=== PATIENT | female | born 1950 | race Caucasian/White ===

== ENCOUNTER → 2018-02-03 | Outpatient (CLI) | payer MEDICARE, BC ==
[2018-02-03 14:03] LABS: APPEARANCE,URINE CLEAR; BILIRUBIN,URINE NEGATIVE (NEGATIVE); COLOR,URINE YELLOW; GLUCOSE, URINE NEGATIVE (NEGATIVE); KETONES,URINE NEGATIVE (NEGATIVE); LEUKOCYTE ESTERASE,URINE SMALL (NEGATIVE); NITRITE,URINE NEGATIVE (NEGATIVE); PROTEIN,URINE NEGATIVE (NEGATIVE); URINE SPECIFIC GRAVITY 1.016; UROBILINOGEN,URINE NEGATIVE mg/dL (<2.0)
[2018-02-03 14:04] LABS: ABSOLUTE EOSINOPHILS # (AUTO) 0.2 10^3/uL (0.0-0.6); ABSOLUTE LYMPHOCYTES (AUTO) 1.4 10^3/uL (0.5-4.7); ABSOLUTE MONOCYTES (AUTO) 0.5 10^3/uL (0.1-1.4); ABSOLUTE NEUT (AUTO) 3.4 10^3/uL (1.7-8.2); BASOPHILS % (AUTO) 0.7 % (0-2); EOSINOPHILS % (AUTO) 4.2 % (0-6); HEMATOCRIT 42.5 % (36.0-47.0); HEMOGLOBIN 14.7 g/dL (12.0-15.5); LYMPHOCYTES % (AUTO) 25.7 % (13-45); MEAN CORPUSCULAR HEMOGLOBIN 29.6 pg (27.0-33.4); MEAN CORPUSCULAR HGB CONC 34.6 g/dL (32.0-36.0); MEAN CORPUSCULAR VOLUME 85 fl (80-97); MONOCYTES % (AUTO) 8.4 % (3-13); PLATELET COUNT 235 10^3/uL (150-450); RED BLOOD COUNT 4.98 10^6/uL (3.72-5.28); RED CELL DISTRIBUTION WIDTH 13.6 % (11.5-14.0); TOTAL CELLS COUNTED % (AUTO) 100 %; WHITE BLOOD COUNT 5.6 10^3/uL (4.0-10.5)
[2018-02-03 14:26] LABS: ANION GAP 8 (5-19); BLOOD UREA NITROGEN 12 mg/dL (7-20); CALCIUM 9.9 mg/dL (8.4-10.2); CARBON DIOXIDE 31 mmol/L (22-30); CHLORIDE 101 mmol/L (98-107); GLUCOSE 91 mg/dL (75-110); POTASSIUM 4.6 mmol/L (3.6-5.0); SODIUM 140.4 mmol/L (137-145)
--- NOTE | 2018-02-03 14:39 | EKG REPORT ---
SEVERITY:- ABNORMAL ECG - SINUS RHYTHM LVH BY VOLTAGE PROBABLE INFERIOR INFARCT, AGE INDETERMINATE : Confirmed by: Diana Whatley MD 03-Feb-2018 14:38:30
--- NOTE | 2018-02-03 15:04 | RADIOLOGY REPORT (SQ) ---
EXAM DESCRIPTION: CHEST PA/LATERAL COMPLETED DATE/TIME: 02/03/2018 2:51 pm REASON FOR STUDY: PRE-OP COMPARISON: None. EXAM PARAMETERS: NUMBER OF VIEWS: two views TECHNIQUE: Digital Frontal and Lateral radiographic views of the chest acquired. RADIATION DOSE: NA LIMITATIONS: none FINDINGS: LUNGS AND PLEURA: No opacities, masses or pneumothorax. No pleural effusion. MEDIASTINUM AND HILAR STRUCTURES: No masses or contour abnormalities. HEART AND VASCULAR STRUCTURES: Heart normal size. No evidence for failure. BONES: No acute findings. HARDWARE: None in the chest. OTHER: No other significant finding. IMPRESSION: NO SIGNIFICANT RADIOGRAPHIC FINDING IN THE CHEST. TECHNICAL DOCUMENTATION: JOB ID: [id number] [employer] All Rights Reserved Reading location - IP/workstation name: [email or web address]
== END ==
LOC: OD 12:49
PROVIDERS: ATTEND Orthopaedic Surgery
DX: Z01.818 Encounter for other preprocedural examination (principal); Z01.810 Encounter for preprocedural cardiovascular examination; Z01.811 Encounter for preprocedural respiratory examination; Z01.812 Encounter for preprocedural laboratory examination; E78.5 Hyperlipidemia, unspecified
CPT/HCPCS: 36415; 71046; 80048; 81001; 85025; 93005; 93010

== ENCOUNTER 2018-02-17 05:33 | Inpatient (IN) | payer MEDICARE, BC ==
[~2018-02-17 05:33] MED LIST: IBUPROFEN 800 MG in NORMAL SALINE 250 ML IV PRN; LACTATED RINGERS 1000 ML IV PRN; LANSOPRAZOLE 15 MG TAB.RAP.DR PO PRN; LIDOCAINE 0.5% INJ-PF (5 MG/ML) 50 ML SDV SUBCUT PRN; OXYCODONE HCL SR 10 MG TABLET PO PRN
[2018-02-17] MEDS ORDERED: OXYCODONE HCL SR 10 MG TABLET PO ONE (05:36)
[2018-02-17] MEDS ORDERED: LANSOPRAZOLE 15 MG TAB.RAP.DR ONE (05:36)
[2018-02-17] MEDS ORDERED: CEFAZOLIN 2 GM/D5W RTU 2 GM/50 ML RTUPB IV ONE (05:37)
[2018-02-17] MEDS ORDERED: BUPIVACAINE HCL 0.5%-EPI 1:200000 INJ/PF 30 ML VIAL ONE (06:34)
[2018-02-17] MEDS ORDERED: BUPIVACAINE INJ/PF LIPOSOME/PF 266 MG/20 ML SDV ONE (06:35)
[2018-02-17] MEDS ORDERED: FENTANYL CITRATE INJ/PF 250 MCG/5 ML AMPULE ONE (06:59)
[2018-02-17] MEDS ORDERED: HYDROMORPHONE HCL INJ/PF 2 MG/ML AMPULE ONE (06:59)
[2018-02-17] MEDS ORDERED: MIDAZOLAM 2 MG/2 ML INJ ONE (06:59)
[2018-02-17] MEDS ORDERED: FENTANYL CITRATE INJ/PF 100 MCG/2 ML AMPUL ONE (06:59)
[2018-02-17] MEDS ORDERED: DEXAMETHASONE SOD PHOSPHATE INJ 4 MG/1 ML VIAL ONE (07:00)
[2018-02-17] MEDS ORDERED: ONDANSETRON HCL INJ/PF 4 MG/2 ML SDV ONE (07:00)
[2018-02-17] MEDS ORDERED: TRANEXAMIC ACID INJ/PF 1,000 MG/10 ML SDV IV ONE ×3 (07:00→15:18)
[2018-02-17] MEDS ORDERED: PROPOFOL INJ 200 MG/20 ML VIAL IV ONE (07:00)
[2018-02-17] MEDS ORDERED: SUCCINYLCHOLINE CHLORIDE INJ 200 MG/10 ML VIAL ONE (09:03)
[2018-02-17] MEDS ORDERED: MORPHINE SULFATE 10 MG/ML INJ IV PRN (09:36)
[2018-02-17] MEDS ORDERED: PROMETHAZINE HCL INJ 25 MG/1 ML VIAL IV PRN ×2 (09:36)
[2018-02-17] MEDS ORDERED: FENTANYL CITRATE INJ/PF 100 MCG/2 ML AMPUL IV PRN ×3 (09:36)
[2018-02-17] MEDS ORDERED: OXYCODONE-ACETAMINOPHEN 5-325 MG TABLET PO PRN ×4 (09:36→11:32)
[2018-02-17] MEDS ORDERED: DIPHENHYDRAMINE HCL 50 MG/ML VIAL IV PRN (09:36)
[2018-02-17] MEDS ORDERED: MEPERIDINE HCL/PF INJ 25 MG/1 ML DISP.SYRIN IV PRN (09:36)
--- NOTE | 2018-02-17 11:01 | Operative Report ---
Operative Report DATE OF SURGERY: 02/17/18 PREOPERATIVE DIAGNOSIS: Left shoulder glenohumeral joint arthritis POSTOPERATIVE DIAGNOSIS: same OPERATION: Left total shoulder arthroplasty SURGEON: SHREYAS TOMPKINS ANESTHESIA: GA TISSUE REMOVED OR ALTERED: humeral head COMPLICATIONS: none ESTIMATED BLOOD LOSS: 200mL INTRAOPERATIVE FINDINGS: as above PROCEDURE: Arthrex apex stem size 9 mm Humeral head component was a 44/17 mm Glenoid component was a size medium Patient received antibiotics in the preop holding area. Patient was transferred to the OR where the patient was successfully intubated. Patient then was secured in a beachchair position where the left shoulder was prepped and draped in a normal sterile surgical fashion. Once timeout was done identifying the left shoulder the correct site I proceeded to use quarter percent Marcaine with epinephrine and injected in the anticipated incision. I used a 10 blade to status my incision and then used hemostasis with electrocautery. I exposed the deltopectoral interval and proceeded to do a deltopectoral approach. I retracted the conjoined tendon medially and dissecting the cephalic vein and deltoid and retracting it laterally. I reflected the subscapularis tendon off the lesser tuberosity and tagged it with a Vicryl stitch. I proceeded to release capsule to dislocate the shoulder joint. While the head was dislocated I was able to resect inferior humeral osteophyte as expected Rotator cuff is intact. I proceeded applied the guide and pinned securely after I make sure I was satisfied with the angle and retroversion of my humeral head cut. Humeral head cut was done with an oscillating saw and the piece was placed in the back table for measurement. The pins were removed and then we proceeded to broach all the way up to the appropriate size. The humeral shaft was then reflected posteriorly and glenoid retractors were placed which gave us good glenoid exposure. Labrum and superior biceps stump was resected exposing the glenoid. I proceeded then to use the glenoid guide to drill and the center portion of the glenoid. I then proceeded to ream and I had bleeding bone. Also satisfied with the size of the glenoid and then proceeded to drill the peg holes. A trial glenoid was applied and then retractors removed and the humeral head was exposed. We placed a trial head and proceeded to test range of motion and stability. Once I was satisfied with the appropriate size used and I proceeded to remove all components. I first removed the glenoid and cemented it in. wait until cement had cured and hardened. Any excess cement was removed. I then proceeded to remove the humeral stem and placed the final stem. Of note I had placed 2 drill holes in the lesser tuberosity and place FiberWire with its appropriate needle for fixation and repair of the subscapularis tendon. I followed the Arthrex technique as described in their pamphlet. Secured the inferior and superior screw using the torque limiter. Once the glenoid and stem was seated I trialed with humeral head one more time and then placed the final humeral head component. Irrigation was done at this point. I tied the sutures as instructed by the technique. Placed the arm in range of motion and noticed that the repair was solid. At this point we turned to closure and we approximated the deltoid interval after removing the retractors and closed the subcutaneous tissue with 0 Vicryl and 2-0 Vicryl. Exparel had been injected deep and then superficially. I proceeded then to close my subtenons tissue with 0 Vicryl and 2-0 Vicryl for the dermis and milagro for skin. Acticoat was applied and then covered with an OpSite dressing. Drapes were removed and the sling was applied and then the patient was placed in supine position where the patient was extubated and sent to PACU in stable condition.
[2018-02-17] MEDS ORDERED: ONDANSETRON HCL INJ/PF 4 MG/2 ML SDV IV PRN (11:15)
[2018-02-17] MEDS ORDERED: MAG HYDROX/AL HYDROX/SIMETH SUSP 30 ML UDCUP PO PRN (11:15)
[2018-02-17] MEDS ORDERED: RINGERS SOLUTION,LACTATED 1,000 ML IV PRN (11:15)
[2018-02-17] MEDS ORDERED: ESCITALOPRAM OXALATE 10 MG TABLET PO PRN (11:19)
[2018-02-17] MEDS: FENTANYL CITRATE INJ/PF 100 MCG/2 ML AMPUL ONE ×2 (11:32→11:37)
--- NOTE | 2018-02-17 12:52 | RADIOLOGY REPORT (SQ) ---
EXAM DESCRIPTION: SHOULDER LEFT 2 OR MORE VIEWS COMPLETED DATE/TIME: 02/17/2018 12:26 pm REASON FOR STUDY: S/P LEFT SHOULDER ARTHROPLASTY. M19.012 PRIMARY OSTEOARTHRITIS, LEFT SHOULDER COMPARISON: None. NUMBER OF VIEWS: Three views. TECHNIQUE: Internal rotation, external rotation, images acquired of the left shoulder. LIMITATIONS: None. FINDINGS: MINERALIZATION: Normal. BONES: No acute fracture or dislocation. JOINTS: The patient is in a cast which limits positioning. Status post left shoulder arthroplasty. VISUALIZED LUNGS AND RIBS: No pneumothorax. No rib fracture. SOFT TISSUES: Post surgical changes. OTHER: No other significant finding. IMPRESSION: 1. Status post left shoulder arthroplasty. TECHNICAL DOCUMENTATION: JOB ID: [id number] [employer]- All Rights Reserved Reading location - IP/workstation name: [email or web address]
[2018-02-17] MEDS: ONDANSETRON HCL INJ/PF 4 MG/2 ML SDV IV PRN ×2 (15:05→21:46)
[2018-02-17] MEDS: SENNOSIDES/DOCUSATE 8.6-50 MG 1 EACH TABLET PO SCH (18:05)
[2018-02-17] MEDS: OXYCODONE HCL SR 10 MG TABLET PO SCH (18:05)
[2018-02-17] MEDS: PREGABALIN 75 MG CAPSULE PO SCH (18:05)
[2018-02-17] MEDS: IBUPROFEN 800 MG in NORMAL SALINE 250 ML IV SCH (18:16)
[2018-02-17] MEDS ORDERED: VANCOMYCIN HCL 1,000 MG in DEXTROSE 5%-WATER 250 ML IV ONE (23:00)
[2018-02-18] MEDS: IBUPROFEN 800 MG in NORMAL SALINE 250 ML IV SCH ×3 (03:20→18:09)
[2018-02-18] MEDS: OXYCODONE HCL SR 10 MG TABLET PO SCH ×2 (05:00→17:53)
[2018-02-18] MEDS: PREGABALIN 75 MG CAPSULE PO SCH ×2 (05:00→17:53)
[2018-02-18] MEDS ORDERED: LANSOPRAZOLE 30 MG TAB.RAP.DR PO SCH (06:00)
[2018-02-18 06:12] LABS: HEMOGLOBIN 12.2 g/dL (12.0-15.5); MEAN CORPUSCULAR HEMOGLOBIN 29.2 pg (27.0-33.4); MEAN CORPUSCULAR VOLUME 86 fl (80-97); PLATELET COUNT 202 10^3/uL (150-450); RED BLOOD COUNT 4.19 10^6/uL (3.72-5.28); RED CELL DISTRIBUTION WIDTH 13.9 % (11.5-14.0); WHITE BLOOD COUNT 12.6 10^3/uL (4.0-10.5)
[2018-02-18 06:31] LABS: ANION GAP 8 (5-19); BLOOD UREA NITROGEN 13 mg/dL (7-20); CALCIUM 8.9 mg/dL (8.4-10.2); CARBON DIOXIDE 28 mmol/L (22-30); CHLORIDE 102 mmol/L (98-107); GLUCOSE 115 mg/dL (75-110); POTASSIUM 4.2 mmol/L (3.6-5.0); SODIUM 138.1 mmol/L (137-145)
[2018-02-18] MEDS ORDERED: PRENATAL VITAMIN W DHA CAPSULE PO SCH (10:00)
[2018-02-18] MEDS: SENNOSIDES/DOCUSATE 8.6-50 MG 1 EACH TABLET PO SCH ×2 (10:15→17:53)
--- NOTE | 2018-02-18 15:58 | PDOC DISCHARGE SUMMARY ---
General - Admit/Disc Date/PCP Admission Date/Primary Care Provider: 02/17/18 05:33 VERONICA WHEATLEY MD Discharge Date: 02/18/18 - Discharge Diagnosis (1) Status post total shoulder arthroplasty Is this a current diagnosis for this admission?: Yes - Additional Information Resuscitation Status: Full Code Home Medications: Acetaminophen [Tylenol 325 mg Tablet] 650 mg PO Q4HP PRN 02/17/18 Atorvastatin Calcium [Lipitor 10 mg Tablet] 10 mg PO QHS 02/17/18 Escitalopram Oxalate [Lexapro 10 mg Tablet] 10 mg PO DAILY 02/17/18 Naproxen Sodium [Aleve] 220 mg PO Q8HP PRN 02/17/18 History of Present Illness History of Present Illness: SONA DE LA PAZ is a 67 year old female with known left shoulder arthritis. Patient went through conservative treatment including injection and home exercises. She also took anti-inflammatories but at some point patient's pain was not well controlled so the patient elected to proceed with left total shoulder arthroplasty. Surgery was done on 02/17/2018. Surgery was uneventful. Patient was admitted overnight for pain control. No issues overnight. Pain adequately controlled with p.o. narcotics. No fevers or chills. No numbness or tingling or paresthesias. Patient will be discharged on 02/18/2018. Hospital Course Hospital Course: On 02/17/2018 patient underwent left total shoulder arthroplasty. Today on 02/18/2018 patient's pain is well controlled with oxycodone. Sling is in proper place. She is neurovascular intact. Vital signs are stable and labs are within normal limits therefore she will be discharged today to home. Physical Exam Vital Signs: Temp Pulse Resp BP Pulse Ox 36.6 C 66 14 135/62 H 94 02/18/18 12:02 02/18/18 12:02 02/18/18 12:02 02/18/18 12:02 02/18/18 12:02 Intake & Output 02/17/18 02/18/18 02/19/18 06:59 06:59 06:59 Intake Total 0 1550 242 Output Total 1600 Balance 0 -50 242 Weight 86.18 kg 98.8 kg General appearance: PRESENT: no acute distress Eye exam: PRESENT: EOMI. ABSENT: nystagmus Mouth exam: PRESENT: neck supple Adult Front & Back Image: 1 - Dressing is dry clean and intact. Left upper extremity in the sling and well-positioned. Has good sensation to light touch in the radial ulnar nerve distribution. Able to flex and extend her wrist and digits without difficulty. Good capillary refill and good radial pulse. Results Laboratory Results: 02/18/18 05:44 02/18/18 05:44 02/18/18 02/18/18 05:44 05:44 WBC 12.6 H RBC 4.19 Hgb 12.2 Hct 36.0 MCV 86 MCH 29.2 MCHC 34.0 RDW 13.9 Plt Count 202 Sodium 138.1 Potassium 4.2 Chloride 102 Carbon Dioxide 28 Anion Gap 8 BUN 13 Creatinine 0.51 L Est GFR ( Amer) > 60 Est GFR (Non-Af Amer) > 60 Glucose 115 H Calcium 8.9 Impressions: Shoulder X-Ray 02/17/18 00:00 IMPRESSION: 1. Status post left shoulder arthroplasty. Status: Image reviewed by me Qualifiers - * PATIENT BEING DISCHARGED WITH ANY OF THE FOLLOWING DIAGNOSIS: No VTE patient discharged on overlapping Therapy?: No Reason(s) for not prescribing Overlap Therapy:: Not indicated Plan Discharge Plan: Patient is status post left total shoulder arthroplasty. Surgery went uneventful. X-rays showed good position of the implants. On exam she has a sling placed in appropriate position. She is neurovascular intact. Dressing is dry clean and intact. Patient instructed to follow-up in 10-14 days for wound check. Instructed to do pendulum exercises and passive range of motion exercises. Instructed to remove the dressing and couple days and then okay to shower the extremity. After showering she should keep it dry clean and intact. Able to do the pendulum exercises at breakfast, lunch, dinner and showers. Instructed to follow-up in the office sooner if she develops fevers chills nausea vomiting redness or any other symptoms. Prescriptions were provided for pain control and nausea.
[2018-02-18 16:49] VITALS: BP 136/70
[2018-02-18] MEDS ORDERED: ATORVASTATIN CALCIUM 10 MG TABLET PO SCH (22:00)
== END 2018-02-18 18:27 | disposition home health service (06) | DRG 483 ==
LOC: INOR 05:33 → 4S 12:40
PROVIDERS: ADMIT Orthopaedic Surgery; ATTEND Orthopaedic Surgery
PROC: 0RRK0JZ Replacement of Left Shoulder Joint with Synthetic Substitute, Open Approach (ICD-10-PCS; principal; 2018-02-17 07:30)
DX: M19.012 Primary osteoarthritis, left shoulder (principal); E78.00 Pure hypercholesterolemia, unspecified; F41.9 Anxiety disorder, unspecified
CPT/HCPCS: 01630; 36415; 80048; 82962; 85027; 86850; 86900; 86901; 88304; 88311; 94799; C1713; C9290; G8978-GP; G8979-GP; G8987-GO; G8988-GO; J0330; J0690; J1100; J1170; J1741; J2250; J2405; J2704; J3010; J3370; J3490; J7050; J7060

== ENCOUNTER 2020-06-01 23:17 | Inpatient (IN) | payer MEDICARE, BC ==
[2020-06-01] MEDS ORDERED: HYDROMORPHONE HCL INJ/PF 2 MG/ML AMPULE IV ONE (23:26)
[2020-06-01] MEDS ORDERED: ONDANSETRON HCL INJ/PF 4 MG/2 ML SDV IV ONE (23:26)
--- NOTE | 2020-06-01 23:28 | ER Document Report ---
ED Medical Screen (RME) - General Stated Complaint: POST OP ISSUES Time Seen by Provider: 06/01/20 23:23 Primary Care Provider: SHREYAS WALKER MD [Primary Care Provider] - Follow up as needed Notes: Patient is a 69-year-old female who presents emergency department with a chief complaint of upper abdominal pain. Patient is status post cholecystectomy as of 4 days ago. Patient started vomiting today. States the only pain medicine she took was Tylenol. Exam: Patient doubled over in pain. Moaning. I have greeted and performed a rapid initial assessment of this patient. A comprehensive ED assessment and evaluation of the patient, analysis of test results and completion of medical decision making process will be conducted by an additional ED providers. TRAVEL OUTSIDE OF THE [place] IN LAST 30 DAYS: No - Related Data Allergies/Adverse Reactions: No Known Allergies Allergy (Verified 02/02/18 11:15) Past Medical History - Past Medical History Cardiac Medical History: Reports: Hx Hypercholesterolemia Denies: Hx Atrial Fibrillation, Hx Congestive Heart Failure, Hx Coronary Artery Disease, Hx Heart Attack, Hx Hypertension, Hx Peripheral Vascular Disease, Hx Heart Murmur Pulmonary Medical History: Denies: Hx Asthma, Hx Bronchitis, Hx COPD, Hx Pneumonia, Hx Sleep Apnea Neurological Medical History: Denies: Hx Cerebrovascular Accident, Hx Seizures Endocrine Medical History: Denies: Hx Hyperthyroidism, Hx Hypothyroidism Renal/ Medical History: Denies: Hx Kidney Stones GI Medical History: Denies: Hx Gastroesophageal Reflux Disease Musculoskeltal Medical History: Reports Hx Arthritis - shoulder, Denies Hx Fibromyalgia, Denies Hx Muscular Dystrophy Psychiatric Medical History: Denies: Hx Bipolar Disorder, Hx Depression, Hx Post Traumatic Stress Disorder Traumatic Medical History: Denies: Hx Fractures Past Surgical History: Reports: Hx Hysterectomy. Denies: Hx Appendectomy, Hx Bowel Surgery, Hx Section, Hx Cholecystectomy, Hx Coronary Artery Bypass Graft, Hx Gastric Bypass Surgery, Hx Herniorrhaphy, Hx Mastectomy, Hx Pacemaker, Hx Tonsillectomy, Hx Tubal Ligation Physical Exam - Vital signs Vitals: Temp Pulse Resp BP Pulse Ox 97.8 F 85 18 151/86 H 96 06/01/20 23:22 06/01/20 23:22 06/01/20 23:22 06/01/20 23:22 06/01/20 23:22 Course - Vital Signs Vital signs: Temp Pulse Resp BP Pulse Ox 97.8 F 85 18 151/86 H 96 06/01/20 23:22 06/01/20 23:22 06/01/20 23:22 06/01/20 23:22 06/01/20 23:22 Doctor's Discharge - Discharge Referrals: SHREYAS WALKER MD [Primary Care Provider] - Follow up as needed
[2020-06-01 23:52] LABS: ABSOLUTE BASOPHILS # (AUTO) 0.2 10^3/uL (0.0-0.2); ABSOLUTE EOSINOPHILS # (AUTO) 0.2 10^3/uL (0.0-0.6); ABSOLUTE LYMPHOCYTES (AUTO) 2.2 10^3/uL (0.5-4.7); ABSOLUTE MONOCYTES (AUTO) 0.9 10^3/uL (0.1-1.4); ABSOLUTE NEUT (AUTO) 11.8 10^3/uL (1.7-8.2); BASOPHILS % (AUTO) 1.2 % (0-2); EOSINOPHILS % (AUTO) 1.1 % (0-6); HEMATOCRIT 48.9 % (36.0-47.0); HEMOGLOBIN 16.4 g/dL (12.0-15.5); LYMPHOCYTES % (AUTO) 14.3 % (13-45); MEAN CORPUSCULAR HEMOGLOBIN 27.8 pg (27.0-33.4); MEAN CORPUSCULAR HGB CONC 33.6 g/dL (32.0-36.0); MEAN CORPUSCULAR VOLUME 83 fl (80-97); MONOCYTES % (AUTO) 5.7 % (3-13); PLATELET COUNT 353 10^3/uL (150-450); RED CELL DISTRIBUTION WIDTH 13.9 % (11.5-14.0); SEGMENTED NEUTROPHILS % (AUTO) 77.7 % (42-78); TOTAL CELLS COUNTED % (AUTO) 100 %; WHITE BLOOD COUNT 15.2 10^3/uL (4.0-10.5)
[2020-06-02] MEDS ORDERED: NORMAL SALINE 1000 ML 1,000 ML IV ONE
--- NOTE | 2020-06-02 00:04 | ER Document Report ---
ED GI/ <TITO SANCHEZ - Last Filed: 06/02/20 19:33> - General Mode of Arrival: Ambulatory Information source: Patient TRAVEL OUTSIDE OF THE [place] IN LAST 30 DAYS: No - HPI Patient complains to provider of: Abdominal pain, Vomiting Onset: This afternoon Timing/Duration: Intermittent Quality of pain: Sharp Severity at maximum: Severe Severity in ED: Severe Pain Level: 5 Location: RUQ Vaginal bleeding (Compared to normal period): None Associated symptoms: Nausea, Vomiting Exacerbated by: Movement, Walking Relieved by: Denies Similar symptoms previously: Yes Recently seen / treated by doctor: Yes <DARYLMelaniePRUDENCEJHONAINSLEY - Last Filed: 06/03/20 07:04> - General Chief Complaint: Post Surgical Pain Stated Complaint: POST OP ISSUES Time Seen by Provider: 06/01/20 23:23 Primary Care Provider: SHREYAS WALKER MD [ACTIVE STAFF] - Follow up as needed Notes: 69-year-old female presented to ED for complaint of upper abdominal pain. She states she had her gallbladder removed Wednesday about 4 days ago. She states she has only been taking Tylenol for her pain. She states she been having nausea and vomiting all day. She is alert oriented respirations regular nonlabored. She is moaning in pain. She states the pain is severe. She states she does have pain medicine but she is not taking any of it. She states she had the gallbladder removed in [place] at [facility] surgery. Constitutional: Negative for fever. HENT: Negative for sore throat. Eyes: Negative for visual changes. Cardiovascular: Negative for chest pain. Respiratory: Negative for shortness of breath. Gastrointestinal: Upper mid to right abdominal pain. She does have fresh incisional wounds from endoscopic gallbladder removal. Bowel sounds are present. She states she did have a bowel movement today. She states she has been nausea and vomiting today due to the pain. Genitourinary: Negative for dysuria. Musculoskeletal: Negative for back pain. Skin: Negative for rash. Neurological: Negative for headaches, weakness or numbness. 10 point ROS negative except as marked above and in HPI. VITAL SIGNS: Within normal limits. GENERAL: No acute distress, non-toxic appearance. HEAD: Normal with no signs of head trauma. EYES: PERRLA, EOMI, conjunctiva normal, no discharge. EARS: Hearing grossly intact. NOSE: Normal. THROAT: Oropharynx is normal. NECK: Normal range of motion, no tenderness, supple, no lymphadenopathy, No adenopathy, no JVD. CHEST: Clear breath sounds bilaterally. No wheezes, rales, or rhonchi. CARDIAC: Regular rate and rhythm. S1 and S2, without murmurs, gallops, or rubs. VASCULAR: No Edema. Peripheral pulses normal and equal in all extremities. ABDOMEN: Right upper quadrant abdominal tenderness no definite pulsatile masses. She does have 5 fresh surgical incisions from a cholecystectomy 4 days ago GASTROINTESTINAL: Bowel sounds normal GENITOURINARY: Normal, No tenderness LYMPATHTIC: No lymphadenopathy noted. MUSCULOSKELETAL: Good range of motion of all major joints. Extremities without clubbing, cyanosis or edema. NEUROLOGICAL: Alert and oriented x 3. No focal sensory or strength deficits. Speech normal. Follows commands appropriately. PSYCHIATRIC: Normal Affect, judgement and mood. SKIN: Normal appearance with no rashes or lesions. (AINSLEY ESPINAL) - Related Data Allergies/Adverse Reactions: No Known Allergies Allergy (Verified 02/02/18 11:15) Past Medical History - General Information source: Patient - Social History Smoking Status: Never Smoker Frequency of alcohol use: None Drug Abuse: None Lives with: Alone Family History: Reviewed & Not Pertinent Patient has homicidal ideation: No - Past Medical History Cardiac Medical History: Reports: Hx Hypercholesterolemia Pulmonary Medical History: Reports: None EENT Medical History: Reports: None Neurological Medical History: Reports: None Endocrine Medical History: Reports: None Renal/ Medical History: Reports: None Malignancy Medical History: Reports: None GI Medical History: Reports: Hx Colonoscopy, Hx Endoscopy Musculoskeletal Medical History: Reports Hx Arthritis - shoulder Skin Medical History: Reports None Psychiatric Medical History: Reports: None Traumatic Medical History: Reports: None Infectious Medical History: Reports: None Past Surgical History: Reports: Hx Cholecystectomy, Hx Hysterectomy - Immunizations Immunizations up to date: Yes Hx Diphtheria, Pertussis, Tetanus Vaccination: Yes <AINSLEY ESPINAL - Last Filed: 06/03/20 07:04> Physical Exam - Vital signs Vitals: Temp Pulse Resp BP Pulse Ox 97.8 F 85 18 151/86 H 96 06/01/20 23:22 06/01/20 23:22 06/01/20 23:22 06/01/20 23:22 06/01/20 23:22 Course - Laboratory Results Result Diagrams: 06/02/20 08:26 06/02/20 08:26 <TITO SANCHEZ Joaquina - Last Filed: 06/02/20 19:33> - Laboratory Results Result Diagrams: 06/03/20 02:27 06/03/20 06:09 Critical Laboratory Results Reviewed: No Critical Results - Radiology Results Critical Radiology Results Reviewed: No Critical Results <MICKYJHONAINSLEY - Last Filed: 06/03/20 07:04> - Re-evaluation Re-evalutation: 06/02/20 08:47 rePort was received on the patient. I reviewed the patient's lab work. I have ordered morning labs for the patient to recheck her lab work. Her vital signs are normal. I did evaluate the patient and speak with the patient at length. She is awaiting transfer back to [facility], last conversation was approximatel y 2:30 in the morning with [facility]. Will plan to check with the transfer center this morning about bed status. Patient will remain n.p.o. 06/02/20 09:45 Patient's lab work is improved. Her liver functions are elevating slightly but her lipase has decreased to approximately 9000 from 59,000. 06/02/20 11:[address] Lindsay, surgery. We discussed the patient's case, CT imaging, lab work. Patient's T bili is 3.3 this morning which is slightly elevated from prior. He indicates patient likely has a blocking stone or an obstructive process and she will need transfer to [facility] for care she likely needs ERCP. We do not have GI on-call here today and patient had recent surgery at [facility]. We will call [facility] to discuss the patient's lab work with them. 06/02/20 11:55 I spoke with the transfer center at [facility], they will repage surgery to discuss the patient's repeat lab work and management plan 06/02/20 12:[address] Paez, surgery [facility]. They are still on regional divert. We discussed the patient's lab work and elevated T bili. She suggests MRCP to see if there is a retained stone. She did review the CT imaging. She states that patient definitely may need ERCP, aware we do not have GI on-call and cannot do ERCP. 06/02/20 14:49 I spoke with [facility] to request Dr. Paez review MRCP and call me back 06/02/20 15:[address] Paez, surgery [facility]. She indicates that she sat down with the radiologist down there and reviewed the MRCP images, they do not see any ductal dilatation or stone and suggests the patient likely just needs treatment for acute severe pancreatitis. They are still willing to take the patient but they still do not have a spot for the patient. I will discuss with Dr. Lindsay, surgeon at [facility] whether patient might be able to be treated here, she indicates that she is very willing to speak with him about it as well. 06/02/20 15:[address] Lindsay surgeon at [facility]. He states with the patient's elevated bilirubin she needs an ERCP which we cannot do here. That as this is a complication of her recent surgery at [facility] they are obligated to take the patient back there which they have agreed to do although she is on a regional wait list. He does not believe that the patient should be admitted here at [facility] as we do not have the capability to have an ERCP done at this time and do not have GI coverage today 06/02/20 15:[address] Grant, hospitalist. Have requested they come consult on the patient for medical management while she is awaiting transfer to higher level of care, we discussed the patient's evaluation, imaging and lab work studies, transfer plan and she will come see the patient 06/02/20 19:34 I was requested to call Dr. Bay by nursing, who is not public relations senior associate today but is on tomorrow to see if he can see the patient tomorrow to do an ERCP. He did not answer his cell phone so a message was left by the rail operator to call us back (TITO SANCHEZ) 06/02/20 02:37 Consult to [facility] spoke with Dr. Gee for Dr Nogueira the surgeon, Concerning postop complication with pancreatitis 4 days after a cholecystectomy. He stated he would accept the patient to the surgical floor but it would be a regional hold patient and it would be a bed available. 06/02/20 07:24 Patient has been ordered Zosyn 3.375 mg every 6 hours IV, she is on lactated Ringer's 125's milliliters an hour continuous, and she has been medicated throughout the night with Dilaudid 0.5 mg IV as needed for pain. She did receive Zofran 4 mg IV twice for nausea. She has been allowed to take small amounts of ice chips for her dry mouth. She is waiting transfer to [facility]. 06/02/20 08:05 Patient is still waiting room. Report given to Tito DANIEL 06/02/20 21:[address] Bay the industrial aerial installer. He stated he is not public relations senior associate to the ER today or tomorrow and he does not have states in his schedule tomorrow for any ERCP. 06/03/20 02:16 [facility] stated they still do not have a bed for this patient. They recommended we try another hospital. We will repeat labs at this time. And then attempt to call other hospitals. 06/03/20 05:13 Repeated labs on patient around 230. The liver enzymes and lipase are trending down but the white count has trended up to 18.6. I did consult Dr. Daley is the hospitalist. He stated that the main thing is to get her transferred to the other facility but it was pancreatitis sometimes the white count might go up or down and it does not mean that she needs a new antibiotic as long as her vital signs are stable. 06/03/20 07:02 [facility] returned the call that they did not have any beds available. [facility] [place] called back and I spoke with the Dr. Granados. She states that they have a biliary service that is not open at nighttime but that they do ERCPs on what is called a day pass. She states if the patient is admitted to an inpatient bed that they can take a day pass to [facility] have an ERCP if that is deemed necessary and then come back there to their admitted bed. She states if this is appropriate for this patient then the admitted doctor would need to call [facility] transfer center and speak to biliary services and the doctor on today would be Crystal Rob MD. If this is deemed necessary this is the only route they have for this patient as they do not have an open bed either (AINSLEY ESPINAL) - Vital Signs Vital signs: Temp Pulse Resp BP Pulse Ox 98 F 87 13 139/64 H 96 06/03/20 01:24 06/02/20 15:00 06/03/20 06:01 06/03/20 06:01 06/03/20 06:01 - Laboratory Results Laboratory Results Interpreted: 06/01/20 06/01/20 06/02/20 23:35 23:35 05:52 WBC 15.2 H RBC 5.90 H Hgb 16.4 H Hct 48.9 H RDW Absolute Neuts (auto) 11.8 H Seg Neuts % (Manual) Lymphocytes % (Manual) Monocytes % (Manual) Abs Neuts (Manual) Carbon Dioxide Glucose 193 H POC Glucose Total Bilirubin 3.1 H Direct Bilirubin 2.1 H AST 1320 H ALT 1015 H Alkaline Phosphatase 534 H Total Protein Albumin Lipase 82180.8 H Urine Ketones TRACE H Urine Urobilinogen 4.0 H 06/02/20 06/02/20 06/02/20 08:26 08:26 19:06 WBC 12.9 H RBC Hgb Hct RDW 14.2 H Absolute Neuts (auto) Seg Neuts % (Manual) 91 H Lymphocytes % (Manual) 7 L Monocytes % (Manual) 2 L Abs Neuts (Manual) 11.7 H Carbon Dioxide Glucose 168 H POC Glucose 116 H Total Bilirubin 3.3 H Direct Bilirubin 2.3 H AST 846 H ALT 982 H Alkaline Phosphatase 463 H Total Protein Albumin Lipase 9465.9 H Urine Ketones Urine Urobilinogen 06/03/20 06/03/20 06/03/20 02:27 02:27 06:09 WBC 18.6 H RBC Hgb Hct RDW 14.2 H Absolute Neuts (auto) Seg Neuts % (Manual) 87 H Lymphocytes % (Manual) 8 L Monocytes % (Manual) Abs Neuts (Manual) 16.2 H Carbon Dioxide 31 H Glucose 114 H 111 H POC Glucose Total Bilirubin 1.7 H 1.6 H Direct Bilirubin 0.7 H 0.6 H AST 262 H 195 H ALT 649 H 577 H Alkaline Phosphatase 365 H 339 H Total Protein 5.8 L 5.6 L Albumin 3.2 L 3.1 L Lipase 2508.1 H Urine Ketones Urine Urobilinogen Discharge <TITO SANCHEZ - Last Filed: 06/02/20 19:33> <AINSLEY ESPINAL - Last Filed: 06/03/20 07:04> - Discharge Clinical Impression: Elevated LFTs Acute pancreatitis Qualifiers: Pancreatitis type: unspecified pancreatitis type Acute pancreatitis complication: unspecified Qualified Code(s): K85.90 - Acute pancreatitis without necrosis or infection, unspecified Disposition: [facility] Referrals: SHREYAS WALKER MD [ACTIVE STAFF] - Follow up as needed
[2020-06-02 00:11] LABS: ALBUMIN 4.4 g/dL (3.5-5.0); ALKALINE PHOSPHATASE 534 U/L (38-126); ANION GAP 8 (5-19); BILIRUBIN,DIRECT 2.1 mg/dL (0.0-0.4); BILIRUBIN,TOTAL 3.1 mg/dL (0.2-1.3); BLOOD UREA NITROGEN 14 mg/dL (7-20); CALCIUM 10.2 mg/dL (8.4-10.2); CARBON DIOXIDE 29 mmol/L (22-30); CHLORIDE 102 mmol/L (98-107); GLUCOSE 193 mg/dL (75-110); POTASSIUM 4.2 mmol/L (3.6-5.0); TOTAL PROTEIN 7.6 g/dL (6.3-8.2)
[2020-06-02 00:19] LABS: ASPARTATE AMINO TRANSFERASE 1320 U/L (14-36)
--- NOTE | 2020-06-02 01:42 | RADIOLOGY REPORT (SQ) ---
CLINICAL HISTORY: Abdominal pain post cholecystectomy COMPARISON: None. TECHNIQUE: CT ABDOMEN PELVIS WITH IV CONTRAST on 06/02/2020 12:35 AM PRIVACY ATTORNEY This exam was performed according to our departmental dose-optimization program, which includes automated exposure control, adjustment of the mA and/or kV according to patient size and/or use of iterative reconstruction technique. FINDINGS: There is mild bibasilar atelectasis. There is a pectus excavatum. Abdomen: The liver is normal in appearance. There is no biliary dilatation. Gallbladder is not clearly seen. There is a small hiatal hernia. There is moderate inflammation surrounding the pancreas diffusely. The adrenal glands and kidneys are unremarkable. Abdominal aorta is normal in course and caliber without aneurysm. There is no free air. There is no retroperitoneal adenopathy. Pelvis: There is no bowel obstruction. Urinary bladder is unremarkable. There is no free fluid. Hysterectomy was performed. Appendix is not clearly seen. There is mild infiltration of the fat surrounding the umbilicus. Skeleton: There are no acute osseous findings. No suspicious bony lesions. IMPRESSION: Acute pancreatitis.
[2020-06-02] MEDS ORDERED: HYDROMORPHONE HCL INJ/PF 2 MG/ML AMPULE IV ONE ×2 (02:14→06:31)
[2020-06-02] MEDS ORDERED: RINGERS SOLUTION,LACTATED 1,000 ML IV ONE (02:15)
[2020-06-02] MEDS ORDERED: PIPERACILLIN/TAZOBACTAM 3.375 GM VIAL IV ONE (02:22)
[2020-06-02] MEDS ORDERED: ONDANSETRON HCL INJ/PF 4 MG/2 ML SDV IV ONE ×2 (02:30→13:10)
[2020-06-02] MEDS ORDERED: RINGERS SOLUTION,LACTATED 1,000 ML IV PRN (03:30)
[2020-06-02] MEDS: PIPERACILLIN/TAZOBACTAM 3.375 GM VIAL IV SCH ×4 (03:49→21:38)
[2020-06-02 06:21] LABS: APPEARANCE,URINE CLEAR; BILIRUBIN,URINE NEGATIVE (NEGATIVE); COLOR,URINE AMBER; GLUCOSE, URINE NEGATIVE (NEGATIVE); KETONES,URINE TRACE mg/dL (NEGATIVE); LEUKOCYTE ESTERASE,URINE NEGATIVE (NEGATIVE); NITRITE,URINE NEGATIVE (NEGATIVE); PROTEIN,URINE NEGATIVE (NEGATIVE); URINE SPECIFIC GRAVITY 1.057
[2020-06-02 08:38] LABS: HEMATOCRIT 44.2 % (36.0-47.0); HEMOGLOBIN 14.7 g/dL (12.0-15.5); MEAN CORPUSCULAR HEMOGLOBIN 28.2 pg (27.0-33.4); MEAN CORPUSCULAR HGB CONC 33.2 g/dL (32.0-36.0); MEAN CORPUSCULAR VOLUME 85 fl (80-97); PLATELET COUNT 263 10^3/uL (150-450); RED BLOOD COUNT 5.21 10^6/uL (3.72-5.28); RED CELL DISTRIBUTION WIDTH 14.2 % (11.5-14.0); WHITE BLOOD COUNT 12.9 10^3/uL (4.0-10.5)
[2020-06-02 08:56] LABS: ALBUMIN 3.7 g/dL (3.5-5.0); ALKALINE PHOSPHATASE 463 U/L (38-126); ANION GAP 5 (5-19); BILIRUBIN,DIRECT 2.3 mg/dL (0.0-0.4); BILIRUBIN,TOTAL 3.3 mg/dL (0.2-1.3); BLOOD UREA NITROGEN 11 mg/dL (7-20); CARBON DIOXIDE 30 mmol/L (22-30); CHLORIDE 105 mmol/L (98-107); GLUCOSE 168 mg/dL (75-110); POTASSIUM 4.5 mmol/L (3.6-5.0); TOTAL PROTEIN 6.5 g/dL (6.3-8.2)
[2020-06-02 09:05] LABS: ABSOLUTE LYMPHOCYTES# (MANUAL) 0.9 10^3/uL (0.5-4.7); ABSOLUTE MONOCYTES # (MANUAL) 0.3 10^3/uL (0.1-1.4); BASOPHILS % (MANUAL) 0 % (0-2); EOSINOPHILS % (MANUAL) 0 % (0-6); LYMPHOCYTES % (MANUAL) 7 % (13-45); MONOCYTES % (MANUAL) 2 % (3-13); SEGMENTED NEUTROPHILS % (MAN) 91 % (42-78); TOTAL CELLS COUNTED 100
[2020-06-02 09:06] LABS: ANISOCYTOSIS SLIGHT; PLATELET COMMENT ADEQUATE
[2020-06-02 09:07] LABS: ASPARTATE AMINO TRANSFERASE 846 U/L (14-36)
[2020-06-02] MEDS ORDERED: MORPHINE SULFATE 10 MG/ML INJ IV ONE ×2 (09:59→15:03)
--- NOTE | 2020-06-02 14:46 | RADIOLOGY REPORT (SQ) ---
EXAM DESCRIPTION: MRI ABDOMEN WITHOUT IMAGES COMPLETED DATE/TIME: 06/02/2020 2:25 pm REASON FOR STUDY: MRCP for retained stone s/p lap juan ramon COMPARISON: 06/02/2020 CT TECHNIQUE: Noncontrast MRCP. Source and MIP images reviewed. LIMITATIONS: None. FINDINGS: GALLBLADDER: Surgically absent. INTRAHEPATIC DUCTS: Within normal limits. EXTRAHEPATIC DUCTS: Common duct is 8 mm. No dilatation of the pancreatic duct. No ductal filling de fects noted. PANCREAS: Diffuse inflammatory changes - fluid around the pancreas. Pancreatic duct is normal. LIVER, SPLEEN, KIDNEYS, ADRENALS: No significant abnormality. Small anterior left lobe hepatic cyst. VESSELS: No evidence of aneurysm. Grossly appropriate flow voids in the major vascular structures. LUNG BASES: Grossly clear. OTHER: No other significant finding. IMPRESSION: No ductal stones -defects identified. Diffuse inflammatory changes - fluid around the pancreas. TECHNICAL DOCUMENTATION: JOB ID: [id number] [id number] [employer]- All Rights Reserved Reading location - IP/workstation name: [email or web address]
[2020-06-02] MEDS ORDERED: ACETAMINOPHEN 650 MG SUPP.RECT PR PRN (16:03)
--- NOTE | 2020-06-02 16:40 | PDOC CONSULTATION ---
Consultation Consult Date: 06/02/20 Attending physician:: TITO SANCHEZ Provider Consulted: POLO NUÑEZ Consult reason:: Acute Pancreatitis History of Present Illness Admission Date/PCP: CHIO MCINTYRE PA-C Patient complains of: Abdominal pain History of Present Illness: SONA DE LA PAZ is a 69 year old female, PMH of HLD who came in due to abdominal pain. Patient recently underwent outpatient Laparosocopic Cholecystectomy at [facility] for cholelithiasis. Patient was discharged May. She was doing well until yesterday when she developed right sided abdominal pain , constant, throbbing, non radiating rated 10/10 on pain scale. She also had 7 episodes of non bloody vomiting. Persistence of abdominal pain prompted ED consult. In the ED, BP 154/86, HR 94, RR 18, T 97.8. Exam was unremarkable except for Icteric sclerae, a mildly tender mid epigastric area no rebound. CBC showed mild leukocytosis 15.2>12.9.CMP showed normal BUN/Crea, Bili 3.3, direct bili 2.3. Lipase was 59,000. CT abdomen showed acute pancreatitis. [facility] was contacted regarding transfer back for post op complications and she is accepted however they ar on regional divert so they do not have a bed for her currently. MRCP was suggested which showed no ductal stones, diffuse inflammatory changes. Dr. Lindsay was consulted as well who determined that she will need an ERCP for possible retained stone and this cannot be done here at [facility]. Past Medical History Cardiac Medical History: Reports: Hyperlipidema Denies: Atrial Fibrillation, Congestive Heart Failure, Coronary Artery Disease, Myocardial Infarction, Hypertension, Peripheral Vascular Disease, Heart Murmur Pulmonary Medical History: Reports: None Denies: Asthma, Bronchitis, Chronic Obstructive Pulmonary Disease (COPD), Pneumonia, Sleep Apnea EENT Medical History: Reports: None Neurological Medical History: Reports: None Denies: Seizures Endocrine Medical History: Reports: None Denies: Hyperthyroidism, Hypothyroidism Renal/ Medical History: Reports: None Malignancy Medical History: Reports: None GI Medical History: Denies: Gastroesophageal Reflux Disease Musculoskeltal Medical History: Reports: Arthritis - shoulder Denies: Fibromyalgia Skin Medical History: Reports: None Psychiatric Medical History: Reports: None Denies: Bipolar Disorder, Depression, Post Traumatic Stress Disorder Traumatic Medical History: Reports: None Hematology: Denies: Anemia Infectious Medical History: Reports: None Past Surgical History Past Surgical History: Reports: Cholecystectomy, Hysterectomy Denies: Amputation, Appendectomy, Section, Coronary Artery Bypass Gr aft, Gastric Bypass Surgery, Herniorrhaphy, Mastectomy, Pacemaker, Tonsillectomy, Tubal Ligation Social History Information Source: Patient Lives with: Alone Smoking Status: Never Smoker Hx Recreational Drug Use: No Hx Prescription Drug Abuse: No Family History Family History: Reviewed & Not Pertinent Parental Family History Reviewed: Yes Children Family History Reviewed: Yes Sibling(s) Family History Reviewed.: Yes Medication/Allergy Home Medications: Acetaminophen [Tylenol 325 mg Tablet] 650 mg PO Q4HP PRN 02/17/18 Atorvastatin Calcium [Lipitor 10 mg Tablet] 10 mg PO QHS 02/17/18 Escitalopram Oxalate [Lexapro 10 mg Tablet] 10 mg PO DAILY 02/17/18 Naproxen Sodium [Aleve] 220 mg PO Q8HP PRN 02/17/18 Ondansetron HCl [Zofran 4 mg Tablet] 1 - 2 tab PO Q6HP PRN #20 tablet 02/18/18 Oxycodone HCl/Acetaminophen [Percocet 5-325 mg Tablet] 1 - 2 tab PO Q4H PRN #40 tablet 02/18/18 Allergies/Adverse Reactions: No Known Allergies Allergy (Verified 02/02/18 11:15) Review of Systems Constitutional: ABSENT: chills, fever(s), weakness Ears: ABSENT: hearing changes Nose, Mouth, and Throat: ABSENT: mouth pain, sore throat Cardiovascular: ABSENT: chest pain, dyspnea on exertion, edema, orthropnea, palpitations Gastrointestinal: PRESENT: abdominal pain, nausea, vomiting Integumentary: ABSENT: pruritus Neurological: ABSENT: focal weakness Psychiatric: ABSENT: hallucinations, suicidal ideation Physical Exam Vital Signs: Temp Pulse Resp BP Pulse Ox 98.8 F 85 22 H 163/80 H 96 06/02/20 07:43 06/01/20 23:22 06/02/20 08:01 06/02/20 08:01 06/02/20 08:01 Intake & Output 06/01/20 06/02/20 06/03/20 06:59 06:59 06:59 Intake Total 1000 1000 Balance 1000 1000 Weight 89.811 kg General appearance: PRESENT: no acute distress, cooperative Head exam: PRESENT: atraumatic, normocephalic Eye exam: PRESENT: EOMI, PERRLA, scleral icterus Mouth exam: PRESENT: moist Neck exam: PRESENT: full ROM Respiratory exam: PRESENT: clear to auscultation regine, symmetrical, unlabored Cardiovascular exam: PRESENT: RRR, +S1, +S2 Pulses: PRESENT: +2 pedal pulses bilateral GI/Abdominal exam: PRESENT: hypoactive bowel sounds, soft. ABSENT: Moran's sign, rebound Extremities exam: PRESENT: full ROM Musculoskeletal exam: PRESENT: full ROM Neurological exam: PRESENT: alert, awake, oriented to person, oriented to place, oriented to time, oriented to situation Psychiatric exam: PRESENT: normal mood Skin exam: PRESENT: normal color Results Laboratory Results: 06/02/20 08:26 06/02/20 08:26 06/01/20 06/01/20 06/02/20 23:35 23:35 05:52 WBC 15.2 H RBC 5.90 H Hgb 16.4 H Hct 48.9 H MCV 83 MCH 27.8 MCHC 33.6 RDW 13.9 Plt Count 353 Seg Neutrophils % 77.7 Sodium 139.1 Potassium 4.2 Chloride 102 Carbon Dioxide 29 Anion Gap 8 BUN 14 Creatinine 0.60 Est GFR ( Amer) > 60 Glucose 193 H Calcium 10.2 Total Bilirubin 3.1 H AST 1320 H Alkaline Phosphatase 534 H Total Protein 7.6 Albumin 4.4 Lipase 58361.8 H Urine Color DENISE Urine Appearance CLEAR Urine pH 5.0 Ur Specific Eros 1.057 Urine Protein NEGATIVE Urine Glucose (UA) NEGATIVE Urine Ketones TRACE H Urine Blood NEGATIVE Urine Nitrite NEGATIVE Ur Leukocyte Esterase NEGATIVE Urine WBC (Auto) 2 Urine RBC (Auto) 1 06/02/20 06/02/20 08:26 08:26 WBC 12.9 H RBC 5.21 Hgb 14.7 Hct 44.2 MCV 85 MCH 28.2 MCHC 33.2 RDW 14.2 H Plt Count 263 Seg Neutrophils % Not Reportable Sodium 140.0 Potassium 4.5 Chloride 105 Carbon Dioxide 30 Anion Gap 5 BUN 11 Creatinine 0.53 Est GFR ( Amer) > 60 Glucose 168 H Calcium 9.0 Total Bilirubin 3.3 H AST 846 H Alkaline Phosphatase 463 H Total Protein 6.5 Albumin 3.7 Lipase 9465.9 H Urine Color Urine Appearance Urine pH Ur Specific Eros Urine Protein Urine Glucose (UA) Urine Ketones Urine Blood Urine Nitrite Ur Leukocyte Esterase Urine WBC (Auto) Urine RBC (Auto) Impressions: Abdomen/Pelvis CT 06/02/20 00:35 IMPRESSION: Acute pancreatitis. Abdomen MRI 06/02/20 12:28 IMPRESSION: No ductal stones -defects identified. Diffuse inflammatory changes - fluid around the pancreas. Assessment and Plan - Diagnosis (1) Acute pancreatitis Qualifiers: Pancreatitis type: unspecified pancreatitis type Acute pancreatitis complication: unspecified Qualified Code(s): K85.90 - Acute pancreatitis without necrosis or infection, unspecified Is this a current diagnosis for this admission?: Yes Plan: - s/p lap juan ramon May 28 coming in due to abdominal pain with icteric sclerae - Lipase 59,000 - BUN 11, Crea 0.53 - CT abdomen acute pancreatitis - likely post cholecystectomy complications, retained stoned causing obstructive jaundice - Continue IV fluids LR 150 ml/hr - continue zosyn - zofran for nasuea - dilaudid for pain - keep NPO - strict IO - needs ERCP. Agree with [facility] transfer (2) Transaminitis Is this a current diagnosis for this admission?: Yes Plan: - AST 846, ALT 982 - 2/2 post juan ramon complications, possible retained stone - continue to monitor daily - continue IV fluids (3) Elevated bilirubin Is this a current diagnosis for this admission?: Yes Plan: - direct hyperbilirubinemia most likely obstrcutive jaundice from retained stone - [facility] transfer for ERCP (4) Status post laparoscopic cholecystectomy Is this a current diagnosis for this admission?: Yes Plan: - 2/2 cholelithiasis - Lap juan ramon outpatient on May 28, 2019 (5) HLD (hyperlipidemia) Is this a current diagnosis for this admission?: Yes Plan: - on lipitor will hold - Plan Summary Summary: Agree with [facility] transfer for ERCP. Continue IV fluids, abx adn pain meds. Orders entered. We will follow along with you. Please call for any questions - Time Time Spent with patient: 25-34 minutes Medications reviewed and adjusted accordingly: Yes Anticipated Discharge Disposition: Tertiary Anticipated Discharge Timeframe: within 48 hours
[2020-06-02] MEDS: HYDROMORPHONE HCL INJ/PF 2 MG/ML AMPULE IV PRN ×2 (18:58→23:08)
[2020-06-02] MEDS: RINGERS SOLUTION,LACTATED 1,000 ML IV PRN ×2 (19:06→23:18)
[2020-06-02] MEDS: ONDANSETRON HCL INJ/PF 4 MG/2 ML SDV IV PRN (23:08)
--- NOTE | 2020-06-03 01:12 | ER Document Report ---
Entered by RANDELL FOSS SCRIBE 06/02/20 Acting as scribe for:IRMA VIZCAINO IV, MD Doctor's Note Notes: 06/02/20 23:44 This 69 year old female patient is pending transfer to [facility] for management of post-op complications related to a cholycystectomy. Patient has no complaints at this time other than her bed being uncomfortable. Physical Exam: General: Alert, pleasant, no complaints. HEENT: Normocephalic. Atraumatic. PERRL. Extraocular movements intact. Oropharynx clear. Neck: Supple. Non-tender. Respiratory: No respiratory distress. Clear and equal breath sounds bilaterally. Pulse ox saturation between 96-98 on room air. Cardiovascular: Regular rate and rhythm. Abdominal: Non-tender. No distension. Normal Bowel Sounds. Back: No gross abnormalities. Extremities: Moves all four extremities. Upper extremities: Normal inspection. Normal ROM. Lower extremities: Normal inspection. No edema. Normal ROM. Neurological: Normal cognition. AAOx4. Normal speech. Psychological: Normal affect. Normal Mood. Skin: Warm. Dry. Normal color. I personally performed the services described in the documentation, reviewed and edited the documentation which was dictated to the scribe in my presence, and it accurately records my words and actions.
[2020-06-03 02:49] LABS: HEMATOCRIT 39.1 % (36.0-47.0); MEAN CORPUSCULAR HEMOGLOBIN 28.6 pg (27.0-33.4); MEAN CORPUSCULAR HGB CONC 33.3 g/dL (32.0-36.0); MEAN CORPUSCULAR VOLUME 86 fl (80-97); PLATELET COUNT 227 10^3/uL (150-450); RED BLOOD COUNT 4.55 10^6/uL (3.72-5.28); RED CELL DISTRIBUTION WIDTH 14.2 % (11.5-14.0); WHITE BLOOD COUNT 18.6 10^3/uL (4.0-10.5)
[2020-06-03 03:04] LABS: ALBUMIN 3.2 g/dL (3.5-5.0); ALKALINE PHOSPHATASE 365 U/L (38-126); ANION GAP 5 (5-19); ASPARTATE AMINO TRANSFERASE 262 U/L (14-36); BILIRUBIN,DIRECT 0.7 mg/dL (0.0-0.4); BILIRUBIN,TOTAL 1.7 mg/dL (0.2-1.3); BLOOD UREA NITROGEN 12 mg/dL (7-20); CALCIUM 8.8 mg/dL (8.4-10.2); CARBON DIOXIDE 31 mmol/L (22-30); CHLORIDE 103 mmol/L (98-107); GLUCOSE 114 mg/dL (75-110); POTASSIUM 4.1 mmol/L (3.6-5.0); TOTAL PROTEIN 5.8 g/dL (6.3-8.2)
[2020-06-03 03:11] LABS: ABSOLUTE LYMPHOCYTES# (MANUAL) 1.5 10^3/uL (0.5-4.7); ABSOLUTE MONOCYTES # (MANUAL) 0.9 10^3/uL (0.1-1.4); BASOPHILS % (MANUAL) 0 % (0-2); EOSINOPHILS % (MANUAL) 0 % (0-6); LYMPHOCYTES % (MANUAL) 8 % (13-45); MONOCYTES % (MANUAL) 5 % (3-13); SEGMENTED NEUTROPHILS % (MAN) 87 % (42-78); TOTAL CELLS COUNTED 100
[2020-06-03 03:12] LABS: PLATELET COMMENT ADEQUATE
[2020-06-03 03:15] LABS: ANISOCYTOSIS SLIGHT
[2020-06-03 03:19] LABS: OVALOCYTES SLIGHT
[2020-06-03] MEDS: HYDROMORPHONE HCL INJ/PF 2 MG/ML AMPULE IV PRN ×2 (03:55→10:09)
[2020-06-03] MEDS: PIPERACILLIN/TAZOBACTAM 3.375 GM VIAL IV SCH ×2 (03:55→10:09)
[2020-06-03] MEDS: ONDANSETRON HCL INJ/PF 4 MG/2 ML SDV IV PRN ×2 (03:56→10:10)
[2020-06-03 06:33] LABS: HEMOGLOBIN 12.7 g/dL (12.0-15.5); MEAN CORPUSCULAR HEMOGLOBIN 28.6 pg (27.0-33.4); MEAN CORPUSCULAR HGB CONC 33.4 g/dL (32.0-36.0); MEAN CORPUSCULAR VOLUME 86 fl (80-97); PLATELET COUNT 213 10^3/uL (150-450); RED BLOOD COUNT 4.45 10^6/uL (3.72-5.28); RED CELL DISTRIBUTION WIDTH 14.2 % (11.5-14.0); WHITE BLOOD COUNT 17.4 10^3/uL (4.0-10.5)
[2020-06-03 06:52] LABS: ALBUMIN 3.1 g/dL (3.5-5.0); ALKALINE PHOSPHATASE 339 U/L (38-126); ANION GAP 5 (5-19); ASPARTATE AMINO TRANSFERASE 195 U/L (14-36); BILIRUBIN,DIRECT 0.6 mg/dL (0.0-0.4); BILIRUBIN,TOTAL 1.6 mg/dL (0.2-1.3); BLOOD UREA NITROGEN 11 mg/dL (7-20); CALCIUM 8.8 mg/dL (8.4-10.2); CARBON DIOXIDE 30 mmol/L (22-30); CHLORIDE 103 mmol/L (98-107); GLUCOSE 111 mg/dL (75-110); TOTAL PROTEIN 5.6 g/dL (6.3-8.2)
[2020-06-03 07:08] LABS: ABSOLUTE LYMPHOCYTES# (MANUAL) 1.4 10^3/uL (0.5-4.7); ABSOLUTE MONOCYTES # (MANUAL) 1.4 10^3/uL (0.1-1.4); ANISOCYTOSIS SLIGHT; BASOPHILS % (MANUAL) 0 % (0-2); EOSINOPHILS % (MANUAL) 0 % (0-6); LYMPHOCYTES % (MANUAL) 8 % (13-45); MONOCYTES % (MANUAL) 8 % (3-13); PLATELET COMMENT ADEQUATE; SEGMENTED NEUTROPHILS % (MAN) 84 % (42-78); TOTAL CELLS COUNTED 100
[2020-06-03 07:09] LABS: SCHISTOCYTES SLIGHT
[2020-06-03 08:46] LABS: INTERNATIONAL RATION (INR) 1.01; PROTHROMBIN TIME 13.5 SEC (11.4-15.4)
[2020-06-03 08:47] LABS: PARTIAL THROMBOPLASTIN TIME 21.7 SEC (23.5-35.8)
[2020-06-03] MEDS ORDERED: MAG HYDROX/AL HYDROX/SIMETH SUSP 30 ML UDCUP PO PRN (10:03)
[2020-06-03] MEDS ORDERED: ACETAMINOPHEN 325 MG TABLET PO PRN (10:03)
--- NOTE | 2020-06-03 10:24 | PDOC H&P ---
History of Present Illness Admission Date/PCP: CHIO MCINTYRE PA-C Patient complains of: Abdominal pain History of Present Illness: SONA DE LA PAZ is a 69 year old female with history of wheeze since laparoscopic cholecystectomy at [facility] 6 days ago, hyperlipidemia, who presented to the ER 2 days ago with complaints of abdominal pain. Patient was also experiencing nausea and vomiting. The pain was mostly epigastric and periumbilical but with some radiation to her chest region. She denies any history of heartburn or reflux. She denies any fever or chills. Had some episodes of nonbloody vomiting. She has been diagnosed with acute pancreatitis and has been receiving treatment while in the ER awaiting transfer to [facility]. She also denies using more than 2 to 3 tablets of Tylenol daily. Notably she had profound transaminitis, hyperbilirubinemia and lipase of over 50,000 upon initial presentation. Patient has been accepted into [facility] but awaiting bed. Plan was for possible ERCP. However, after multiple discussions between ER and hospital administration, decision was taken to admit patient here. Patient currently states her pain is improved but still present. She is currently n.p.o. Her nausea and vomiting have resolved. She denies prior history of pancreatitis. She drinks alcohol only once in a while. Past Medical History Cardiac Medical History: Reports: Hyperlipidema Denies: Atrial Fibrillation, Congestive Heart Failure, Coronary Artery Disease, Myocardial Infarction, Hypertension, Peripheral Vascular Disease, Heart Murmur Pulmonary Medical History: Reports: None Denies: Asthma, Bronchitis, Chronic Obstructive Pulmonary Disease (COPD), Pneumonia, Sleep Apnea EENT Medical History: Reports: None Neurological Medical History: Reports: None Denies: Seizures Endocrine Medical History: Reports: None Denies: Hyperthyroidism, Hypothyroidism Renal/ Medical History: Reports: None Malignancy Medical History: Reports: None GI Medical History: Denies: Gastroesophageal Reflux Disease Musculoskeltal Medical History: Reports: Arthritis - shoulder Denies: Fibromyalgia Skin Medical History: Reports: None Psychiatric Medical History: Reports: None Denies: Bipolar Disorder, Depression, Post Traumatic Stress Disorder Traumatic Medical History: Reports: None Hematology: Denies: Anemia Infectious Medical History: Reports: None Past Surgical History Past Surgical History: Reports: Cholecystectomy, Hysterectomy Denies: Amputation, Appendectomy, Section, Coronary Artery Bypass Graft, Gastric Bypass Surgery, Herniorrhaphy, Mastectomy, Pacemaker, Tonsillectomy, Tubal Ligation Social History Lives with: Alone Smoking Status: Never Smoker Frequency of Alcohol Use: Occasional Hx Recreational Drug Use: No Hx Prescription Drug Abuse: No - Advance Directive Resuscitation Status: Full Code Family History Family History: Malignancy - Breast cancer in her grandmother, Other - Pancreatitis in mother Parental Family History Reviewed: Yes Children Family History Reviewed: Yes Sibling(s) Family History Reviewed.: Yes Medication/Allergy Home Medications: Acetaminophen [Tylenol 325 mg Tablet] 650 mg PO Q4HP PRN 02/17/18 Atorvastatin Calcium [Lipitor 10 mg Tablet] 10 mg PO QHS 02/17/18 Escitalopram Oxalate [Lexapro 10 mg Tablet] 10 mg PO DAILY 02/17/18 Naproxen Sodium [Aleve] 220 mg PO Q8HP PRN 02/17/18 Ondansetron HCl [Zofran 4 mg Tablet] 1 - 2 tab PO Q6HP PRN #20 tablet 02/18/18 Oxycodone HCl/Acetaminophen [Percocet 5-325 mg Tablet] 1 - 2 tab PO Q4H PRN #40 tablet 02/18/18 Allergies/Adverse Reactions: No Known Allergies Allergy (Verified 02/02/18 11:15) Review of Systems Constitutional: ABSENT: chills, fever(s) Eyes: ABSENT: visual disturbances Ears: ABSENT: hearing changes Cardiovascular: ABSENT: dyspnea on exertion Respiratory: ABSENT: cough, dyspnea Gastrointestinal: PRESENT: abdominal pain, nausea, vomiting. ABSENT: coffee ground emesis, diarrhea, hematemesis, hematochezia, melena Genitourinary: ABSENT: dysuria Musculoskeletal: ABSENT: back pain Integumentary: ABSENT: diaphoresis Neurological: ABSENT: dizziness Hematologic/Lymphatic: ABSENT: easy bleeding Allergic/Immunologic: ABSENT: seasonal rhinorrhea Physical Exam Vital Signs: Temp Pulse Resp BP Pulse Ox 98 F 87 20 147/74 H 98 06/03/20 01:24 06/02/20 15:00 06/03/20 08:01 06/03/20 08:01 06/03/20 08:01 Intake & Output 06/02/20 06/03/20 06/04/20 06:59 06:59 06:59 Intake Total 1000 4000 Balance 1000 4000 Weight 89.811 kg General appearance: PRESENT: no acute distress, cooperative Neck exam: ABSENT: JVD Respiratory exam: PRESENT: clear to auscultation regine, symmetrical, unlabored. ABSENT: tachypnea, wheezes Cardiovascular exam: PRESENT: +S1, +S2, tachycardia. ABSENT: irregular rhythm GI/Abdominal exam: PRESENT: soft, tenderness. ABSENT: distended, firm, guarding, rebound, rigid Extremities exam: ABSENT: calf tenderness, pedal edema Neurological exam: PRESENT: alert, awake, oriented to person, oriented to place, oriented to time, oriented to situation Psychiatric exam: ABSENT: agitated, anxious Focused psych exam: ABSENT: internal stimuli Skin exam: PRESENT: other - Incision scars in abdomen healing nicely with no surrounding erythema Results Laboratory Results: 06/03/20 06:09 06/03/20 06:09 06/03/20 06/03/20 06/03/20 02:27 02:27 06:09 WBC 18.6 H 17.4 H RBC 4.55 4.45 Hgb 13.0 12.7 Hct 39.1 38.0 MCV 86 86 MCH 28.6 28.6 MCHC 33.3 33.4 RDW 14.2 H 14.2 H Plt Count 227 213 Seg Neutrophils % Not Reportable Not Reportable Sodium 138.6 Potassium 4.1 Chloride 103 Carbon Dioxide 31 H Anion Gap 5 BUN 12 Creatinine 0.58 Est GFR ( Amer) > 60 Glucose 114 H Calcium 8.8 Magnesium 1.8 Total Bilirubin 1.7 H AST 262 H Alkaline Phosphatase 365 H Total Protein 5.8 L Albumin 3.2 L Lipase 2508.1 H 06/03/20 06/03/20 06:09 06:09 WBC RBC Hgb Hct MCV MCH MCHC RDW Plt Count Seg Neutrophils % Sodium 138.2 Potassium 4.0 Chloride 103 Carbon Dioxide 30 Anion Gap 5 BUN 11 Creatinine 0.52 Est GFR ( Amer) > 60 Glucose 111 H Calcium 8.8 Magnesium Total Bilirubin 1.6 H AST 195 H Alkaline Phosphatase 339 H Total Protein 5.6 L Albumin 3.1 L Lipase 2019.5 H Impressions: Abdomen/Pelvis CT 06/02/20 00:35 IMPRESSION: Acute pancreatitis. Abdomen MRI 06/02/20 12:28 IMPRESSION: No ductal stones -defects identified. Diffuse inflammatory changes - fluid around the pancreas. Assessment and Plan - Diagnosis (1) Acute pancreatitis Qualifiers: Pancreatitis type: unspecified pancreatitis type Acute pancreatitis complication: no infection or necrosis Qualified Code(s): K85.90 - Acute pancreatitis without necrosis or infection, unspecified Is this a current diagnosis for this admission?: Yes Plan: - s/p lap juan ramon May 28 with lipase of 59,[address] showed evidence of acute pancreatitis. MRCP shows peripancreatic fluid, acute pancreatitis but no evidence of necrosis/infection. Also normal common bile duct. Continue lactated Ringer's infusion. Currently n.p.o. Monitor I's and O's Check triglyceride Given patient's clinical presentation, it is likely that patient may have had biliary obstruction from retained stone/sludge that precipitated this acute pancreatitis. Labs are now improving. We will coordinate with Dr. Bay here regarding need for ERCP. (2) Transaminitis Is this a current diagnosis for this admission?: Yes Plan: 2/2 post juan ramon complications, possible retained stone. Negative MRCP does not rule this out. However, labs are currently improving. Checked coags, cbc and it appears liver synthetic function is adequate at this time. (3) Leukocytosis Qualifiers: Leukocytosis type: unspecified Qualified Code(s): D72.829 - Elevated white blood cell count, unspecified Is this a current diagnosis for this admission?: Yes Plan: I suspect that this is likely inflammatory secondary to patient's acute pancreatitis. Has been on antibiotics IV. Notably no evidence of intra- abdominal or peripancreatic infection noted on abdominal CT and MRCP. Check blood cultures and if negative at 1 day, will discontinue IV antibiotics. (4) Status post laparoscopic cholecystectomy Is this a current diagnosis for this admission?: Yes Plan: - 2/2 cholelithiasis - Lap juan ramon outpatient at [facility] on May 28, 2019 - Time Time Spent with patient: 35 or more minutes Anticipated Discharge Disposition: Home, Self Care Anticipated Discharge Timeframe: within 72 hours
[2020-06-03] MEDS ORDERED: DEXAMETHASONE SOD PHOSPHATE INJ 4 MG/1 ML VIAL ONE (11:42)
[2020-06-03] MEDS ORDERED: LIDOCAINE 2% INJ-PF (20 MG/ML) 2 ML AMPUL ONE (11:42)
[2020-06-03] MEDS ORDERED: SUCCINYLCHOLINE CHLORIDE INJ 200 MG/10 ML VIAL ONE (11:42)
[2020-06-03] MEDS ORDERED: ONDANSETRON HCL INJ/PF 4 MG/2 ML SDV ONE (11:42)
[2020-06-03] MEDS ORDERED: PHENYLEPHRINE HCL INJ/PF 10 MG/1 ML SDV ONE (11:42)
[2020-06-03] MEDS: RINGERS SOLUTION,LACTATED 1,000 ML IV PRN (13:54)
[2020-06-03] MEDS ORDERED: EPINEPHRINE INJ 1 MG/10 ML DISP.SYRIN ONE (16:42)
[2020-06-03] MEDS ORDERED: GLUCAGON,HUMAN RECOMB 1 MG INJ ONE (16:42)
[2020-06-03] MEDS ORDERED: PROPOFOL INJ 200 MG/20 ML VIAL IV ONE (17:59)
[2020-06-03] MEDS ORDERED: EPHEDRINE SULFATE INJ 50 MG/1 ML AMPULE ONE (17:59)
[2020-06-03] MEDS ORDERED: FENTANYL CITRATE INJ/PF 100 MCG/2 ML AMPUL ONE (17:59)
[2020-06-03] MEDS ORDERED: MIDAZOLAM 2 MG/2 ML INJ ONE (17:59)
--- NOTE | 2020-06-03 19:31 | PDOC CONSULTATION ---
Consultation Consult Date: 06/03/20 Provider Consulted: BRAYDON CABA History of Present Illness Admission Date/PCP: 06/03/20 11:16 CHIO MCINTYRE PA-C History of Present Illness: SONA DE LA PAZ is a 69 year old female who presented to the emergency room 2 days ago with abdominal pain, nausea, vomiting. Consultation was requested for ERCP. She had a laparoscopic cholecystectomy last week at [facility] and she did okay for the first day at home. On admission she was diagnosed with gallstone pancreatitis with jaundice. Her bilirubin was 3 with elevated transaminases and a lipase of 50,000. Her LFTs has been gradually improving while waiting in the emergency room for transfer to [facility]. Her lipase today was 2500. She denies significant abdominal pain currently but still has some discomfort in the epigastrium. She has had no fever. Her imaging is consistent with pancreatitis but no dilated ducts. Past Medical History Cardiac Medical History: Reports: Hyperlipidema Denies: Atrial Fibrillation, Congestive Heart Failure, Coronary Artery Disease, Myocardial Infarction, Hypertension, Peripheral Vascular Disease, Heart Murmur Pulmonary Medical History: Reports: None Denies: Asthma, Bronchitis, Chronic Obstructive Pulmonary Disease (COPD), Pneumonia, Sleep Apnea EENT Medical History: Reports: None Neurological Medical History: Reports: None Denies: Seizures Endocrine Medical History: Reports: None Denies: Hyperthyroidism, Hypothyroidism Renal/ Medical History: Reports: None Malignancy Medical History: Reports: None GI Medical History: Denies: Gastroesophageal Reflux Disease Musculoskeltal Medical History: Reports: Arthritis - shoulder Denies: Fibromyalgia Skin Medical History: Reports: None Psychiatric Medical History: Reports: None Denies: Bipolar Disorder, Depression, Post Traumatic Stress Disorder Traumatic Medical History: Reports: None Hematology: Denies: Anemia Infectious Medical History: Reports: None Past Surgical History Past Surgical History: Reports: Cholecystectomy, Hysterectomy Denies: Amputation, Appendectomy, Section, Coronary Artery Bypass Graft, Gastric Bypass Surgery, Herniorrhaphy, Mastectomy, Pacemaker, Tonsillectomy, Tubal Ligation Social History Lives with: Alone Smoking Status: Never Smoker Frequency of Alcohol Use: Occasional Hx Recreational Drug Use: No Drugs: None Hx Prescription Drug Abuse: No - Advance Directive Resuscitation Status: Full Code Family History Family History: Malignancy - Breast cancer in her grandmother, Other - Pancreatitis in mother Parental Family History Reviewed: No Children Family History Reviewed: NA Sibling(s) Family History Reviewed.: NA Medication/Allergy Home Medications: Acetaminophen [Tylenol 325 mg Tablet] 650 mg PO Q4HP PRN 02/17/18 Atorvastatin Calcium [Lipitor 10 mg Tablet] 10 mg PO QHS 02/17/18 Escitalopram Oxalate [Lexapro 10 mg Tablet] 10 mg PO DAILY 02/17/18 Naproxen Sodium [Aleve] 220 mg PO Q8HP PRN 02/17/18 Ondansetron HCl [Zofran 4 mg Tablet] 1 - 2 tab PO Q6HP PRN #20 tablet 02/18/18 Oxycodone HCl/Acetaminophen [Percocet 5-325 mg Tablet] 1 - 2 tab PO Q4H PRN #40 tablet 02/18/18 Allergies/Adverse Reactions: No Known Allergies Allergy (Verified 02/02/18 11:15) Review of Systems All systems: reviewed and no additional remarkable complaints except as stated Physical Exam Vital Signs: Temp Pulse Resp BP Pulse Ox 98.4 F 91 18 155/59 H 90 L 06/03/20 16:39 06/03/20 16:39 06/03/20 16:39 06/03/20 16:39 06/03/20 16:39 Intake & Output 06/02/20 06/03/20 06/04/20 06:59 06:59 06:59 Intake Total 1000 4000 Output Total 650 Balance 1000 4000 -650 Weight 89.811 kg 87 kg Exam: General: Patient is alert and looks well. HEENT: There is no pallor or jaundice. PERRLA. Oropharynx normal Respiratory: No chest deformity. No respiratory distress. Chest wall palpitation was unremarkable. Breath sounds were normal Cardiovascular: Heart sounds 1 and 2 normal with no murmurs. Abdominal: Not distended. Soft with some tenderness in the epigastrium. Liver and spleen not palpable. No ascites demonstrated. Bowel sounds active. Rectal examination was deferred. Extremities: No edema Neurological: Alert and oriented x4. Grossly nonfocal. Normal speech Skin: No significant rash Psychological: Normal affect Results Laboratory Results: 06/03/20 06:09 06/03/20 06:09 06/03/20 06/03/20 06/03/20 02:27 02:27 06:09 WBC 18.6 H 17.4 H RBC 4.55 4.45 Hgb 13.0 12.7 Hct 39.1 38.0 MCV 86 86 MCH 28.6 28.6 MCHC 33.3 33.4 RDW 14.2 H 14.2 H Plt Count 227 213 Seg Neutrophils % Not Reportable Not Reportable Sodium 138.6 Potassium 4.1 Chloride 103 Carbon Dioxide 31 H Anion Gap 5 BUN 12 Creatinine 0.58 Est GFR ( Amer) > 60 Glucose 114 H Calcium 8.8 Magnesium 1.8 Total Bilirubin 1.7 H AST 262 H Alkaline Phosphatase 365 H Total Protein 5.8 L Albumin 3.2 L Triglycerides Lipase 2508.1 H 06/03/20 06/03/20 06/03/20 06:09 06:09 06:09 WBC RBC Hgb Hct MCV MCH MCHC RDW Plt Count Seg Neutrophils % Sodium 138.2 Potassium 4.0 Chloride 103 Carbon Dioxide 30 Anion Gap 5 BUN 11 Creatinine 0.52 Est GFR ( Amer) > 60 Glucose 111 H Calcium 8.8 Magnesium Total Bilirubin 1.6 H AST 195 H Alkaline Phosphatase 339 H Total Protein 5.6 L Albumin 3.1 L Triglycerides 84 Lipase 2019.5 H Impressions: Abdomen/Pelvis CT 06/02/20 00:35 IMPRESSION: Acute pancreatitis. Abdomen MRI 06/02/20 12:28 IMPRESSION: No ductal stones -defects identified. Diffuse inflammatory changes - fluid around the pancreas. Assessment & Plan - Diagnosis (1) Elevated LFTs Is this a current diagnosis for this admission?: Yes Plan: Her presentation with acute pancreatitis and jaundice post cholecystectomy is suggestive of retained common bile duct stone. She does not have significant dilation of her biliary tree on CAT scan and MRI. The need for an ERCP including the risk and benefit was explained to the patient and she is in agreement. (2) Gallstone pancreatitis Is this a current diagnosis for this admission?: Yes (3) Acute pancreatitis Qualifiers: Pancreatitis type: unspecified pancreatitis type Acute pancreatitis complication: no infection or necrosis Qualified Code(s): K85.90 - Acute pancreatitis without necrosis or infection, unspecified Is this a current diagnosis for this admission?: Yes
--- NOTE | 2020-06-03 19:34 | Operative Report ---
Operative Report DATE OF SURGERY: 06/03/20 Operative Report: Pre-op diagnosis: Gallstone pancreatitis and jaundice Post-op diagnosis: 1. Common bile duct sludge 2. Periampullary diverticulum Surgery: ERCP with sphincterotomy and balloon sludge extraction Medications: As per anesthesia Tissue removed: None Procedure: After informed consent obtained from patient, patient was placed under general anesthesia. The ERCP endoscope was then inserted into the esophagus blindly and advanced into the stomach. The duodenum was entered and the ampulla was identified. Using the triple-lumen sphincterotomy catheter the common bile duct was freely cannulated. A cholangiogram was obtained . A good sized sphincterotomy was then performed using the endocut mode. The catheter was removed over the guidewire before a 9-12 mm balloon catheter was inserted. The balloon was inflated to 12 mm in the proximal common bile duct and pulled down the duct. The duct was swept two more times. A balloon occlusion cholangiogram was normal. Patient tolerated procedure well. Findings Common bile duct: A small diverticulum was noted around the ampulla. Small amount of sludge was extracted with the 12 mm balloon catheter. There was no evidence for biliary leakage. Intrahepatic ducts: Normal Pancreatic duct: Partial pancreatogram was unremarkable Plan: Follow-up LFTs. OPERATION: .
[2020-06-03] MEDS: PIPERACILLIN SODIUM/TAZOBACTAM 3.375 GM in NORMAL SALINE 100 ML IV SCH (20:23)
[2020-06-03] MEDS: FAMOTIDINE INJ/PF 20 MG/2 ML SDV IV SCH (22:51)
[2020-06-04] MEDS: PIPERACILLIN SODIUM/TAZOBACTAM 3.375 GM in NORMAL SALINE 100 ML IV SCH ×4 (01:16→18:28)
[2020-06-04 05:50] LABS: HEMOGLOBIN 11.9 g/dL (12.0-15.5); MEAN CORPUSCULAR HEMOGLOBIN 28.9 pg (27.0-33.4); MEAN CORPUSCULAR HGB CONC 33.9 g/dL (32.0-36.0); MEAN CORPUSCULAR VOLUME 85 fl (80-97); PLATELET COUNT 197 10^3/uL (150-450); RED BLOOD COUNT 4.11 10^6/uL (3.72-5.28); RED CELL DISTRIBUTION WIDTH 13.8 % (11.5-14.0); WHITE BLOOD COUNT 17.3 10^3/uL (4.0-10.5)
[2020-06-04 06:11] LABS: ALKALINE PHOSPHATASE 286 U/L (38-126); ANION GAP 8 (5-19); ASPARTATE AMINO TRANSFERASE 67 U/L (14-36); BILIRUBIN,DIRECT 0.4 mg/dL (0.0-0.4); BLOOD UREA NITROGEN 12 mg/dL (7-20); CALCIUM 8.6 mg/dL (8.4-10.2); CARBON DIOXIDE 27 mmol/L (22-30); CHLORIDE 102 mmol/L (98-107); GLUCOSE 122 mg/dL (75-110); PHOSPHORUS 3.1 mg/dL (2.5-4.5); POTASSIUM 3.9 mmol/L (3.6-5.0); TOTAL PROTEIN 5.6 g/dL (6.3-8.2)
[2020-06-04] MEDS: RINGERS SOLUTION,LACTATED 1,000 ML IV PRN ×2 (06:13→18:28)
[2020-06-04 06:19] LABS: ABSOLUTE LYMPHOCYTES# (MANUAL) 0.5 10^3/uL (0.5-4.7); ABSOLUTE MONOCYTES # (MANUAL) 0.5 10^3/uL (0.1-1.4); BASOPHILS % (MANUAL) 0 % (0-2); EOSINOPHILS % (MANUAL) 0 % (0-6); LYMPHOCYTES % (MANUAL) 3 % (13-45); MONOCYTES % (MANUAL) 3 % (3-13); PLATELET COMMENT ADEQUATE; RBC MORPHOLOGY COMMENT NORMO-CYTIC/CHROMIC; SEGMENTED NEUTROPHILS % (MAN) 94 % (42-78); TOTAL CELLS COUNTED 100
--- NOTE | 2020-06-04 08:36 | RADIOLOGY REPORT (SQ) ---
EXAM DESCRIPTION: ENDO CATH/BILIARY DUCT; NO CHG FLUORO IMAGES COMPLETED DATE/TIME: 06/03/2020 7:39 pm REASON FOR STUDY: ERCP COMPARISON: None. FLUOROSCOPY TIME: 2.2 minutes. 7 images saved to PACS. TECHNIQUE: Intra-operative images acquired during surgical procedure to evaluate progress. NUMBER OF IMAGES: 7 images. LIMITATIONS: None. FINDINGS: Images acquired during ERCP. IMPRESSION: IMAGE(S) OBTAINED DURING PROCEDURE. COMMENT: Quality ID [id number]: Final reports for procedures using fluoroscopy that document radiation exp osure indices, or exposure time and number of fluorographic images (if radiation exposure indices are not available) Please consult full operative report of the attending physician for description of the procedure. TECHNICAL DOCUMENTATION: JOB ID: [id number] [employer]- All Rights Reserved Reading location - IP/workstation name: [email or web address]
--- NOTE | 2020-06-04 08:36 | RADIOLOGY REPORT (SQ) ---
EXAM DESCRIPTION: ENDO CATH/BILIARY DUCT; NO CHG FLUORO IMAGES COMPLETED DATE/TIME: 06/03/2020 7:39 pm REASON FOR STUDY: ERCP COMPARISON: None. FLUOROSCOPY TIME: 2.2 minutes. 7 images saved to PACS. TECHNIQUE: Intra-operative images acquired during surgical procedure to evaluate progress. NUMBER OF IMAGES: 7 images. LIMITATIONS: None. FINDINGS: Images acquired during ERCP. IMPRESSION: IMAGE(S) OBTAINED DURING PROCEDURE. COMMENT: Quality ID [id number]: Final reports for procedures using fluoroscopy that document radiation exp osure indices, or exposure time and number of fluorographic images (if radiation exposure indices are not available) Please consult full operative report of the attending physician for description of the procedure. TECHNICAL DOCUMENTATION: JOB ID: [id number] 2010 [employer]- All Rights Reserved Reading location - IP/workstation name: [email or web address]
[2020-06-04] MEDS: FAMOTIDINE INJ/PF 20 MG/2 ML SDV IV SCH ×2 (09:04→21:06)
[2020-06-04] MEDS: ENOXAPARIN SODIUM INJ 40 MG/0.4 ML DISP.SYRIN SUBCUT SCH (09:04)
--- OUTSIDE RECORDS SUMMARY | 2020-06-04 10:39 | XMS REPORT ---
:1950 Author Organization [facility] [place] [facility] [place] [address] [place] [id number] Care Team Providers Name Role Phone Libra Santoyo Primary Care Physician Unavailable MD Kierra Mcdonald Attending Clinician Unavailable MD Kierra Mcdonald Attending Clinician Unavailable DO Libra Santoyo Attending Clinician Unavailable DO Libra Santoyo Attending Clinician Unavailable Mu Unavailable Unavailable 1 Unavailable Unavailable Kamille Wilkins Unavailable Unavailable Dale SAUCEDA L Unavailable Karel Rouse M.A. Unavailable Unavailable Allergies, Adverse Reactions, Alerts This patient has no known allergies or adverse reactions. Medications Ordered Filled Start Stop Current Ordering Indication Dosage Frequency Signature Comments Components Medication Medication Date Date Medication? Clinician (SIG) Name Name Ondansetron 2017-05 No Ondansetro Me dicatio HCl 4 MG 06-07 n HCl 4 MG n take n Oral Tablet 09:44: Oral as - 47 Tablet - needed. Historical Historical Medication Medication as needed Active Comments: Medication taken as needed. Oxycodone-A 2017-05 No Oxycodone- Me dicatio cetaminophe - Acetaminop n t aken n 5-325 MG 09:44: hen 5-325 as Oral Tablet 47 MG Oral needed . - Tablet - Historical Historical Medication Medication as needed Active Comments: Medication taken as needed. ALEVE, Yes 0 ALEVE, Medicatio 220MG (Oral 11-08 220MG n taken Tablet) - 09:29: (Oral as Historical 53 Tablet) - neede d. Medication Historical Medication (2) as needed Active Comments: Medication taken as needed. Vitamin D2 Yes 1 QD Vitamin D2 2000 UNIT 11-08 2000 UNIT Oral Tablet 09:29: Oral - 53 Tablet - Historical Historical Medication Medication 1 daily Active Lexapro 10 Yes Kevin L 1Tablet Lexapro 10 MG Oral 6- Dale SAUCEDA MG Oral Tablet 00:00: Tablet 1 00 (one) Tablet q day for 90 days Quantity: 90 Refills: 1 Ordered : 18 Kevin Hunter MD Started 8Active Lipitor 10 2017-0 Yes Kevin Ahuja 1Tablet Lipitor 10 MG Oral 6- Dale SAUCEDA MG Oral Tablet 00:00: Tablet 1 00 (one) Tablet q day for 90 days Quantity: 90 Refills: 1 Ordered : 18 Kevin Hunter MD Started 8Active Drisdol Yes Kevin Ahuja 1Capsul Drisdol [id number] UNIT 07-01 Dale cutler [id number] UNIT Oral 00:00: Oral Capsule 00 Capsule 1 (one) Capsule q week for 30 days Quantity: 4 Refills: 6 Ordered :01-Jul-19 17 Kevin Hunter MD Started 7Active ALPRAZolam 2015-05 2016- No 0 ALPRAZolam Med icatio 0.25 MG 05-20 0.25 MG n taken Oral Tablet 09:13: 00:00 Oral as - 00 :00 Tablet - needed. Historical Historical Medication Medication (1) as needed Ended 6Discontin ued Comments: Medication taken as needed. 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 Percocet 2010- Yes 11 1 tab(s), 5/325 oral 3-01 PO, q4hr, tablet 10:15: PRN, 15 34 tab(s), 0, 0 Cipro 250 2010- No 250mg 250 mg, 1 mg oral 3-05 12-11 tab(s), tablet 10:15: 10:15 PO, q12hr, 02 :02 20 tab(s), 0, 0 Vitamin D2 Yes 75690[i 50,000 50,000 intl 2-18 U] Internatio units oral 11:00: nal_Unit(s capsule 34 ), 1 cap(s), qWeek Lipitor 10 Yes 10mg 10 mg, 1 mg oral 2-18 tab(s), tablet 11:00: Daily 07 PREMARIN, 2008- No Carolann Guzman 1Tablet PREMARIN, 0.3MG (Oral 08-24 Kaminski 0.3MG Tablet) 00:00: 00:00 (Oral 00 :00 Tablet) 1 Tablet qd for 30 days Quantity: 30 Refills: 6 Ordered : 9 Carolann Kaminski Started 9 Ended 15-Feb-2009 Inactive PREMARIN, 2008- No Carolann Guzman 0Cream PREMARIN, 0.625MG/GM 08-24 Kaminski 0.625MG/GM (Vaginal 00:00: 00:00 (Vaginal Cream) 00 :00 Cream) 1/2 matt Cream 2 x week for 30 days Quantity: 1 Refills: 6 Ordered : 9 Carolann Kaminski Started 9 Ended 15-Feb-2009 Inactive PREMARIN, 2006- No Kevin Ahuja PREMARIN, 0.9MG (Oral 08-06 Dale SAUCEDA 0.9MG Tablet) 16:25: 00:00 (Oral 39 :00 Tablet) QD for 0 days Quantity: 0 Refills: 0 Ordered :07-Aug-19 Kevin Hunter MD Ended 7Inactive PREMARIN, 2006- No Kevin L PREMARIN, 0.45MG 07-18 Dale SAUCEDA 0.45MG (Oral 00:00: 00:00 (Oral Tablet) 00 :00 Tablet) for 0 days Quantity: 0 Refills: 0 Ordered :19-Jul-19 Kevin Hunter MD Started 5 Ended 7Inactive Percocet 5 No 1 Q5H Percocet 5 mg-325 mg mg-325 mg tablet Take tablet 1 tablet Take 1 every 4-6 tablet hours by every 4-6 oral route. hours by oral route. Aurora 5 No 1 Q6H Aurora 5 mg-325 mg mg-325 mg tablet Take tablet 1 tablet Take 1 every 6 tablet hours by every 6 oral route. hours by oral route. atorvastati No atorvastat n 10 mg in 10 mg tablet tablet Colace 100 No Colace 100 mg capsule mg capsule take twice take twice daily as daily as needed needed cyclobenzap No cyclobenza rine 10 mg susan 10 tablet Take mg tablet 1 tablet 3 Take 1 times a day tablet 3 by oral times a route. day by oral route. escitalopra No escitalopr m 10 mg am 10 mg tablet tablet hydrocodone No hydrocodon 5 e 5 mg-acetamin mg-acetami ophen 325 nophen 325 mg tablet mg tablet Take 1 Take 1 tablet tablet every 6 every 6 hours by hours by oral route. oral route. Xarelto 10 No 1 Q1D Xarelto 10 mg tablet mg tablet Take 1 Take 1 tablet tablet every day every day by oral by oral route. route. 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 (finding) rmed)2 00:00: and pa in 00 medicati o n for 24 hours Deficient Deficient Problem active 2011-0 r/t to knowledge knowledge(C 2-28 po stop (finding) onfirmed)3 00:00: car e 00 [NEED FOR] [NEED FOR] Problem Active Mu PROPHYLACTI PROPHYLACTI Katelynn C C POSTMENOPAU POSTMENOPAU LISBET HORMONE LISBET HORMONE REPLACEMENT REPLACEMENT THERAPY THERAPY (V07.4) ABNORMAL ABNORMAL Problem Active Mu, MAMMOGRAM MAMMOGRAM Katelynn ANXIETY AND ANXIETY AND Problem Active Mu, DEPRESSION DEPRESSION Katelynn DEFICIENCY, DEFICIENCY, Problem Active 1, Lab VITAMIN D VITAMIN D NOS (268.9) NOS DISORDER, DISORDER, Problem Active Mu, MENOPAUSAL MENOPAUSAL Katelynn NEC (627.8) NEC ELEVATED ELEVATED Problem Active 1, Lab FASTING FASTING BLOOD SUGAR BLOOD SUGAR ENCOUNTER VISIT FOR Problem Active Mu FOR SCREENING Katelynn SCREENING MAMMOGRAM MAMMOGRAM (Renamed FOR from MALIGNANT ENCOUNTER NEOPLASM OF FOR BREAST SCREENING MAMMOGRAM FOR MALIGNANT NEOPLASM OF BREAST) FIBROCYSTIC FIBROCYSTIC Problem Active Mu BREAST BREAST Katelynn CHANGES, CHANGES, BILATERAL BILATERAL GENERAL GENERAL Problem Active Mu, SYMPTOMS; SYMPTOMS; Katelynn DIZZINESS DIZZINESS AND AND GIDDINESS GIDDINESS (780.4) HYPERCHOLES HYPERCHOLES Problem Active Mu TEREMIA TEREMIA Katelynn POSTMENOPAU POSTMENOPAU Problem Active Mu, LISBET LISBET Katelynn ATROPHIC ATROPHIC VAGINITIS VAGINITIS (627.3) SCREENING SCREENING Problem Active RAMANA Dobbins FOR Katelynn MALIGNANT MALIGNANT NEOPLASMS NEOPLASMS OF THE OF THE RECTUM RECTUM (V76.41) SPECIAL SPECIAL Problem Active Mu, SCREENING SCREENING Katelynn FOR FOR MALIGNANT MALIGNANT NEOPLASMS, NEOPLASMS, MAMMOGRAM, MAMMOGRAM, OTHER OTHER (V76.12) STRESS STRESS Problem Active Mu, INCONTINENC INCONTINENC Katelynn E, FEMALE E, FEMALE (625.6) SYMPTOM, SYMPTOM, Problem Active Mu, MALAISE AND MALAISE AND Katelynn FATIGUE NEC FATIGUE NEC (780.79) SYMPTOMS SYMPTOMS Problem Active Mu, INVOLVING INVOLVING Katelynn CARDIOVASCU CARDIOVASCU LAR SYSTEM; LAR SYSTEM; TACHYCARDIA TACHYCARDIA , , UNSPECIFIED UNSPECIFIED (785.0) UNSPECIFIED UNSPECIFIED Problem Active 1, 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) FOLLOW-UP FOLLOW-UP Problem Inactiv Kamille, EXAMINATION EXAMINATION omayra Hook , AFTER , AFTER SURGERY NOS SURGERY NOS (V67.00) GYNECOLOGIC GYNECOLOGIC Problem Inactiv Kamille, AL AL e Miladys EXAMINATION EXAMINATION (V72.3) SCREENING SCREENING Problem Inactiv Kamille FOR FOR omayra Hook MALIGNANT MALIGNANT NEOPLASMS NEOPLASMS OF THE OF THE CERVIX CERVIX (V76.2) Disease No Condition Inactiv Impairment e Information Available LEFT LEFT Problem Active Dale, SHOULDER SHOULDER Kevin Ahuja PAIN PAIN URINARY, URINARY, Problem Inactiv Rouse, INCONTINENC INCONTINENC e Miranda Cutler, STRESS E, STRESS FEMALE FEMALE Procedures Procedure Date / Time Performed Performing Clinician Erik e RADIOLOGIC EXAM SHOULDER 2 VIEWS 2019-02-16 00:00:00 RADIOLOGIC EXAM SHOULDER 2 VIEWS 2018-08-18 00:00:00 Total Shoulder Arthroplasty 2018-02-17 00:00:00 Total Shoulder Arthroplasty (Surg) 2018-02-17 00:00:00 SCREENING MAMMOGRAPHY, PRODUCING 2014-09-10 00:00:00 Shila Hunter DIRECT DIGITAL IMAGE, BILATERAL, ALL VIEWS ([id number]) Bone Density Study Katelynn Dobbins Colonoscopy Katelynn Dobbins Dilation And Curettage Of Uterus Katelynn Dobbins Hysterectomy; Abdominal Katelynn Dobbins Mammogram, Screening Katelynn Dobbins Oophorectomy; Bilateral Katelynn Dobbins Pap Smear Katelynn Dobbins Tubal Ligation Katelynn Dobbins Shoulder Surgery Iris Lo Results Test Description Test Time Test Comments Text Results Atomic Results Result Comments SARS-CoV-2 RNA Resp Ql JEAN+probe 2020-05-27 00:00:00 Test Item Value Reference Range Comments SARS-CoV-2 RNA Resp Ql JEAN+probe Not detected [facility] ID: (test code = 99817-3) [id number] URINALYSIS, AUTOMATED, W/O MICRO ([id number])2018-04-07 00:00:00 Test Item Value Reference Range Comments UA - COMMENTS (test code = UA - COMMENTS) . rt UA - LEUKOCYTE ESTERASE (test code = 5799-2) Trace UA - NITRITE (test code = 5802-4) Negative UA - URO (test code = UA - URO) 0.2 mg/dL UA - PROTEIN (test code = 49688-8) Negative UA - PH (test code = 5803-2) 5.5 UA - BLOOD (test code = 5794-3) Negative UA - SPECIFIC GRAVITY (test code = 2965-2) >1.030 UA - KETONES (test code = 2514-8) Negative UA - BILIRUBIN (test code = 5770-3) Negative UA - GLUCOSE (test code = 5792-7) Negative UA - COLOR (test code = 5778-6) dark yellow UA - APPEARANCE (test code = 5767-9) Clear [id number] 00:00:00 Test Item Value Reference Range Comments GRA# (test code = GRA#) 4.20 10^3/mm^3 1.4-6.5 Note = s ht GRA% (test code = GRA%) 72.3 % 42.2-75.2 MON# (test code = MON#) 0.20 10^3/mm^3 0.1-0.6 MON% (test code = MON%) 3.6 % 1.7-9.3 LYM# (test code = LYM#) 1.40 10^3/mm^3 1.2-3.4 LYM% (test code = LYM%) 24.1 % 20.5-51.1 MPV (test code = MPV) 6.8 ?m^3 7.8-11 PLT (test code = PLT) 256 10^3/mm^3 150-400 RDW (test code = RDW) 13.9 % 11.6-13.7 MCHC (test code = MCHC) 32.7 g/dL 33-37 MCH (test code = MCH) 29.0 pg 27-37 MCV (test code = MCV) 89 ?m^3 80-99.9 HCT (test code = HCT) 43.3 % 35-60 HGB (test code = HGB) 14.1 g/dL 11-18 RBC (test code = RBC) 4.88 10^6/mm^3 4-6 WBC (test code = WBC) 5.8 10^3/mm^3 4.5-10.5 Comp. Metabolic Panel (14)2018-03-18 00:00:00 Test Item Value Reference Range Comments ALT (SGPT) (test code = 1742-6) 29 [iU]/L 0-32 AST (SGOT) (test code = 1920-8) 16 [iU]/L 0-40 Alkaline Phosphatase (test code = 6768-6) 128 [iU]/L 39-117 Bilirubin, Total (test code = 1975-2) 0.3 mg/dL 0.0-1.2 A/G Ratio (test code = 1759-0) 1.9 1.2-2.2 Globulin, Total (test code = 73193-8) 2.4 g/dL 1.5-4.5 Albumin (test code = 1751-7) 4.5 g/dL 3.6-4.8 Protein, Total (test code = 2885-2) 6.9 g/dL 6.0-8.5 Calcium (test code = 82108-1) 9.6 mg/dL 8.7-10.3 Carbon Dioxide, Total (test code = 2027-9) 24 mmol/L 20-29 Chloride (test code = 2075-0) 101 mmol/L 96-106 Potassium (test code = 2823-3) 4.6 mmol/L 3.5-5.2 Sodium (test code = 2951-2) 142 mmol/L 134-144 BUN/Creatinine Ratio (test code = 3097-3) 24 12-28 eGFR If Africn Am (test code = 17676-8) 112 mL/min/1.73 >59 eGFR If NonAfricn Am (test code = 13061-4) 97 mL/min/1.73 >59 Creatinine (test code = 2160-0) 0.55 mg/dL 0.57-1.00 BUN (test code = 3094-0) 13 mg/dL 8-27 Glucose (test code = 2345-7) 89 mg/dL 65-99 PATIENT NOT FASTING PERFORMED BY: [facility] [address] [id number] 00:00:00 Test Item Value Reference Range Comments Hemoglobin A1c (test code = 5.8 % 4.8-5.6 . Pr ediabetes: 5.7 - 6.4 4548-4) Diabetes: >6.4 G lycemic control for adul ts with diabetes: <7.0 PATIENT NOT FASTING PERFORMED BY: [facility] [address] [id number] 00:00:00 Test Item Value Reference Range Comments LDL Cholesterol Calc (test code = 90976-3) 99 mg/dL 0-99 HDL Cholesterol (test code = 2085-9) 61 mg/dL >39 VLDL Cholesterol Erasto (test code = 06350-3) 26 mg/dL 5-40 Triglycerides (test code = 2571-8) 129 mg/dL 0-149 Cholesterol, Total (test code = 2093-3) 186 mg/dL 100-199 PATIENT NOT FASTING PERFORMED BY: [facility] [id number] 00:00:00 Test Item Value Reference Range Comments TSH (test code = 34775-9) 1.490 uIU/mL 0.450-4.500 PATIENT NOT FASTING PERFORMED BY: [facility] [id number] D, [id number] 00:00:00 Test Item Value Reference Range Comments Vitamin D, 25-Hydroxy 23.1 ng/mL 30.0-100.0 Vitamin D deficiency has been (test code = 29050-1) defined by the [place] [employer] and an Endocrine Society practice guideline as a level of serum 2 5-OH vitamin D less than 20 ng/ mL (1,2). The Endocrine Societ y went on to further define v itamin D insufficiency as a level between 21 and 29 ng/mL (2). 1. IOM ([place] dicine). 2010. Dietary referenc e intakes for calcium and D. [place]: The National Summer demies Press. 2. Violetta MF, Nalini gomez [place], Layla PATRICK, et al. Evaluation, na tment, and prevention of vi tamin D deficiency: an E ndocrine Society clinical practic e guideline. JCEM. 2010; 96(7):1911-30. PATIENT NOT FASTING PERFORMED BY: [facility] [id number] 00:00:00 Test Item Value Reference Range Comments GRA# (test code = GRA#) 3.70 10^3/mm^3 1.4-6.5 Note = s ht GRA% (test code = GRA%) 69.9 % 42.2-75.2 MON# (test code = MON#) 0.10 10^3/mm^3 0.1-0.6 MON% (test code = MON%) 3.6 % 1.7-9.3 LYM# (test code = LYM#) 1.30 10^3/mm^3 1.2-3.4 LYM% (test code = LYM%) 26.5 % 20.5-51.1 MPV (test code = MPV) 7.7 ?m^3 7.8-11 PLT (test code = PLT) 186 10^3/mm^3 150-400 RDW (test code = RDW) 13.9 % 11.6-13.7 MCHC (test code = MCHC) 33.8 g/dL 33-37 MCH (test code = MCH) 30.0 pg 27-37 MCV (test code = MCV) 89 ?m^3 80-99.9 HCT (test code = HCT) 42.1 % 35-60 HGB (test code = HGB) 14.2 g/dL 11-18 RBC (test code = RBC) 4.73 10^6/mm^3 4-6 WBC (test code = WBC) 5.1 10^3/mm^3 4.5-10.5 Comp. Metabolic Panel (14)2017-09-20 00:00:00 Test Item Value Reference Range Comments ALT (SGPT) (test code = 1742-6) 22 [iU]/L 0-32 AST (SGOT) (test code = 1920-8) 19 [iU]/L 0-40 Alkaline Phosphatase (test code = 6768-6) 87 [iU]/L 39-117 Bilirubin, Total (test code = 1975-2) 0.6 mg/dL 0.0-1.2 A/G Ratio (test code = 1759-0) 1.7 1.2-2.2 Globulin, Total (test code = 23469-2) 2.6 g/dL 1.5-4.5 Albumin (test code = 1751-7) 4.3 g/dL 3.6-4.8 Protein, Total (test code = 2885-2) 6.9 g/dL 6.0-8.5 Calcium (test code = 81269-7) 9.5 mg/dL 8.7-10.3 Carbon Dioxide, Total (test code = 8-9) 24 mmol/L 18-29 Chloride (test code = 2075-0) 103 mmol/L 96-106 Potassium (test code = 2823-3) 5.0 mmol/L 3.5-5.2 Sodium (test code = 2951-2) 141 mmol/L 134-144 BUN/Creatinine Ratio (test code = 3097-3) 29 12-28 eGFR If Africn Am (test code = 14041-9) 110 mL/min/1.73 >59 eGFR If NonAfricn Am (test code = 46205-3) 95 mL/min/1.73 >59 Creatinine (test code = 2160-0) 0.59 mg/dL 0.57-1.00 BUN (test code = 3094-0) 17 mg/dL 8-27 Glucose (test code = 2345-7) 98 mg/dL 65-99 PATIENT WAS FASTING PERFORMED BY: [facility] [address] [id number] 00:00:00 Test Item Value Reference Range Comments Hemoglobin A1c (test code = 5.8 % 4.8-5.6 . Pr e-diabetes: 5.7 - 6.4 4548-4) Diabetes: >6.4 G lycemic control for adul ts with diabetes: <7.0 PATIENT WAS FASTING PERFORMED BY: [facility] [address] [id number] 00:00:00 Test Item Value Reference Range Comments LDL Cholesterol Calc (test code = 18983-1) 76 mg/dL 0-99 VLDL Cholesterol Erasto (test code = 79523-5) 17 mg/dL 5-40 HDL Cholesterol (test code = 2085-9) 53 mg/dL >39 Triglycerides (test code = 2571-8) 86 mg/dL 0-149 Cholesterol, Total (test code = 2093-3) 146 mg/dL 100-199 PATIENT WAS FASTING PERFORMED BY: [facility] [address] [id number] 00:00:00 Test Item Value Reference Range Comments TSH (test code = 85459-4) 1.440 uIU/mL 0.450-4.500 PATIENT WAS FASTING PERFORMED BY: [facility] [address] [id number] D, [id number] 00:00:00 Test Item Value Reference Range Comments Vitamin D, 25-Hydroxy 40.2 ng/mL 30.0-100.0 Vitamin D deficiency has been (test code = 13408-6) defined by the [place] [employer] and an Endocrine Society practice guideline as a level of serum 2 5-OH vitamin D less than 20 ng/ mL (1,2). The Endocrine Societ y went on to further define v itamin D insufficiency as a level between 21 and 29 ng/mL (2). 1. IOM ([place] dic[place]ha). 2010. Dietary referenc e intakes for calcium and D. [place]: The National [employer] demies Press. 2. Violetta MF, Nalini gomez [place], Layla PATRICK, et al. Evaluation, na tment, and prevention of vi tamin D deficiency: an E ndocrine Society clinical practic e guideline. JCEM. 2010; 96(7):1911-30. PATIENT WAS FASTING PERFORMED BY: [facility] [address] [id number], AUTOMATED, W/O MICRO ([id number]) 2017-03-23 00:00:00 Test Item Value Reference Range Comments UA - COMMENTS (test code = UA - COMMENTS) . rt UA - LEUKOCYTE ESTERASE (test code = 5799-2) Negative UA - NITRITE (test code = 5802-4) Negative UA - URO (test code = UA - URO) 0.2 mg/dL UA - PROTEIN (test code = 83480-6) Negative UA - PH (test code = 5803-2) 5.5 UA - BLOOD (test code = 5794-3) Negative UA - SPECIFIC GRAVITY (test code = 2965-2) 1.015 UA - KETONES (test code = 2514-8) Negative UA - BILIRUBIN (test code = 5770-3) Negative UA - GLUCOSE (test code = 5792-7) Negative UA - COLOR (test code = 5778-6) Yellow UA - APPEARANCE (test code = 5767-9) Clear Comp. Metabolic Panel (14)2017-03-17 00:00:00 Test Item Value Reference Range Comments ALT (SGPT) (test code = 1742-6) 32 [iU]/L 0-32 AST (SGOT) (test code = 1920-8) 16 [iU]/L 0-40 Alkaline Phosphatase, S (test code = 6768-6) 110 [iU]/L 39- 117 Bilirubin, Total (test code = 1975-2) 0.4 mg/dL 0.0-1.2 A/G Ratio (test code = 1759-0) 1.7 1.2-2.2 Globulin, Total (test code = 96893-4) 2.5 g/dL 1.5-4.5 Albumin, Serum (test code = 1751-7) 4.3 g/dL 3.6-4.8 Protein, Total, Serum (test code = 2885-2) 6.8 g/dL 6.0-8 .5 Calcium, Serum (test code = 79534-4) 9.7 mg/dL 8.7-10.3 Carbon Dioxide, Total (test code = 2027-9) 27 mmol/L 18-29 Chloride, Serum (test code = 2075-0) 101 mmol/L 96-106 Potassium, Serum (test code = 2823-3) 5.0 mmol/L 3.5-5.2 Sodium, Serum (test code = 2951-2) 143 mmol/L 134-144 BUN/Creatinine Ratio (test code = 3097-3) 25 12-28 eGFR If Africn Am (test code = 80522-7) 112 mL/min/1.73 >59 eGFR If NonAfricn Am (test code = 23327-8) 97 mL/min/1.73 >59 Creatinine, Serum (test code = 2160-0) 0.57 mg/dL 0.57-1.00 BUN (test code = 3094-0) 14 mg/dL 8-27 Glucose, Serum (test code = 2345-7) 97 mg/dL 65-99 PATIENT WAS FASTING PERFORMED BY: [facility] [place] [id number] [facility] [id number] 00:00:00 Test Item Value Reference Range Comments Hemoglobin A1c (test code = 5.8 % 4.8-5.6 . Pr e-diabetes: 5.7 - 6.4 4548-4) Diabetes: >6.4 G lycemic control for adul ts with diabetes: <7.0 PATIENT WAS FASTING PERFORMED BY: [facility] [id number] 00:00:00 Test Item Value Reference Range Comments LDL Cholesterol Calc (test code = 12826-8) 100 mg/dL 0-99 VLDL Cholesterol Erasto (test code = 82541-8) 24 mg/dL 5-40 HDL Cholesterol (test code = 2085-9) 73 mg/dL >39 Triglycerides (test code = 2571-8) 122 mg/dL 0-149 Cholesterol, Total (test code = 2093-3) 197 mg/dL 100-199 PATIENT WAS FASTING PERFORMED BY: [facility] [address] [id number] 00:00:00 Test Item Value Reference Range Comments TSH (test code = 62542-8) 1.640 uIU/mL 0.450-4.500 PATIENT WAS FASTING PERFORMED BY: [facility] [id number] D, [id number] 00:00:00 Test Item Value Reference Range Comments Vitamin D, 25-Hydroxy 40.3 ng/mL 30.0-100.0 Vitamin D deficiency has been (test code = 93471-7) defined by the [place] [employer] and an Endocrine Society practice guideline as a level of serum 2 5-OH vitamin D less than 20 ng/ mL (1,2). The Endocrine Societ y went on to further define v itamin D insufficiency as a level between 21 and 29 ng/mL (2). 1. IOM ([place] dic[place]). 2010. Dietary referenc e intakes for calcium and D. [place]: The National [employer] demies Press. 2. Violetta MF, Nalini gomez [place], Layla PATRICK, et al. Evaluation, na tment, and prevention of vi tamin D deficiency: an E ndocrine Society clinical practic e guideline. JCEM. 2010; 96(7):1911-30. PATIENT WAS FASTING PERFORMED BY: [facility] [id number] HEALTH PANEL (ECWC-CBC,CMP,TSH) ([id number])2017-03-17 00:00:00 Test Item Value Reference Range Comments CBC COMMENTS (test code = 75190-5) . C rt MPV (test code = 776-5) 6.9 fL 7.8-11.0 BLOOD COUNT, PLATELET, AUTOMATED (test code = 223 x10^3uL 15 0-400 777-3) RDW (RED CELL DISTRIBUTION WIDTH) (test code = 14.7 % 1 1.6-13.7 788-0) MCHC (MEAN CORPUSCULAR HEMOGLOBIN CONCENTRATI 32.8 g/dL 33 .0-37.0 (test code = 786-4) MCH (MEAN CORPUSCULAR HEMOGLOBIN) (test code = 28.9 pg 2 7.0-37.0 785-6) MCV (MEAN CORPUSCULAR VOLUME) (test code = 88 fL 80.0- 99.9 787-2) HCT (HEMATOCRIT) (test code = 4544-3) 43.8 % 35.0-60.0 HGB (HEMOGLOBIN) (test code = 718-7) 14.4 g/dL 11.0-18.0 RBC (test code = 789-8) 4.97 x10^6uL 4.00-6.00 GRANULOCYTE % (test code = 770-8) 4.30 x10^3uL 1.4-6.5 MONOCYTES (test code = 5905-5) 0.20 x10^3uL 0.1-0.6 LYMPHOCYTE % (test code = 736-9) 24.7 % 20.5-51.1 GRANULOCYTE # (test code = 751-8) 71.8 % 42.2-75.2 MONOCYTE # (test code = 742-7) 3.5 % 1.7-9.3 WBC (test code = 6690-2) 5.9 x10^3uL 4.5-10.5 Comp. Metabolic Panel (14)2016-09-17 00:00:00 Test Item Value Reference Range Comments ALT (SGPT) (test code = 1742-6) 24 [iU]/L 0-32 AST (SGOT) (test code = 1920-8) 17 [iU]/L 0-40 Alkaline Phosphatase, S (test code = 6768-6) 79 [iU]/L 39- 117 Bilirubin, Total (test code = 1975-2) 0.3 mg/dL 0.0-1.2 A/G Ratio (test code = 1759-0) 2.0 1.2-2.2 Globulin, Total (test code = 58295-1) 2.2 g/dL 1.5-4.5 Albumin, Serum (test code = 1751-7) 4.4 g/dL 3.6-4.8 Protein, Total, Serum (test code = 2885-2) 6.6 g/dL 6.0-8 .5 Calcium, Serum (test code = 59787-3) 9.3 mg/dL 8.7-10.3 Carbon Dioxide, Total (test code = 2027-9) 27 mmol/L 18-29 Chloride, Serum (test code = 5-0) 102 mmol/L 96-106 Potassium, Serum (test code = 2823-3) 4.7 mmol/L 3.5-5.2 Sodium, Serum (test code = 2951-2) 142 mmol/L 134-144 BUN/Creatinine Ratio (test code = 3097-3) 26 12-28 eGFR If Africn Am (test code = 40998-7) 112 mL/min/1.73 >59 eGFR If NonAfricn Am (test code = 70224-2) 97 mL/min/1.73 >59 Creatinine, Serum (test code = 2160-0) 0.57 mg/dL 0.57-1.00 BUN (test code = 3094-0) 15 mg/dL 8-27 Glucose, Serum (test code = 2345-7) 106 mg/dL 65-99 PATIENT WAS FASTING PERFORMED BY: [place] [id number] [facility] [id number] 00:00:00 Test Item Value Reference Range Comments LDL Cholesterol Calc (test code = 46121-2) 61 mg/dL 0-99 VLDL Cholesterol Erasto (test code = 94301-8) 16 mg/dL 5-40 HDL Cholesterol (test code = 2085-9) 66 mg/dL >39 Triglycerides (test code = 2571-8) 81 mg/dL 0-149 Cholesterol, Total (test code = 2093-3) 143 mg/dL 100-199 PATIENT WAS FASTING PERFORMED BY: [facility] [address] [id number] 00:00:00 Test Item Value Reference Range Comments TSH (test code = 17474-6) 2.030 uIU/mL 0.450-4.500 PATIENT WAS FASTING PERFORMED BY: [facility] [address] [id number] D, [id number] 00:00:00 Test Item Value Reference Range Comments Vitamin D, 25-Hydroxy 55.8 ng/mL 30.0-100.0 Vitamin D deficiency has been (test code = 65484-6) defined by the [place] [employer] and an Endocrine Society practice guideline as a level of serum 2 5-OH vitamin D less than 20 ng/ mL (1,2). The Endocrine Societ y went on to further define v itamin D insufficiency as a level between 21 and 29 ng/mL (2). 1. IOM ([place] [employer] [place] [employer]). 2010. Dietary referenc e intakes for calcium and D. W devi [place]: The [employer]. 2. Violetta MF, Nalini gomez NC, Layla PATRICK, et al. Evaluation, na tment, and prevention of vi tamin D deficiency: an E ndocrine Society clinical practic e guideline. JCEM. 2010; 96(7):1911-30. PATIENT WAS FASTING PERFORMED BY: [facility] [address] [id number] HEALTH PANEL (ECWC-CBC,CMP,TSH) ([id number])2016-09-17 00:00:00 Test Item Value Reference Range Comments CBC COMMENTS (test code = 20639-3) . C rt MPV (test code = 776-5) 9.3 fL 7.8-11.0 BLOOD COUNT, PLATELET, AUTOMATED (test code = 193 x10^3uL 15 0-400 777-3) RDW (RED CELL DISTRIBUTION WIDTH) (test code = 11.6 % 1 1.6-13.7 788-0) MCHC (MEAN CORPUSCULAR HEMOGLOBIN CONCENTRATI 32.2 g/dL 33 .0-37.0 (test code = 786-4) MCH (MEAN CORPUSCULAR HEMOGLOBIN) (test code = 27.7 pg 2 7.0-37.0 785-6) MCV (MEAN CORPUSCULAR VOLUME) (test code = 85.8 fL 80.0- 99.9 787-2) HCT (HEMATOCRIT) (test code = 4544-3) 42.2 % 35.0-60.0 HGB (HEMOGLOBIN) (test code = 718-7) 13.6 g/dL 11.0-18.0 RBC (test code = 789-8) 4.92 x10^6uL 4.00-6.00 GRANULOCYTE % (test code = 770-8) 3.5 x10^3uL 1.4-6.5 MONOCYTES (test code = 5905-5) 0.4 x10^3uL 0.1-0.6 LYMPHOCYTE % (test code = 736-9) 27.6 % 20.5-51.1 GRANULOCYTE # (test code = 751-8) 66.6 % 42.2-75.2 MONOCYTE # (test code = 742-7) 5.8 % 1.7-9.3 WBC (test code = 6690-2) 5.3 x10^3uL 4.5-10.5 URINALYSIS, AUTOMATED, W/O MICRO ([id number])2016-03-20 00:00:00 Test Item Value Reference Range Comments UA - COMMENTS (test code = UA - COMMENTS) . rt UA - LEUKOCYTE ESTERASE (test code = 5799-2) Negative UA - NITRITE (test code = 5802-4) Negative UA - URO (test code = UA - URO) 0.2 mg/dL UA - PROTEIN (test code = 55263-1) Trace UA - PH (test code = 5803-2) 5.0 UA - BLOOD (test code = 5794-3) Negative UA - SPECIFIC GRAVITY (test code = 2965-2) >1.030 UA - KETONES (test code = 2514-8) Negative UA - BILIRUBIN (test code = 5770-3) Negative UA - GLUCOSE (test code = 5792-7) Negative UA - COLOR (test code = 5778-6) Yellow UA - APPEARANCE (test code = 5767-9) Clear Comp. Metabolic Panel (14)2016-03-13 00:00:00 Test Item Value Reference Range Comments ALT (SGPT) (test code = 1742-6) 56 [iU]/L 0-32 AST (SGOT) (test code = 1920-8) 23 [iU]/L 0-40 Alkaline Phosphatase, S (test code = 6768-6) 125 [iU]/L 39- 117 Bilirubin, Total (test code = 1975-2) 0.6 mg/dL 0.0-1.2 A/G Ratio (test code = 1759-0) 2.1 1.1-2.5 Globulin, Total (test code = 08893-4) 2.1 g/dL 1.5-4.5 Albumin, Serum (test code = 1751-7) 4.4 g/dL 3.6-4.8 Protein, Total, Serum (test code = 2885-2) 6.5 g/dL 6.0-8 .5 Calcium, Serum (test code = 77323-0) 9.2 mg/dL 8.7-10.3 Carbon Dioxide, Total (test code = 2027-9) 27 mmol/L 18-29 Chloride, Serum (test code = 2075-0) 100 mmol/L 97-106 Potassium, Serum (test code = 2823-3) 4.5 mmol/L 3.5-5.2 Sodium, Serum (test code = 2951-2) 141 mmol/L 136-144 BUN/Creatinine Ratio (test code = 3097-3) 22 11-26 eGFR If Africn Am (test code = 48690-4) 114 mL/min/1.73 >59 eGFR If NonAfricn Am (test code = 58373-6) 99 mL/min/1.73 >59 Creatinine, Serum (test code = 2160-0) 0.55 mg/dL 0.57-1.00 BUN (test code = 3094-0) 12 mg/dL 8-27 Glucose, Serum (test code = 2345-7) 87 mg/dL 65-99 PATIENT WAS FASTING PERFORMED BY: [facility] [id number] 00:00:00 Test Item Value Reference Range Comments LDL Cholesterol Calc (test code 117 mg/dL 0-99 = 82038-8) VLDL Cholesterol Erasto (test code 31 mg/dL 5-40 = 83298-9) HDL Cholesterol (test code = 68 mg/dL >39 Acc ording to ATP-III 5-9) Guidelines, HDL- C >59 mg/dL is considered a negative risk factor for CHD. Triglycerides (test code = 155 mg/dL 0-149 2571-8) Cholesterol, Total (test code = 216 mg/dL 380-042 7992-3) PATIENT WAS FASTING PERFORMED BY: [facility] [address] [id number] 00:00:00 Test Item Value Reference Range Comments TSH (test code = 61440-1) 1.990 uIU/mL 0.450-4.500 PATIENT WAS FASTING PERFORMED BY: [facility] [address] [id number] D, [id number] 00:00:00 Test Item Value Reference Range Comments Vitamin D, 25-Hydroxy 40.1 ng/mL 30.0-100.0 Vitamin D deficiency has been (test code = 31316-3) defined by the [place] [employer] and an Endocrine Society practice guideline as a level of serum 2 5-OH vitamin D less than 20 ng/ mL (1,2). The Endocrine Societ y went on to further define v itamin D insufficiency as a level between 21 and 29 ng/mL (2). 1. IOM ([place] [employer] [place] [employer]). 2010. Dietary referenc e intakes for calcium and D. W devi [place]: The National [facility] demies Press. 2. Violetta MF, Nalini DE SOUZA, Layla PATRICK, et al. Evaluation, na tment, and prevention of vi tamin D deficiency: an E ndocrine Society clinical practic e guideline. JCEM. 2010; 96(7):1911-30. PATIENT WAS FASTING PERFORMED BY: [facility] [id number] HEALTH PANEL (ECWC-CBC,CMP,TSH) ([id number])2016-03-13 00:00:00 Test Item Value Reference Range Comments CBC COMMENTS (test code = 03578-1) . C rt MPV (test code = 776-5) 8.6 fL 7.8-11.0 BLOOD COUNT, PLATELET, AUTOMATED (test code = 211 x10^3uL 15 0-400 777-3) RDW (RED CELL DISTRIBUTION WIDTH) (test code = 11.6 % 1 1.6-13.7 788-0) MCHC (MEAN CORPUSCULAR HEMOGLOBIN CONCENTRATI 33.5 g/dL 33 .0-37.0 (test code = 786-4) MCH (MEAN CORPUSCULAR HEMOGLOBIN) (test code = 28.6 pg 2 7.0-37.0 785-6) MCV (MEAN CORPUSCULAR VOLUME) (test code = 85.4 fL 80.0- 99.9 787-2) HCT (HEMATOCRIT) (test code = 4544-3) 43.3 % 35.0-60.0 HGB (HEMOGLOBIN) (test code = 718-7) 14.5 g/dL 11.0-18.0 RBC (test code = 789-8) 5.07 x10^6uL 4.00-6.00 GRANULOCYTE % (test code = 770-8) 5.2 x10^3uL 1.4-6.5 MONOCYTES (test code = 5905-5) 0.5 x10^3uL 0.1-0.6 LYMPHOCYTE % (test code = 736-9) 22.9 % 20.5-51.1 GRANULOCYTE # (test code = 751-8) 71.4 % 42.2-75.2 MONOCYTE # (test code = 742-7) 5.7 % 1.7-9.3 WBC (test code = 6690-2) 7.3 x10^3uL 4.5-10.5 Comp. Metabolic Panel (14)2015-09-16 00:00:00 Test Item Value Reference Range Comments ALT (SGPT) (test code = 1742-6) 28 [iU]/L 0-32 AST (SGOT) (test code = 1920-8) 21 [iU]/L 0-40 Alkaline Phosphatase, S (test code = 6768-6) 97 [iU]/L 39- 117 Bilirubin, Total (test code = 1975-2) 0.4 mg/dL 0.0-1.2 A/G Ratio (test code = 1759-0) 2.3 1.1-2.5 Globulin, Total (test code = 88881-9) 2.0 g/dL 1.5-4.5 Albumin, Serum (test code = 1751-7) 4.5 g/dL 3.6-4.8 Protein, Total, Serum (test code = 2885-2) 6.5 g/dL 6.0-8 .5 Calcium, Serum (test code = 91599-6) 9.2 mg/dL 8.7-10.3 Carbon Dioxide, Total (test code = 2027-9) 25 mmol/L 18-29 Chloride, Serum (test code = 2075-0) 102 mmol/L 97-108 Potassium, Serum (test code = 2823-3) 4.3 mmol/L 3.5-5.2 Sodium, Serum (test code = 2951-2) 142 mmol/L 134-144 BUN/Creatinine Ratio (test code = 3097-3) 22 11-26 eGFR If Africn Am (test code = 73415-1) 111 mL/min/1.73 >59 eGFR If NonAfricn Am (test code = 94943-5) 96 mL/min/1.73 >59 Creatinine, Serum (test code = 2160-0) 0.59 mg/dL 0.57-1.00 BUN (test code = 3094-0) 13 mg/dL 8-27 Glucose, Serum (test code = 2345-7) 89 mg/dL 65-99 PATIENT NOT FASTING PERFORMED BY: [facility] [address] [facility] [id number] 00:00:00 Test Item Value Reference Range Comments LDL Cholesterol Calc (test code 69 mg/dL 0-99 = 51815-2) VLDL Cholesterol Erasto (test code 20 mg/dL 5-40 = 32849-1) HDL Cholesterol (test code = 59 mg/dL >39 Acc ording to ATP-III 5-9) Guidelines, HDL- C >59 mg/dL is considered a negative risk factor for CHD. Triglycerides (test code = 98 mg/dL 0-149 2571-8) Cholesterol, Total (test code = 148 mg/dL 839-965 2455-3) PATIENT NOT FASTING PERFORMED BY: [facility] [id number] 00:00:00 Test Item Value Reference Range Comments TSH (test code = 08401-5) 2.060 uIU/mL 0.450-4.500 PATIENT NOT FASTING PERFORMED BY: [facility] [address] [id number] D, [id number] 00:00:00 Test Item Value Reference Range Comments Vitamin D, 25-Hydroxy 46.2 ng/mL 30.0-100.0 Vitamin D deficiency has been (test code = 73651-5) defined by the [place] [employer] and an Endocrine Society practice guideline as a level of serum 2 5-OH vitamin D less than 20 ng/ mL (1,2). The Endocrine Societ y went on to further define v itamin D insufficiency as a level between 21 and 29 ng/mL (2). 1. IOM ([place] [employer] [place] d[employer]). 2010. Dietary referenc e intakes for calcium and D. W devi [place]: The [employer]. 2. Violetta MF, Nalini gomez [place], Layla PATRICK, et al. Evaluation, na tment, and prevention of vi tamin D deficiency: an E ndocrine Society clinical practic e guideline. JCEM. 2010; 96(7):1911-30. PATIENT NOT FASTING PERFORMED BY: [facility] [id number] HEALTH PANEL (ECWC-CBC,CMP,TSH) ([id number])2015-09-16 00:00:00 Test Item Value Reference Range Comments CBC COMMENTS (test code = 95717-8) . C rt MPV (test code = 776-5) 9.0 fL 7.8-11.0 BLOOD COUNT, PLATELET, AUTOMATED (test code = 216 x10^3uL 15 0-400 777-3) RDW (RED CELL DISTRIBUTION WIDTH) (test code = 11.1 % 1 1.6-13.7 788-0) MCHC (MEAN CORPUSCULAR HEMOGLOBIN CONCENTRATI 33.6 g/dL 33 .0-37.0 (test code = 786-4) MCH (MEAN CORPUSCULAR HEMOGLOBIN) (test code = 27.8 pg 2 7.0-37.0 785-6) MCV (MEAN CORPUSCULAR VOLUME) (test code = 82.7 fL 80.0- 99.9 787-2) HCT (HEMATOCRIT) (test code = 4544-3) 42.3 % 35.0-60.0 HGB (HEMOGLOBIN) (test code = 718-7) 14.2 g/dL 11.0-18.0 RBC (test code = 789-8) 5.11 x10^6uL 4.00-6.00 GRANULOCYTE % (test code = 770-8) 4.3 x10^3uL 1.4-6.5 MONOCYTES (test code = 5905-5) 0.3 x10^3uL 0.1-0.6 LYMPHOCYTE % (test code = 736-9) 25.5 % 20.5-51.1 GRANULOCYTE # (test code = 751-8) 69.2 % 42.2-75.2 MONOCYTE # (test code = 742-7) 5.3 % 1.7-9.3 WBC (test code = 6690-2) 6.2 x10^3uL 4.5-10.5 URINALYSIS, AUTOMATED, W/O MICRO ([id number])2015-03-18 00:00:00 Test Item Value Reference Range Comments UA - COMMENTS (test code = UA - COMMENTS) . sht UA - LEUKOCYTE ESTERASE (test code = 5799-2) Negative UA - NITRITE (test code = 5802-4) Negative UA - URO (test code = UA - URO) 0.2 mg/dL UA - PROTEIN (test code = 27274-0) Negative UA - PH (test code = 5803-2) 6.0 UA - BLOOD (test code = 5794-3) Negative UA - SPECIFIC GRAVITY (test code = 2965-2) 1.025 UA - KETONES (test code = 2514-8) Negative UA - BILIRUBIN (test code = 5770-3) Negative UA - GLUCOSE (test code = 5792-7) Negative UA - COLOR (test code = 5778-6) Yellow UA - APPEARANCE (test code = 5767-9) Clear Comp. Metabolic Panel (14)2015-03-05 00:00:00 Test Item Value Reference Range Comments ALT (SGPT) (test code = 1742-6) 62 [iU]/L 0-32 AST (SGOT) (test code = 1920-8) 32 [iU]/L 0-40 Alkaline Phosphatase, S (test code = 6768-6) 118 [iU]/L 39- 117 Bilirubin, Total (test code = 1975-2) 0.5 mg/dL 0.0-1.2 A/G Ratio (test code = 1759-0) 2.1 1.1-2.5 Globulin, Total (test code = 24632-2) 2.1 g/dL 1.5-4.5 Albumin, Serum (test code = 1751-7) 4.5 g/dL 3.6-4.8 Protein, Total, Serum (test code = 2885-2) 6.6 g/dL 6.0-8 .5 Calcium, Serum (test code = 04244-6) 9.4 mg/dL 8.7-10.3 Carbon Dioxide, Total (test code = 2027-9) 26 mmol/L 18-29 Chloride, Serum (test code = 5-0) 101 mmol/L 97-108 Potassium, Serum (test code = 2823-3) 4.9 mmol/L 3.5-5.2 Sodium, Serum (test code = 2951-2) 142 mmol/L 134-144 BUN/Creatinine Ratio (test code = 3097-3) 26 11-26 eGFR If Africn Am (test code = 32431-3) 108 mL/min/1.73 >59 eGFR If NonAfricn Am (test code = 53269-7) 94 mL/min/1.73 >59 Creatinine, Serum (test code = 2160-0) 0.66 mg/dL 0.57-1.00 BUN (test code = 3094-0) 17 mg/dL 8-27 Glucose, Serum (test code = 2345-7) 93 mg/dL 65-99 PERFORMED BY: [facility] [address] [id number] 00:00:00 Test Item Value Reference Range Comments LDL Cholesterol Calc (test code 94 mg/dL 0-99 Please note reference = 91661-0) interval change* * VLDL Cholesterol Erasto (test code 27 mg/dL 5-40 = 53666-5) HDL Cholesterol (test code = 71 mg/dL >39 Acc ording to ATP-III 5-9) Guidelines, HDL- C >59 mg/dL is considered a negative risk factor for CHD. Triglycerides (test code = 136 mg/dL 0-149 Ple ase note reference 2571-8) interval change* * Cholesterol, Total (test code = 192 mg/dL 100-199 Please note reference 2093-3) interval change* * PERFORMED BY: [facility] [id number] 00:00:00 Test Item Value Reference Range Comments TSH (test code = 88435-7) 1.600 uIU/mL 0.450-4.500 PERFORMED BY: [facility] [id number] D, [id number] 00:00:00 Test Item Value Reference Range Comments Vitamin D, 25-Hydroxy 36.1 ng/mL 30.0-100.0 Vitamin D deficiency has been (test code = 42701-3) defined by the [place] [employer] and an Endocrine Society practice guideline as a level of serum 2 5-OH vitamin D less than 20 ng/ mL (1,2). The Endocrine Societ y went on to further define v itamin D insufficiency as a level between 21 and 29 ng/mL (2). 1. IOM ([place] [employer] [place] d[employer]). 2010. Dietary referenc e intakes for calcium and D. W devi [place]: The [employer]. 2. Violetta MF, Nalini gomez [place], Layla PATRICK, et al. Evaluation, na tment, and prevention of vi tamin D deficiency: an E ndocrine Society clinical practic e guideline. JCEM. 2010; 96(7):1911-30. PERFORMED BY: [facility] [id number] HEALTH PANEL (ECWC-CBC,CMP,TSH) ([id number])2015-03-05 00:00:00 Test Item Value Reference Range Comments CBC COMMENTS (test code = 89606-0) . C rt MPV (test code = 776-5) 8.4 fL 7.8-11.0 BLOOD COUNT, PLATELET, AUTOMATED (test code = 214 x10^3uL 15 0-400 777-3) RDW (RED CELL DISTRIBUTION WIDTH) (test code = 10.9 % 1 1.6-13.7 788-0) MCHC (MEAN CORPUSCULAR HEMOGLOBIN CONCENTRATI 34.2 g/dL 33 .0-37.0 (test code = 786-4) MCH (MEAN CORPUSCULAR HEMOGLOBIN) (test code = 29.0 pg 2 7.0-37.0 785-6) MCV (MEAN CORPUSCULAR VOLUME) (test code = 84.8 fL 80.0- 99.9 787-2) HCT (HEMATOCRIT) (test code = 4544-3) 41.3 % 35.0-60.0 HGB (HEMOGLOBIN) (test code = 718-7) 14.1 g/dL 11.0-18.0 RBC (test code = 789-8) 4.87 x10^6uL 4.00-6.00 GRANULOCYTE % (test code = 770-8) 4.2 x10^3uL 1.4-6.5 MONOCYTES (test code = 5905-5) 0.4 x10^3uL 0.1-0.6 LYMPHOCYTE % (test code = 736-9) 26.7 % 20.5-51.1 GRANULOCYTE # (test code = 751-8) 68.1 % 42.2-75.2 MONOCYTE # (test code = 742-7) 5.2 % 1.7-9.3 WBC (test code = 6690-2) 6.2 x10^3uL 4.5-10.5 GENERAL HEALTH PANEL (ECWC-CBC,CMP,TSH) ([id number])2014-09-03 00:00:00 Test Item Value Reference Range Comments CBC COMMENTS (test code = 58698-2) . C ag MPV (test code = 776-5) 8.1 fL 7.8-11.0 BLOOD COUNT, PLATELET, AUTOMATED (test code = 210 x10^3uL 15 0-400 777-3) RDW (RED CELL DISTRIBUTION WIDTH) (test code = 11.2 % 1 1.6-13.7 788-0) MCHC (MEAN CORPUSCULAR HEMOGLOBIN CONCENTRATI 34.3 g/dL 33 .0-37.0 (test code = 786-4) MCH (MEAN CORPUSCULAR HEMOGLOBIN) (test code = 28.9 pg 2 7.0-37.0 785-6) MCV (MEAN CORPUSCULAR VOLUME) (test code = 84.3 fL 80.0- 99.9 787-2) HCT (HEMATOCRIT) (test code = 4544-3) 42.9 % 35.0-60.0 HGB (HEMOGLOBIN) (test code = 718-7) 14.7 g/dL 11.0-18.0 RBC (test code = 789-8) 5.09 x10^6uL 4.00-6.00 GRANULOCYTE % (test code = 770-8) 4.2 x10^3uL 1.4-6.5 MONOCYTES (test code = 5905-5) 0.4 x10^3uL 0.1-0.6 LYMPHOCYTE % (test code = 736-9) 27.6 % 20.5-51.1 GRANULOCYTE # (test code = 751-8) 67.4 % 42.2-75.2 MONOCYTE # (test code = 742-7) 5.0 % 1.7-9.3 WBC (test code = 6690-2) 6.3 x10^3uL 4.5-10.5 Comp. Metabolic Panel (14)2014-09-03 00:00:00 Test Item Value Reference Range Comments ALT (SGPT) (test code = 1742-6) 32 [iU]/L 0-32 AST (SGOT) (test code = 1920-8) 21 [iU]/L 0-40 Alkaline Phosphatase, S (test code = 6768-6) 99 [iU]/L 39- 117 Bilirubin, Total (test code = 1975-2) 0.4 mg/dL 0.0-1.2 A/G Ratio (test code = 1759-0) 2.0 1.1-2.5 Globulin, Total (test code = 90874-6) 2.3 g/dL 1.5-4.5 Albumin, Serum (test code = 1751-7) 4.6 g/dL 3.6-4.8 Protein, Total, Serum (test code = 2885-2) 6.9 g/dL 6.0-8 .5 Calcium, Serum (test code = 97080-8) 9.6 mg/dL 8.7-10.3 Carbon Dioxide, Total (test code = 2027-9) 23 mmol/L 18-29 Chloride, Serum (test code = 2075-0) 99 mmol/L 97-108 Potassium, Serum (test code = 2823-3) 4.6 mmol/L 3.5-5.2 Sodium, Serum (test code = 2951-2) 139 mmol/L 134-144 BUN/Creatinine Ratio (test code = 3097-3) 24 11-26 eGFR If Africn Am (test code = 11150-7) 110 mL/min/1.73 >59 eGFR If NonAfricn Am (test code = 70505-3) 96 mL/min/1.73 >59 Creatinine, Serum (test code = 2160-0) 0.62 mg/dL 0.57-1.00 BUN (test code = 3094-0) 15 mg/dL 8-27 Glucose, Serum (test code = 2345-7) 95 mg/dL 65-99 PATIENT WAS FASTING PERFORMED BY: [facility] [address] [id number] 00:00:00 Test Item Value Reference Range Comments LDL Cholesterol Calc (test code 139 mg/dL 0-99 = 78522-8) VLDL Cholesterol Erasto (test code 31 mg/dL 5-40 = 37826-8) HDL Cholesterol (test code = 60 mg/dL >39 Acc ording to ATP-III 2084-9) Guidelines, HDL- C >59 mg/dL is considered a negative risk factor for CHD. Cholesterol, Total (test code = 230 mg/dL 527-265 3618-3) Triglycerides (test code = 157 mg/dL 0-149 2571-8) PATIENT WAS FASTING PERFORMED BY: [facility] [address] [id number] 00:00:00 Test Item Value Reference Range Comments TSH (test code = 69341-5) 2.280 uIU/mL 0.450-4.500 PATIENT WAS FASTING PERFORMED BY: [facility] [address] [id number] D, [id number] 00:00:00 Test Item Value Reference Range Comments Vitamin D, 25-Hydroxy 34.8 ng/mL 30.0-100.0 Vitamin D deficiency has been (test code = 89184-7) defined by the [place] [employer] and an Endocrine Society practice guideline as a level of serum 2 5-OH vitamin D less than 20 ng/ mL (1,2). The Endocrine Societ y went on to further define v itamin D insufficiency as a level between 21 and 29 ng/mL (2). 1. IOM ([place] d[employer]). 2010. Dietary referenc e intakes for calcium and D. W devi [place]: The [employer]. 2. Violetta MF, Nalini gomez [place], Layla PATRICK, et al. Evaluation, na tment, and prevention of vi tamin D deficiency: an E ndocrine Society clinical practic e guideline. JCEM. 2010; 96(7):1911-30. PATIENT WAS FASTING PERFORMED BY: [facility] [address] [id number], AUTOMATED, W/O MICRO ([id number]) 2014-03-12 00:00:00 Test Item Value Reference Range Comments UA - COMMENTS (test code = UA - COMMENTS) . ag UA - LEUKOCYTE ESTERASE (test code = 5799-2) Trace UA - NITRITE (test code = 5802-4) Negative UA - URO (test code = UA - URO) 0.2 mg/dL UA - PROTEIN (test code = 52778-7) Negative UA - PH (test code = 5803-2) 5 4.6-8.0 UA - BLOOD (test code = 5794-3) Negative UA - SPECIFIC GRAVITY (test code = 2965-2) 1.025 1.001 -1.035 UA - KETONES (test code = 2514-8) Negative UA - BILIRUBIN (test code = 5770-3) Negative UA - GLUCOSE (test code = 5792-7) Negative UA - COLOR (test code = 5778-6) Yellow UA - APPEARANCE (test code = 5767-9) Clear Comp. Metabolic Panel (14)2014-03-01 00:00:00 Test Item Value Reference Range Comments ALT (SGPT) (test code = 1742-6) 25 [iU]/L 0-32 AST (SGOT) (test code = 1920-8) 16 [iU]/L 0-40 Alkaline Phosphatase, S (test code = 6768-6) 91 [iU]/L 39- 117 Bilirubin, Total (test code = 1975-2) 0.5 mg/dL 0.0-1.2 A/G Ratio (test code = 1759-0) 2.1 1.1-2.5 Globulin, Total (test code = 74381-1) 2.2 g/dL 1.5-4.5 Albumin, Serum (test code = 1751-7) 4.7 g/dL 3.6-4.8 Protein, Total, Serum (test code = 2885-2) 6.9 g/dL 6.0-8 .5 Calcium, Serum (test code = 80479-3) 9.4 mg/dL 8.6-10.2 Carbon Dioxide, Total (test code = 8-9) 25 mmol/L 18-29 Chloride, Serum (test code = 2075-0) 101 mmol/L 97-108 Potassium, Serum (test code = 2823-3) 4.2 mmol/L 3.5-5.2 Sodium, Serum (test code = 2951-2) 142 mmol/L 134-144 BUN/Creatinine Ratio (test code = 3097-3) 27 11-26 eGFR If Africn Am (test code = 06722-8) 118 mL/min/1.73 >59 eGFR If NonAfricn Am (test code = 35562-9) 103 mL/min/1.73 >59 Creatinine, Serum (test code = 2160-0) 0.51 mg/dL 0.57-1.00 BUN (test code = 3094-0) 14 mg/dL 8-27 Glucose, Serum (test code = 2345-7) 86 mg/dL 65-99 PATIENT WAS FASTING PERFORMED BY: [facility] [id number] 00:00:00 Test Item Value Reference Range Comments LDL Cholesterol Calc (test code 93 mg/dL 0-99 = 42827-6) VLDL Cholesterol Erasto (test code 40 mg/dL 5-40 = 24795-1) HDL Cholesterol (test code = 62 mg/dL >39 Acc ording to ATP-III 2084-) Guidelines, HDL- C >59 mg/dL is considered a negative risk factor for CHD. Triglycerides (test code = 198 mg/dL 0-149 2571-8) Cholesterol, Total (test code = 195 mg/dL 383-454 7335-3) PATIENT WAS FASTING PERFORMED BY: [facility] [address] [id number] 00:00:00 Test Item Value Reference Range Comments TSH (test code = 18470-8) 1.550 uIU/mL 0.450-4.500 PATIENT WAS FASTING PERFORMED BY: [facility] [id number], [id number] 00:00:00 Test Item Value Reference Range Comments Vitamin D, 25-Hydroxy 34.0 ng/mL 30.0-100.0 Vitamin D deficiency has been (test code = 94534-2) defined by the [place] [employer] and an Endocrine Society practice guideline as a level of serum 2 5-OH vitamin D less than 20 ng/ mL (1,2). The Endocrine Societ y went on to further define v itamin D insufficiency as a level between 21 and 29 ng/mL (2). 1. IOM ([place] [employer] d[employer]). 2010. Dietary referenc e intakes for calcium and D. W devi [place]: The [employer]. 2. Violetta MF, Nalini gomez NC, Layla PATRICK, et al. Evaluation, na tment, and prevention of vi tamin D deficiency: an E ndocrine Society clinical practic e guideline. JCEM. 2010; 96(7):1911-30. PATIENT WAS FASTING PERFORMED BY: [facility] [id number] HEALTH PANEL (ECWC-CBC,CMP,TSH) (92022)2014-03-01 00:00:00 Test Item Value Reference Range Comments CBC COMMENTS (test code = 08160-6) . C ag MPV (test code = 776-5) 8.4 fL 7.8-11.0 BLOOD COUNT, PLATELET, AUTOMATED (test code = 205 x10^3uL 15 0-400 777-3) RDW (RED CELL DISTRIBUTION WIDTH) (test code = 10.3 % 1 1.6-13.7 788-0) MCHC (MEAN CORPUSCULAR HEMOGLOBIN CONCENTRATI 33.8 g/dL 33 .0-37.0 (test code = 786-4) MCH (MEAN CORPUSCULAR HEMOGLOBIN) (test code = 28.6 pg 2 7.0-37.0 785-6) MCV (MEAN CORPUSCULAR VOLUME) (test code = 84.4 fL 80.0- 99.9 787-2) HCT (HEMATOCRIT) (test code = 4544-3) 42.9 % 35.0-60.0 HGB (HEMOGLOBIN) (test code = 718-7) 14.5 g/dL 11.0-18.0 RBC (test code = 789-8) 5.08 x10^6uL 4.00-6.00 GRANULOCYTE % (test code = 770-8) 4.5 x10^3uL 1.4-6.5 MONOCYTES (test code = 5905-5) 0.3 x10^3uL 0.1-0.6 LYMPHOCYTE % (test code = 736-9) 25.4 % 20.5-51.1 GRANULOCYTE # (test code = 751-8) 69.5 % 42.2-75.2 MONOCYTE # (test code = 742-7) 5.1 % 1.7-9.3 WBC (test code = 6690-2) 6.4 x10^3uL 4.5-10.5 Comp. Metabolic Panel (14)2013-08-17 00:00:00 Test Item Value Reference Range Comments ALT (SGPT) (test code = 1742-6) 38 [iU]/L 0-32 AST (SGOT) (test code = 1920-8) 24 [iU]/L 0-40 Alkaline Phosphatase, S (test code = 6768-6) 93 [iU]/L 39- 117 A/G Ratio (test code = 1759-0) 1.9 1.1-2.5 Bilirubin, Total (test code = 1975-2) 0.4 mg/dL 0.0-1.2 Globulin, Total (test code = 91776-9) 2.3 g/dL 1.5-4.5 Albumin, Serum (test code = 1751-7) 4.3 g/dL 3.6-4.8 Protein, Total, Serum (test code = 2885-2) 6.6 g/dL 6.0-8 .5 Calcium, Serum (test code = 06263-4) 9.6 mg/dL 8.6-10.2 Carbon Dioxide, Total (test code = 2027-9) 27 mmol/L 19-28 Chloride, Serum (test code = 5-0) 104 mmol/L 97-108 Potassium, Serum (test code = 2823-3) 4.2 mmol/L 3.5-5.2 Sodium, Serum (test code = 2951-2) 143 mmol/L 134-144 BUN/Creatinine Ratio (test code = 3097-3) 17 11-26 eGFR If Africn Am (test code = 41569-0) 109 mL/min/1.73 >59 eGFR If NonAfricn Am (test code = 79466-8) 94 mL/min/1.73 >59 BUN (test code = 3094-0) 11 mg/dL 8-27 Creatinine, Serum (test code = 2160-0) 0.66 mg/dL 0.57-1.00 Glucose, Serum (test code = 2345-7) 97 mg/dL 65-99 PATIENT NOT FASTING PERFORMED BY: [facility] [id number] 00:00:00 Test Item Value Reference Range Comments LDL Cholesterol Calc (test code 79 mg/dL 0-99 = 07238-6) VLDL Cholesterol Erasto (test code 21 mg/dL 5-40 = 13764-3) HDL Cholesterol (test code = 54 mg/dL >39 Acc ording to ATP-III 5-9) Guidelines, HDL- C >59 mg/dL is considered a negative risk factor for CHD. Triglycerides (test code = 105 mg/dL 0-149 2571-8) Cholesterol, Total (test code = 154 mg/dL 979-020 4284-3) PATIENT NOT FASTING PERFORMED BY: [facility] [address] [id number] 00:00:00 Test Item Value Reference Range Comments TSH (test code = 54121-4) 1.880 uIU/mL 0.450-4.500 PATIENT NOT FASTING PERFORMED BY: [facility] [address] [id number] D, [id number] 00:00:00 Test Item Value Reference Range Comments Vitamin D, 25-Hydroxy 48.1 ng/mL 30.0-100.0 Vitamin D deficiency has been (test code = 64050-0) defined by the [place] [employer] and an Endocrine Society practice guideline as a level of serum 2 5-OH vitamin D less than 20 ng/ mL (1,2). The Endocrine Societ y went on to further define v itamin D insufficiency as a level between 21 and 29 ng/mL (2). 1. IOM ([place]). 2010. Dietary referenc e intakes for calcium and D. [place]: The [employer]. 2. Violetta MF, Nalini gomez [place], Layla PATRICK, et al. Evaluation, na tment, and prevention of vi tamin D deficiency: an E ndocrine Society clinical practic e guideline. JCEM. 2010; 96(7):1911-30. PATIENT NOT FASTING PERFORMED BY: [facility] [id number] HEALTH PANEL (ECWC-CBC,CMP,TSH) ([id number])2013-08-17 00:00:00 Test Item Value Reference Range Comments MONOCYTES (test code = 5905-5) 0.4 x10^3uL 0.1-0.6 CBC COMMENTS (test code = 07401-4) . C AMW MPV (test code = 776-5) 9.0 fL 7.8-11.0 BLOOD COUNT, PLATELET, AUTOMATED (test code = 224 x10^3uL 15 0-400 777-3) RDW (RED CELL DISTRIBUTION WIDTH) (test code = 10.8 % 1 1.6-13.7 788-0) MCHC (MEAN CORPUSCULAR HEMOGLOBIN CONCENTRATI 35.5 g/dL 33 .0-37.0 (test code = 786-4) MCH (MEAN CORPUSCULAR HEMOGLOBIN) (test code = 29.3 pg 2 7.0-37.0 785-6) MCV (MEAN CORPUSCULAR VOLUME) (test code = 82.5 fL 80.0- 99.9 787-2) HCT (HEMATOCRIT) (test code = 4544-3) 40.8 % 35.0-60.0 HGB (HEMOGLOBIN) (test code = 718-7) 14.5 g/dL 11.0-18.0 RBC (test code = 789-8) 4.94 x10^6uL 4.00-6.00 GRANULOCYTE % (test code = 770-8) 3.9 x10^3uL 1.4-6.5 LYMPHOCYTE % (test code = 736-9) 25.8 % 20.5-51.1 GRANULOCYTE # (test code = 751-8) 68.9 % 42.2-75.2 MONOCYTE # (test code = 742-7) 5.3 % 1.7-9.3 WBC (test code = 6690-2) 5.7 x10^3uL 4.5-10.5 URINALYSIS, AUTOMATED, W/O MICRO ([id number])2013-03-10 00:00:00 Test Item Value Reference Range Comments UA - APPEARANCE (test code = 5767-9) Clear UA - BILIRUBIN (test code = 5770-3) Negative UA - BLOOD (test code = 5794-3) Negative UA - COLOR (test code = 5778-6) Yellow UA - COMMENTS (test code = UA - COMMENTS) . bhg UA - GLUCOSE (test code = 5792-7) Negative UA - KETONES (test code = 2514-8) Negative UA - LEUKOCYTE ESTERASE (test code = 5799-2) Negative UA - NITRITE (test code = 5802-4) Negative UA - PH (test code = 5803-2) 5.0 4.6-8.0 UA - PROTEIN (test code = 27754-0) Negative UA - SPECIFIC GRAVITY (test code = 2965-2) 1.025 1.001 -1.035 UA - URO (test code = UA - URO) 0.2 mg/dL Comp. Metabolic Panel (14)2013-02-24 00:00:00 Test Item Value Reference Range Comments ALT (SGPT) (test code = 1742-6) 32 [iU]/L 0-32 AST (SGOT) (test code = 1920-8) 26 [iU]/L 0-40 Alkaline Phosphatase, S (test code = 6768-6) 97 [iU]/L 47- 112 Bilirubin, Total (test code = 1975-2) 0.4 mg/dL 0.0-1.2 A/G Ratio (test code = 1759-0) 1.9 1.1-2.5 Globulin, Total (test code = 16480-3) 2.3 g/dL 1.5-4.5 Albumin, Serum (test code = 1751-7) 4.4 g/dL 3.6-4.8 Protein, Total, Serum (test code = 2885-2) 6.7 g/dL 6.0-8 .5 Calcium, Serum (test code = 71488-4) 9.7 mg/dL 8.6-10.2 Carbon Dioxide, Total (test code = 8-9) 22 mmol/L 19-28 Chloride, Serum (test code = 2075-0) 102 mmol/L 97-108 Potassium, Serum (test code = 2823-3) 4.8 mmol/L 3.5-5.2 Sodium, Serum (test code = 2951-2) 141 mmol/L 134-144 BUN/Creatinine Ratio (test code = 3097-3) 24 11-26 eGFR If Africn Am (test code = 38802-3) 112 mL/min/1.73 >59 Creatinine, Serum (test code = 2160-0) 0.62 mg/dL 0.57-1.00 eGFR If NonAfricn Am (test code = 66667-3) 97 mL/min/1.73 >59 BUN (test code = 3094-0) 15 mg/dL 8-27 Glucose, Serum (test code = 2345-7) 86 mg/dL 65-99 PATIENT WAS FASTING PERFORMED BY: [facility] [id number] 00:00:00 Test Item Value Reference Range Comments LDL Cholesterol Calc (test code 98 mg/dL 0-99 = 15043-5) HDL Cholesterol (test code = 67 mg/dL >39 Acc ording to ATP-III 5-9) Guidelines, HDL- C >59 mg/dL is considered a negative risk factor for CHD. VLDL Cholesterol Erasto (test code 22 mg/dL 5-40 = 54839-0) Cholesterol, Total (test code = 187 mg/dL 279-497 8901-3) Triglycerides (test code = 110 mg/dL 0-149 2571-8) PATIENT WAS FASTING PERFORMED BY: [facility] [address] [id number] 00:00:00 Test Item Value Reference Range Comments TSH (test code = 52031-8) 1.950 uIU/mL 0.450-4.500 PATIENT WAS FASTING PERFORMED BY: [facility] [id number] D, [id number] 00:00:00 Test Item Value Reference Range Comments Vitamin D, 25-Hydroxy 40.9 ng/mL 30.0-100.0 Vitamin D deficiency has been (test code = 69992-3) defined by the [place] [employer] and an Endocrine Society practice guideline as a level of serum 2 5-OH vitamin D less than 20 ng/ mL (1,2). The Endocrine Societ y went on to further define v itamin D insufficiency as a level between 21 and 29 ng/mL (2). 1. IOM ([place]). 2010. Dietary referenc e intakes for calcium and D. [place]: [employer]. 2. Violetta MF, Nalini gomez [place], Layla PATRICK, et al. Evaluation, na tment, and prevention of vi tamin D deficiency: an E ndocrine Society clinical practic e guideline. JCEM. 2010; 96(7):1911-30. PATIENT WAS FASTING PERFORMED BY: [facility] [id number] HEALTH PANEL (ECWC-CBC,CMP,TSH) ([id number])2013-02-24 00:00:00 Test Item Value Reference Range Comments CBC COMMENTS (test code = 13909-1) . C sht MPV (test code = 776-5) 9.3 fL 7.8-11.0 BLOOD COUNT, PLATELET, AUTOMATED (test code = 222 x10^3uL 15 0-400 777-3) RDW (RED CELL DISTRIBUTION WIDTH) (test code = 10.2 % 1 1.6-13.7 788-0) MCHC (MEAN CORPUSCULAR HEMOGLOBIN CONCENTRATI 34.2 g/dL 33 .0-37.0 (test code = 786-4) MCH (MEAN CORPUSCULAR HEMOGLOBIN) (test code = 29.3 pg 2 7.0-37.0 785-6) MCV (MEAN CORPUSCULAR VOLUME) (test code = 85.6 fL 80.0- 99.9 787-2) HCT (HEMATOCRIT) (test code = 4544-3) 41.9 % 35.0-60.0 HGB (HEMOGLOBIN) (test code = 718-7) 14.3 g/dL 11.0-18.0 RBC (test code = 789-8) 4.90 x10^6uL 4.00-6.00 GRANULOCYTE % (test code = 770-8) 3.6 x10^3uL 1.4-6.5 MONOCYTES (test code = 5905-5) 0.3 x10^3uL 0.1-0.6 LYMPHOCYTE % (test code = 736-9) 28.7 % 20.5-51.1 GRANULOCYTE # (test code = 751-8) 64.9 % 42.2-75.2 MONOCYTE # (test code = 742-7) 6.4 % 1.7-9.3 WBC (test code = 6690-2) 5.5 x10^3uL 4.5-10.5 Comp. Metabolic Panel (14)2012-08-24 00:00:00 Test Item Value Reference Range Comments ALT (SGPT) (test code = 1742-6) 33 [iU]/L 0-32 AST (SGOT) (test code = 1920-8) 19 [iU]/L 0-40 Alkaline Phosphatase, S (test code = 6768-6) 97 [iU]/L 25- 165 Bilirubin, Total (test code = 1975-2) 0.5 mg/dL 0.0-1.2 A/G Ratio (test code = 1759-0) 1.9 1.1-2.5 Globulin, Total (test code = 24482-6) 2.2 g/dL 1.5-4.5 Albumin, Serum (test code = 1751-7) 4.1 g/dL 3.6-4.8 Protein, Total, Serum (test code = 2885-2) 6.3 g/dL 6.0-8 .5 Calcium, Serum (test code = 22828-8) 9.1 mg/dL 8.6-10.2 Carbon Dioxide, Total (test code = 2027-9) 25 mmol/L 20-32 Chloride, Serum (test code = 5-0) 103 mmol/L 97-108 Potassium, Serum (test code = 2823-3) 4.1 mmol/L 3.5-5.2 Sodium, Serum (test code = 2951-2) 141 mmol/L 134-144 BUN/Creatinine Ratio (test code = 3097-3) 22 11-26 eGFR If Africn Am (test code = 72418-3) 117 mL/min/1.73 >59 eGFR If NonAfricn Am (test code = 70457-0) 101 mL/min/1.73 >59 Creatinine, Serum (test code = 2160-0) 0.54 mg/dL 0.57-1.00 BUN (test code = 3094-0) 12 mg/dL 8-27 Glucose, Serum (test code = 2345-7) 89 mg/dL 65-99 PATIENT WAS FASTING PERFORMED BY: [facility] [id number] 00:00:00 Test Item Value Reference Range Comments HDL Cholesterol (test code = 64 mg/dL >39 Acc ording to ATP-III 2085-9) Guidelines, HDL- C >59 mg/dL is considered a negative risk factor for CHD. LDL Cholesterol Calc (test code 81 mg/dL 0-99 = 63101-0) VLDL Cholesterol Erasto (test code 24 mg/dL 5-40 = 04469-8) Triglycerides (test code = 122 mg/dL 0-149 2571-8) Cholesterol, Total (test code = 169 mg/dL 839-678 1731-3) PATIENT WAS FASTING PERFORMED BY: [facility] [id number] 00:00:00 Test Item Value Reference Range Comments TSH (test code = 51009-5) 1.660 uIU/mL 0.450-4.500 PATIENT WAS FASTING PERFORMED BY: [facility] [id number] D, [id number] 00:00:00 Test Item Value Reference Range Comments Vitamin D, 25-Hydroxy 25.0 ng/mL 30.0-100.0 Vitamin D deficiency has been (test code = 28396-9) defined by the [place] [employer] and an Endocrine Society practice guideline as a level of serum 2 5-OH vitamin D less than 20 ng/ mL (1,2). The Endocrine Societ y went on to further define v itamin D insufficiency as a level between 21 and 29 ng/mL (2). 1. IOM ([place] [employer]). 2010. Dietary referenc e intakes for calcium and D. [place]: [employer]. 2. Violetta MF, Nalini DE SOUZA, Layla PATRICK, et al. Evaluation, na tment, and prevention of vi tamin D deficiency: an E ndocrine Society clinical practic e guideline. JCEM. 2010; 96(7):1911-30. PATIENT WAS FASTING PERFORMED BY: [address] [id number] HEALTH PANEL (ECWC-CBC,CMP,TSH) ([id number])2012-08-24 00:00:00 Test Item Value Reference Range Comments CBC COMMENTS (test code = 95062-7) . C ag MPV (test code = 776-5) 7.5 fL 7.8-11.0 BLOOD COUNT, PLATELET, AUTOMATED (test code = 214 x10^3uL 15 0-400 777-3) RDW (RED CELL DISTRIBUTION WIDTH) (test code = 12.5 % 1 1.6-13.7 788-0) MCHC (MEAN CORPUSCULAR HEMOGLOBIN CONCENTRATI 33.9 g/dL 33 .0-37.0 (test code = 786-4) MCH (MEAN CORPUSCULAR HEMOGLOBIN) (test code = 29.2 pg 2 7.0-37.0 785-6) MCV (MEAN CORPUSCULAR VOLUME) (test code = 86.1 fL 80.0- 99.9 787-2) HCT (HEMATOCRIT) (test code = 4544-3) 41.6 % 35.0-60.0 HGB (HEMOGLOBIN) (test code = 718-7) 14.1 g/dL 11.0-18.0 RBC (test code = 789-8) 4.83 x10^6uL 4.00-6.00 GRANULOCYTE % (test code = 770-8) 4.0 x10^3uL 1.4-6.5 MONOCYTES (test code = 5905-5) 0.4 x10^3uL 0.1-0.6 LYMPHOCYTE % (test code = 736-9) 24.5 % 20.5-51.1 GRANULOCYTE # (test code = 751-8) 68.1 % 42.2-75.2 MONOCYTE # (test code = 742-7) 7.4 % 1.7-9.3 WBC (test code = 6690-2) 5.8 x10^3uL 4.5-10.5 URINALYSIS, AUTOMATED, W/O MICRO ([id number])2012-03-04 00:00:00 Test Item Value Reference Range Comments UA - LEUKOCYTE ESTERASE (test code = 5799-2) Negative UA - NITRITE (test code = 5802-4) Negative UA - URO (test code = UA - URO) 0.2 mg/dL UA - PROTEIN (test code = 52863-4) Negative UA - PH (test code = 5803-2) 5.0 4.6-8.0 UA - BLOOD (test code = 5794-3) Negative UA - SPECIFIC GRAVITY (test code = 2965-2) 1.025 1.001 -1.035 UA - KETONES (test code = 2514-8) Negative UA - BILIRUBIN (test code = 5770-3) Negative UA - GLUCOSE (test code = 5792-7) Negative UA - COLOR (test code = 5778-6) Yellow UA - APPEARANCE (test code = 5767-9) Clear Comp. Metabolic Panel (14)2012-02-26 00:00:00 Test Item Value Reference Range Comments ALT (SGPT) (test code = 23 [iU]/L 0-40 Effect tre March 07, 1742) 2011 the referen ce interval for A LT (SGPT) will be changing to: Male Female 0 - 11 ye ars 0 - 29 0 - 28 12 - 17 y ears 0 - 30 0 - 24 > 17 y ears 0 - 44 0 - 32 AST (SGOT) (test code = 19 [iU]/L 0-40 1920-8) Alkaline Phosphatase, S 92 [iU]/L 25-165 (test code = 6768-6) Bilirubin, Total (test code 0.6 mg/dL 0.0-1.2 = 1974-2) A/G Ratio (test code = 1.8 1.1-2.5 1759-0) Globulin, Total (test code 2.4 g/dL 1.5-4.5 = 41398-1) Albumin, Serum (test code = 4.4 g/dL 3.6-4.8 1751-7) Protein, Total, Serum (test 6.8 g/dL 6.0-8.5 code = 2885-2) Calcium, Serum (test code = 9.7 mg/dL 8.6-10.2 32646-6) Carbon Dioxide, Total (test 24 mmol/L 20-32 code = 2028-9) Chloride, Serum (test code 104 mmol/L 97-108 = 2075-0) Potassium, Serum (test code 4.5 mmol/L 3.5-5.2 = 2823-3) Sodium, Serum (test code = 142 mmol/L 782-248 0978-2) BUN/Creatinine Ratio (test 04-04 code = 3097-3) eGFR If Africn Am (test 110 mL/min/1.73 >59 code = 88565-4) eGFR If NonAfricn Am (test 96 mL/min/1.73 >59 code = 56410-6) Creatinine, Serum (test 0.66 mg/dL 0.57-1.00 code = 2160-0) BUN (test code = 3094-0) 14 mg/dL 8-27 Glucose, Serum (test code = 92 mg/dL 65-99 2345-7) PATIENT WAS FASTING PERFORMED BY: [facility] [address] [id number] 00:00:00 Test Item Value Reference Range Comments LDL Cholesterol Calc (test code 74 mg/dL 0-99 = 37830-8) VLDL Cholesterol Erasto (test code 22 mg/dL 5-40 = 25441-1) HDL Cholesterol (test code = 62 mg/dL >39 Acc ording to ATP-III 5-9) Guidelines, HDL- C >59 mg/dL is considered a negative risk factor for CHD. Triglycerides (test code = 110 mg/dL 0-149 2571-8) Cholesterol, Total (test code = 158 mg/dL 383-203 2618-3) PATIENT WAS FASTING PERFORMED BY: [facility] [address] [id number] 00:00:00 Test Item Value Reference Range Comments TSH (test code = 75576-9) 2.190 uIU/mL 0.450-4.500 PATIENT WAS FASTING PERFORMED BY: [facility] [address] [id number] D, [id number] 00:00:00 Test Item Value Reference Range Comments Vitamin D, 25-Hydroxy 40.0 ng/mL 30.0-100.0 Vitamin D deficiency has been (test code = 71872-3) defined by the [place] [employer] and an Endocrine Society practice guideline as a level of serum 2 5-OH vitamin D less than 20 ng/ mL (1,2). The Endocrine Societ y went on to further define v itamin D insufficiency as a level between 21 and 29 ng/mL (2). 1. IOM ([place]). 2010. Dietary referenc e intakes for calcium and D. [place]: [employer]. 2. Violetta MONTERROSO, Nalini DE SOUZA, Layla PATRICK, et al. Evaluation, na tment, and prevention of vi tamin D deficiency: an E ndocrine Society clinical practic e guideline. JCEM. 2010; 96(7):1911-30. PATIENT WAS FASTING PERFORMED BY: [facility] [address] [id number] HEALTH PANEL (ECWC-CBC,CMP,TSH) ([id number])2012-02-26 00:00:00 Test Item Value Reference Range Comments CBC COMMENTS (test code = 25023-3) . C ag MPV (test code = 776-5) 8.1 fL 7.8-11.0 BLOOD COUNT, PLATELET, AUTOMATED (test code = 205 x10^3uL 15 0-400 777-3) RDW (RED CELL DISTRIBUTION WIDTH) (test code = 12.1 % 1 1.6-13.7 788-0) MCHC (MEAN CORPUSCULAR HEMOGLOBIN CONCENTRATI 33.1 g/dL 33 .0-37.0 (test code = 786-4) MCH (MEAN CORPUSCULAR HEMOGLOBIN) (test code = 28.1 pg 2 7.0-37.0 785-6) MCV (MEAN CORPUSCULAR VOLUME) (test code = 84.9 fL 80.0- 99.9 787-2) HCT (HEMATOCRIT) (test code = 4544-3) 41.8 % 35.0-60.0 HGB (HEMOGLOBIN) (test code = 718-7) 13.8 g/dL 11.0-18.0 RBC (test code = 789-8) 4.93 x10^6uL 4.00-6.00 GRANULOCYTE % (test code = 770-8) 3.6 x10^3uL 1.4-6.5 MONOCYTES (test code = 5905-5) 0.5 x10^3uL 0.1-0.6 LYMPHOCYTE % (test code = 736-9) 25.7 % 20.5-51.1 GRANULOCYTE # (test code = 751-8) 67.6 % 42.2-75.2 MONOCYTE # (test code = 742-7) 6.7 % 1.7-9.3 WBC (test code = 6690-2) 5.4 x10^3uL 4.5-10.5 Comp. Metabolic Panel (14)2011-08-28 00:00:00 Test Item Value Reference Range Comments ALT (SGPT) (test code = 42 [iU]/L 0-40 1742-6) AST (SGOT) (test code = 23 [iU]/L 0-40 1920-8) Alkaline Phosphatase, S 99 [iU]/L 25-165 (test code = 6768-6) Bilirubin, Total (test 0.5 mg/dL 0.0-1.2 code = 1975-2) A/G Ratio (test code = 2.0 1.1-2.5 1759-0) Globulin, Total (test code 2.3 g/dL 1.5-4.5 = 10837-6) Albumin, Serum (test code 4.5 g/dL 3.6-4.8 = 1751-7) Protein, Total, Serum 6.8 g/dL 6.0-8.5 (test code = 2885-2) Calcium, Serum (test code 9.4 mg/dL 8.6-10.2 = 32635-1) Carbon Dioxide, Total 26 mmol/L 20-32 (test code = 2027-9) Chloride, Serum (test code 102 mmol/L 97-108 = 2075-0) Potassium, Serum (test 4.2 mmol/L 3.5-5.2 code = 2823-3) BUN/Creatinine Ratio (test 29 11- code = 3097-3) Sodium, Serum (test code = 140 mmol/L 293-356 2201-2) eGFR If Africn Am (test 116 mL/min/1.73 >59 Note: A persistent eGFR <60 code = eGFR If Africn Am) mL/min /1.73 m2 (3 months or more) may indica te chronic kidney disease. An eGFR >59 mL/min/1.73 m2 w ith an elevated urine p rotein also may indicate chr onic kidney disease. Calcula cliff using CKD-EPI formula. eGFR If NonAfricn Am (test 101 mL/min/1.73 >59 code = 25051-2) Creatinine, Serum (test 0.56 mg/dL 0.57-1.00 code = 2160-0) BUN (test code = 3094-0) 16 mg/dL 8-27 Glucose, Serum (test code 88 mg/dL 65-99 = 2345-7) PATIENT WAS FASTING PERFORMED BY: [facility] [id number] 00:00:00 Test Item Value Reference Range Comments LDL Cholesterol Calc (test code 62 mg/dL 0-99 = 29430-5) HDL Cholesterol (test code = 75 mg/dL >39 Acc ording to ATP-III 5-9) Guidelines, HDL- C >59 mg/dL is considered a negative risk factor for CHD. VLDL Cholesterol Erasto (test code 19 mg/dL 5-40 = 66692-3) Cholesterol, Total (test code = 156 mg/dL 910-660 4104-3) Triglycerides (test code = 95 mg/dL 0-149 2571-8) PATIENT WAS FASTING PERFORMED BY: [facility] [id number] 00:00:00 Test Item Value Reference Range Comments TSH (test code = 02859-4) 1.660 uIU/mL 0.450-4.500 PATIENT WAS FASTING PERFORMED BY: [facility] [id number] D, [id number] 00:00:00 Test Item Value Reference Range Comments Vitamin D, 25-Hydroxy 44.4 ng/mL 30.0-100.0 Vitamin D deficiency has been (test code = 87977-9) defined by the [place] [employer] and an Endocrine Society practice guideline as a level of serum 2 5-OH vitamin D less than 20 ng/ mL (1,2). The Endocrine Societ y went on to further define v itamin D insufficiency as a level between 21 and 29 ng/mL (2). 1. IOM ([place] d[employer]). 2010. Dietary referenc e intakes for calcium and D. [place]: [employer]. 2. Violetta MF, Nalini DE SOUZA, Layla PATRICK, et al. Evaluation, na tment, and prevention of vi tamin D deficiency: an E ndocrine Society clinical practic e guideline. JCEM. 2010; 96(7):1911-30. PATIENT WAS FASTING PERFORMED BY: [facility] [id number] HEALTH PANEL (ECWC-CBC,CMP,TSH) ([id number])2011-08-28 00:00:00 Test Item Value Reference Range Comments CBC COMMENTS (test code = 32354-6) . C mef MPV (test code = 776-5) 8.3 fL 7.8-11.0 BLOOD COUNT, PLATELET, AUTOMATED (test code = 215 x10^3uL 15 0-400 777-3) RDW (RED CELL DISTRIBUTION WIDTH) (test code = 11.5 % 1 1.6-13.7 788-0) MCHC (MEAN CORPUSCULAR HEMOGLOBIN CONCENTRATI 34.4 g/dL 33 .0-37.0 (test code = 786-4) MCH (MEAN CORPUSCULAR HEMOGLOBIN) (test code = 29.1 pg 2 7.0-37.0 785-6) MCV (MEAN CORPUSCULAR VOLUME) (test code = 84.6 fL 80.0- 99.9 787-2) HCT (HEMATOCRIT) (test code = 4544-3) 41.3 % 35.0-60.0 HGB (HEMOGLOBIN) (test code = 718-7) 14.2 g/dL 11.0-18.0 RBC (test code = 789-8) 4.88 x10^6uL 4.00-6.00 GRANULOCYTE % (test code = 770-8) 4.1 x10^3uL 1.4-6.5 MONOCYTES (test code = 5905-5) 0.4 x10^3uL 0.1-0.6 LYMPHOCYTE % (test code = 736-9) 26.1 % 20.5-51.1 GRANULOCYTE # (test code = 751-8) 67.1 % 42.2-75.2 MONOCYTE # (test code = 742-7) 6.8 % 1.7-9.3 WBC (test code = 6690-2) 6.1 x10^3uL 4.5-10.5 URINALYSIS, AUTOMATED, W/O MICRO ([id number])2011-02-27 00:00:00 Test Item Value Reference Range Comments UA - LEUKOCYTE ESTERASE (test code = 5799-2) Negative UA - NITRITE (test code = 5802-4) Negative UA - PROTEIN (test code = 64459-0) Negative UA - BILIRUBIN (test code = 5770-3) Negative UA - BLOOD (test code = 5794-3) Negative UA - PH (test code = 5803-2) 7.0 4.6-8.0 UA - SPECIFIC GRAVITY (test code = 2965-2) 1.015 1.001 -1.035 UA - KETONES (test code = 2514-8) Negative UA - GLUCOSE (test code = 5792-7) Negative UA - COLOR (test code = 5778-6) Yellow UA - APPEARANCE (test code = 5767-9) Clear Comp. Metabolic Panel (14)2011-02-16 00:00:00 Test Item Value Reference Range Comments ALT (SGPT) (test code = 47 [iU]/L 0-40 1742-6) AST (SGOT) (test code = 24 [iU]/L 0-40 1920-8) Alkaline Phosphatase, S 100 [iU]/L 25-165 (test code = 6768-6) Bilirubin, Total (test 0.6 mg/dL 0.0-1.2 code = 1975-2) A/G Ratio (test code = 1.8 1.1-2.5 1759-0) Globulin, Total (test code 2.5 g/dL 1.5-4.5 = 32557-5) Albumin, Serum (test code 4.5 g/dL 3.6-4.8 = 1751-7) Protein, Total, Serum 7.0 g/dL 6.0-8.5 (test code = 2885-2) Calcium, Serum (test code 9.3 mg/dL 8.6-10.2 = 48291-9) Carbon Dioxide, Total 25 mmol/L 20-32 (test code = 8-9) Chloride, Serum (test code 102 mmol/L 97-108 = 2075-0) Potassium, Serum (test 3.9 mmol/L 3.5-5.2 code = 2823-3) Sodium, Serum (test code = 139 mmol/L 539-742 3796-2) BUN/Creatinine Ratio (test 04-04 code = 3097-3) eGFR If Africn Am (test 118 mL/min/1.73 >59 Note: A persistent eGFR <60 code = eGFR If Africn Am) mL/min /1.73 m2 (3 months or more) may indica te chronic kidney disease. An eGFR >59 mL/min/1.73 m2 w ith an elevated urine p rotein also may indicate chr onic kidney disease. Calcula cliff using CKD-EPI formula. eGFR If NonAfricn Am (test 102 mL/min/1.73 >59 code = 75261-3) Creatinine, Serum (test 0.55 mg/dL 0.57-1.00 code = 2160-0) BUN (test code = 3094-0) 10 mg/dL 8-27 Glucose, Serum (test code 87 mg/dL 65-99 = 2345-7) PATIENT WAS FASTING PERFORMED BY: [facility] [address] [id number] 00:00:00 Test Item Value Reference Range Comments LDL Cholesterol Calc (test code 88 mg/dL 0-99 = 54631-5) VLDL Cholesterol Erasto (test code 28 mg/dL 5-40 = 07933-5) HDL Cholesterol (test code = 78 mg/dL >39 Acc ording to ATP-III 5-9) Guidelines, HDL- C >59 mg/dL is considered a negative risk factor for CHD. Cholesterol, Total (test code = 194 mg/dL 194-936 4810-3) Triglycerides (test code = 142 mg/dL 0-149 2571-8) PATIENT WAS FASTING PERFORMED BY: [facility] [address] [id number] 00:00:00 Test Item Value Reference Range Comments TSH (test code = 34571-2) 1.540 uIU/mL 0.450-4.500 PATIENT WAS FASTING PERFORMED BY: [facility] [address] [id number], [id number] 00:00:00 Test Item Value Reference Range Comments Vitamin D, 25-Hydroxy (test 16.2 ng/mL 32.0-100.0 E ffective March 30, 2011 code = 1989-3) Vitamin D, 25-Hy droxy reference interv als will be changing to 30-1 00. . Recent studies consider the lower limit of 32.0 ng /mL to be a threshold for [facility]. Rajeev aleman. 2004;135(2):317-2 2. PATIENT WAS FASTING PERFORMED BY: [facility] [id number] HEALTH PANEL (ECWC-CBC,CMP,TSH) ([id number])2011-02-16 00:00:00 Test Item Value Reference Range Comments CBC COMMENTS (test code = 62380-2) . C SHT MPV (test code = 776-5) 8.7 fL 7.8-11.0 BLOOD COUNT, PLATELET, AUTOMATED (test code = 197 x10^3uL 15 0-400 777-3) RDW (RED CELL DISTRIBUTION WIDTH) (test code = 13.6 % 1 1.6-13.7 788-0) MCHC (MEAN CORPUSCULAR HEMOGLOBIN CONCENTRATI 33.5 g/dL 33 .0-37.0 (test code = 786-4) MCH (MEAN CORPUSCULAR HEMOGLOBIN) (test code = 28.6 pg 2 7.0-37.0 785-6) MCV (MEAN CORPUSCULAR VOLUME) (test code = 85.4 fL 80.0- 99.9 787-2) HCT (HEMATOCRIT) (test code = 4544-3) 42.0 % 35.0-60.0 HGB (HEMOGLOBIN) (test code = 718-7) 14.0 g/dL 11.0-18.0 RBC (test code = 789-8) 4.91 x10^6uL 4.00-6.00 GRANULOCYTE % (test code = 770-8) 4.1 x10^3uL 1.4-6.5 MONOCYTES (test code = 5905-5) 0.4 x10^3uL 0.1-0.6 LYMPHOCYTE % (test code = 736-9) 25.3 % 20.5-51.1 GRANULOCYTE # (test code = 751-8) 68.5 % 42.2-75.2 MONOCYTE # (test code = 742-7) 6.2 % 1.7-9.3 WBC (test code = 6690-2) 6.0 x10^3uL 4.5-10.5 Comp. Metabolic Panel (14)2010-02-21 00:00:00 Test Item Value Reference Range Comments ALT (SGPT) (test code = 1742-6) 46 [iU]/L 0-40 AST (SGOT) (test code = 1920-8) 29 [iU]/L 0-40 A/G Ratio (test code = 1759-0) 2.1 1.1-2.5 Alkaline Phosphatase, S (test 109 [iU]/L 25-150 code = 6768-6) Bilirubin, Total (test code = 0.5 mg/dL 0.0-1.2 1975-2) Globulin, Total (test code = 2.1 g/dL 1.5-4.5 36529-3) Albumin, Serum (test code = 4.4 g/dL 3.5-5.5 1751-7) Calcium, Serum (test code = 9.5 mg/dL 8.7-10.2 77310-0) Carbon Dioxide, Total (test 26 mmol/L 20-32 code = 2028-9) Chloride, Serum (test code = 103 mmol/L 97-108 2075-0) Potassium, Serum (test code = 4.2 mmol/L 3.5-5.2 2823-3) Protein, Total, Serum (test 6.5 g/dL 6.0-8.5 code = 2885-2) BUN/Creatinine Ratio (test code 23 8- = 3097-3) Sodium, Serum (test code = 140 mmol/L 354-063 4751-2) Creatinine, Serum (test code = 0.61 mg/dL 0.57-1.00 2160-0) eGFR (test code = eGFR) >59 >59 eGFR AfricanAmerican (test code >59 >59 Note: Persistent reduction = eGFR AfricanAmerican) for 3 mo nths or more in an eGFR <60 mL/min/ 1.73 m2 defines CKD. Pat ients with eGFR values >/=6 0 mL/min/1.73 m2 m ay also have CKD if evid ence of persistent prote inuria is present. Additio nal information may be found at [email or web address]. BUN (test code = 3094-0) 14 mg/dL 5-26 Glucose, Serum (test code = 84 mg/dL 65-99 2345-7) PATIENT WAS FASTING PERFORMED BY: [facility] [address] [id number] 00:00:00 Test Item Value Reference Range Comments LDL Cholesterol Calc (test code 76 mg/dL 0-99 = 60873-2) HDL Cholesterol (test code = 59 mg/dL >39 Acc ording to ATP-III 2085-9) Guidelines, HDL- C >59 mg/dL is considered a negative risk factor for CHD. VLDL Cholesterol Erasto (test code 17 mg/dL 5-40 = 16743-9) Cholesterol, Total (test code = 152 mg/dL 800-312 9261-3) Triglycerides (test code = 86 mg/dL 0-149 2571-8) PATIENT WAS FASTING PERFORMED BY: [facility] [address] [id number] D, [id number] 00:00:00 Test Item Value Reference Range Comments Vitamin D, 25-Hydroxy (test 40.7 ng/mL 32.0-100.0 Rece nt studies consider the code = 1988-07) lower limit of 3 2.0 ng/mL to be a threshold f or optimal health. Rajeev Haynes W. J Nutr. 2005 Jun;135(2): 317-22. PATIENT WAS FASTING PERFORMED BY: [employer] [id number], AUTOMATED, W/O MICRO ([id number]) 2009-08-30 00:00:00 Test Item Value Reference Range Comments UA - LEUKOCYTE ESTERASE (test code = 5799-2) NEG UA - REDUCING SUBSTANCE (test code = 68024-2) 0.2 UA - NITRITE (test code = 5802-4) NEG UA - PROTEIN (test code = 24544-6) NEG UA - BILIRUBIN (test code = 5770-3) NEG UA - BLOOD (test code = 5794-3) NEG UA - PH (test code = 5803-2) 6.0 4.6-8.0 UA - SPECIFIC GRAVITY (test code = 2965-2) 1.020 1.001 -1.035 UA - KETONES (test code = 2514-8) NEG UA - GLUCOSE (test code = 5792-7) NEG UA - COLOR (test code = 5778-6) YELLOW UA - APPEARANCE (test code = 5767-9) CLEAR Comp. Metabolic Panel (14)2009-08-23 00:00:00 Test Item Value Reference Range Comments Alkaline Phosphatase, S (test 91 [iU]/L 25-150 code = 6768-6) ALT (SGPT) (test code = 1742-6) 26 [iU]/L 0-40 AST (SGOT) (test code = 1920-8) 20 [iU]/L 0-40 Bilirubin, Total (test code = 0.5 mg/dL 0.1-1.2 Effective September 02, 2009, 1975-2) Bilirubin, Total , reference interv al will be changing to: mg/ dL Newborns, term a nd near term: 24 hours o ld: 0.0 - 8.0 48 hours old : 0.0 - 13.2 72 hours ol d: 0.0 - 15.6 96 hours to 1 month old: 0.0 - 16.6 Children 1 month and older and Adults: 0.0 - 1.2 . *Mueller ic value will be changed such that results* >17.0 m g/dL will be called as mueller ics. A/G Ratio (test code = 1759-0) 1.6 1.1-2.5 Globulin, Total (test code = 2.7 g/dL 1.5-4.5 79452-7) Albumin, Serum (test code = 4.4 g/dL 3.5-5.5 1751-7) Calcium, Serum (test code = 9.6 mg/dL 8.7-10.2 26179-5) Carbon Dioxide, Total (test 25 mmol/L 20-32 code = 8-9) Chloride, Serum (test code = 100 mmol/L 97-108 2075-0) Potassium, Serum (test code = 4.0 mmol/L 3.5-5.2 2823-3) Protein, Total, Serum (test 7.1 g/dL 6.0-8.5 code = 2885-2) BUN/Creatinine Ratio (test code 01-03 = 3097-3) Creatinine, Serum (test code = 0.62 mg/dL 0.57-1.00 2160-0) eGFR (test code = eGFR) >59 >59 eGFR AfricanAmerican (test code >59 >59 Note: Persistent reduction = eGFR AfricanAmerican) for 3 mo nths or more in an eGFR <60 mL/min/ 1.73 m2 defines CKD. Pat ients with eGFR values >/=6 0 mL/min/1.73 m2 m ay also have CKD if evid ence of persistent prote inuria is present. Additio nal information may be found at [email or web address]. Sodium, Serum (test code = 141 mmol/L 022-597 2399-2) BUN (test code = 3094-0) 13 mg/dL 5-26 Glucose, Serum (test code = 92 mg/dL 65-99 2345-7) PATIENT WAS FASTING PERFORMED BY: [facility] [address] [id number] 00:00:00 Test Item Value Reference Range Comments HDL Cholesterol (test code = 59 mg/dL >39 Acc ording to ATP-III 2084-9) Guidelines, HDL- C >59 mg/dL is considered a negative risk factor for CHD. LDL Cholesterol Calc (test code 63 mg/dL 0-99 = 06566-4) Triglycerides (test code = 100 mg/dL 0-149 2571-8) VLDL Cholesterol Erasto (test code 20 mg/dL 5-40 = 81302-3) Cholesterol, Total (test code = 142 mg/dL 435-201 6675-3) PATIENT WAS FASTING PERFORMED BY: [facility] [address] [id number] 00:00:00 Test Item Value Reference Range Comments TSH (test code = 17987-4) 2.080 uIU/mL 0.450-4.500 PATIENT WAS FASTING PERFORMED BY: [facility] [address] [id number] D, [id number] 00:00:00 Test Item Value Reference Range Comments Vitamin D, 25-Hydroxy (test 14.9 ng/mL 32.0-100.0 Rece nt studies consider the code = 1988-) lower limit of 3 2.0 ng/mL to be a threshold f or optimal health. Boo B W. J Nutr. 2005 Feb;135(2): 317-22. PATIENT WAS FASTING PERFORMED BY: [facility] [address] [id number] HEALTH PANEL (ECWC-CBC,CMP,TSH) ([id number])2009-08-23 00:00:00 Test Item Value Reference Range Comments CBC COMMENTS (test code = 33436-5) . C mef MPV (test code = 776-5) 8.6 fL 7.8-11.0 BLOOD COUNT, PLATELET, AUTOMATED (test code = 235 x10^3uL 15 0-400 777-3) RDW (RED CELL DISTRIBUTION WIDTH) (test code = 12.4 % 1 1.6-13.7 788-0) MCHC (MEAN CORPUSCULAR HEMOGLOBIN CONCENTRATI 33.8 g/dL 33 .0-37.0 (test code = 786-4) MCH (MEAN CORPUSCULAR HEMOGLOBIN) (test code = 28.6 pg 2 7.0-37.0 785-6) MCV (MEAN CORPUSCULAR VOLUME) (test code = 84.7 fL 80.0- 99.9 787-2) HCT (HEMATOCRIT) (test code = 4544-3) 40.3 % 35.0-60.0 HGB (HEMOGLOBIN) (test code = 718-7) 13.6 g/dL 11.0-18.0 RBC (test code = 789-8) 4.76 x10^6uL 4.00-6.00 GRANULOCYTE % (test code = 770-8) 4.1 x10^3uL 1.4-6.5 MONOCYTES (test code = 5905-5) 0.4 x10^3uL 0.1-0.6 LYMPHOCYTE % (test code = 736-9) 25.8 % 20.5-51.1 GRANULOCYTE # (test code = 751-8) 68.8 % 42.2-75.2 MONOCYTE # (test code = 742-7) 5.4 % 1.7-9.3 WBC (test code = 6690-2) 6.0 x10^3uL 4.5-10.5 Comp. Metabolic Panel (14)2009-02-08 00:00:00 Test Item Value Reference Range Comments Alkaline Phosphatase, S (test 103 [iU]/L 25-150 code = 6768-6) ALT (SGPT) (test code = 1742-6) 42 [iU]/L 0-40 AST (SGOT) (test code = 1920-8) 21 [iU]/L 0-40 Bilirubin, Total (test code = 0.5 mg/dL 0.1-1.2 1974-2) A/G Ratio (test code = 1759-0) 1.8 1.1-2.5 Albumin, Serum (test code = 4.4 g/dL 3.5-5.5 1751-7) Globulin, Total (test code = 2.5 g/dL 1.5-4.5 28304-2) Calcium, Serum (test code = 9.7 mg/dL 8.5-10.6 57568-6) Carbon Dioxide, Total (test 22 mmol/L 20-32 code = 2028-9) Chloride, Serum (test code = 101 mmol/L 97-108 2075-0) Potassium, Serum (test code = 4.1 mmol/L 3.5-5.2 2823-3) Protein, Total, Serum (test 6.9 g/dL 6.0-8.5 code = 2885-2) BUN/Creatinine Ratio (test code 01-03 = 3097-3) eGFR AfricanAmerican (test code >59 >59 Note: Persistent reduction = eGFR AfricanAmerican) for 3 mo nths or more in an eGFR <60 mL/min/ 1.73 m2 defines CKD. Pat ients with eGFR values >/=6 0 mL/min/1.73 m2 m ay also have CKD if evid ence of persistent prote inuria is present. Additio nal information may be found at [email or web address]. Sodium, Serum (test code = 138 mmol/L 136-816 5399-2) BUN (test code = 3094-0) 15 mg/dL 5-26 Creatinine, Serum (test code = 0.61 mg/dL 0.57-1.00 2160-0) eGFR (test code = eGFR) >59 >59 Glucose, Serum (test code = 81 mg/dL 65-99 2345-7) PATIENT WAS FASTING PERFORMED BY: [facility] [id number] 00:00:00 Test Item Value Reference Range Comments LDL Cholesterol Calc (test code 98 mg/dL 0-99 = 20932-3) VLDL Cholesterol Erasto (test code 32 mg/dL 5-40 = 72138-3) Cholesterol, Total (test code = 193 mg/dL 461-607 8526-3) HDL Cholesterol (test code = 63 mg/dL >39 Acc ording to ATP-III 2084-9) Guidelines, HDL- C >59 mg/dL is considered a negative risk factor for CHD. Triglycerides (test code = 160 mg/dL 0-149 2571-8) PATIENT WAS FASTING PERFORMED BY: [facility] [address] [id number], AUTOMATED, W/O MICRO ([id number]) 2008-08-24 00:00:00 Test Item Value Reference Range Comments UA - COMMENTS (test code = UA - COMMENTS) . UA - LEUKOCYTE ESTERASE (test code = 5799-2) NEG UA - REDUCING SUBSTANCE (test code = 06817-9) . UA - URINE SEDIMENT (test code = 13217-1) . UA - APPEARANCE (test code = 5767-9) CLEAR UA - BILIRUBIN (test code = 5770-3) NEG UA - BLOOD (test code = 5794-3) NEG UA - COLOR (test code = 5778-6) YELLOW UA - GLUCOSE (test code = 5792-7) NEG UA - KETONES (test code = 2514-8) NEG UA - NITRITE (test code = 5802-4) NEG UA - PH (test code = 5803-2) NEG 4.6-8.0 UA - PROTEIN (test code = 24394-5) NEG UA - SPECIFIC GRAVITY (test code = 2965-2) NEG 1.001 -1.035 C-Reactive Protein, [id number] 00:00:00 Test Item Value Reference Range Comments C-Reactive Protein, 1.13 mg/L 0.00-3.00 Relative Ris k for Future Cardiac (test code = Cardiovascu lar Event Low <1.00 C-Reactive Protein, Average 1.00 - 3.00 High >3.00 Cardiac) PATIENT NOT FASTINGSedimentation [id number] 00:00:00 Test Item Value Reference Range Comments Sedimentation Rate-Westergren (test code = 1 mm/h 0-30 Sedimentation Rate-Westergren) PATIENT NOT FASTING PERFORMED BY: [facility] [id number]. Metabolic Panel (14)2008-07-20 00:00:00 Test Item Value Reference Range Comments A/G Ratio (test code = A/G 1.7 1.1-2.5 Ratio) Albumin, Serum (test code = 4.5 g/dL 3.5-5.5 Albumin, Serum) Alkaline Phosphatase, S 95 [iU]/L 25-150 (test code = Alkaline Phosphatase, S) ALT (SGPT) (test code = ALT 25 [iU]/L 0-40 (SGPT)) AST (SGOT) (test code = AST 20 [iU]/L 0-40 (SGOT)) Bilirubin, Total (test code 0.5 mg/dL 0.1-1.2 = Bilirubin, Total) BUN (test code = BUN) 14 mg/dL 5-26 BUN/Creatinine Ratio (test 22 8-27 code = BUN/Creatinine Ratio) Calcium, Serum (test code = 9.4 mg/dL 8.5-10.6 Calcium, Serum) Carbon Dioxide, Total (test 24 mmol/L 20-32 code = Carbon Dioxide, Total) Chloride, Serum (test code = 103 mmol/L 97-108 Chloride, Serum) Creatinine, Serum (test code 0.65 mg/dL 0.57-1.00 = Creatinine, Serum) Globulin, Total (test code = 2.7 g/dL 1.5-4.5 Globulin, Total) Glom Filt Rate, Est (test >59 >59 code = Glom Filt Rate, Est) Glucose, Serum (test code = 86 mg/dL 65-99 Glucose, Serum) If -Turkish (test >59 >59 Note: Persistent reduction for code = If -Turkish) 3 mo nths or more in an eGFR <60 mL/min/1.73 m2 defines CKD. Patients wi th eGFR values >/=60 mL/min/1.7 3 m2 may also have CKD if evid ence of persistent prote inuria is present. Additio nal information may be found at [email or web address]. Potassium, Serum (test code 3.9 mmol/L 3.5-5.2 = Potassium, Serum) Protein, Total, Serum (test 7.2 g/dL 6.0-8.5 code = Protein, Total, Serum) Sodium, Serum (test code = 141 mmol/L 135-145 Sodium, Serum) PATIENT WAS FASTINGLipid [id number] 00:00:00 Test Item Value Reference Range Comments Cholesterol, Total (test code = 183 mg/dL 100-199 Cholesterol, Total) HDL Cholesterol (test code = 69 mg/dL >39 Acc ording to ATP-III HDL Cholesterol) Guidelines, HDL -C >59 mg/dL is considered a negative risk factor for CHD. LDL Cholesterol Calc (test code 92 mg/dL 0-99 = LDL Cholesterol Calc) Triglycerides (test code = 109 mg/dL 0-149 Triglycerides) VLDL Cholesterol Erasto (test code 22 mg/dL 5-40 = VLDL Cholesterol Erasto) PATIENT WAS [id number] 00:00:00 Test Item Value Reference Range Comments TSH (test code = TSH) 1.926 uIU/mL 0.450-4.500 PATIENT WAS FASTING PERFORMED BY: [facility] [id number]. Metabolic Panel (14)2008-01-20 00:00:00 Test Item Value Reference Range Comments A/G Ratio (test code = A/G 1.5 1.1-2.5 Ratio) Albumin, Serum (test code = 4.3 g/dL 3.5-5.5 Albumin, Serum) Alkaline Phosphatase, S 91 [iU]/L 25-150 (test code = Alkaline Phosphatase, S) ALT (SGPT) (test code = ALT 38 [iU]/L 0-40 (SGPT)) AST (SGOT) (test code = AST 23 [iU]/L 0-40 (SGOT)) Bilirubin, Total (test code 0.5 mg/dL 0.1-1.2 = Bilirubin, Total) BUN (test code = BUN) 12 mg/dL 5-26 BUN/Creatinine Ratio (test 20 8-27 code = BUN/Creatinine Ratio) Calcium, Serum (test code = 9.5 mg/dL 8.5-10.6 Calcium, Serum) Carbon Dioxide, Total (test 24 mmol/L 20-32 code = Carbon Dioxide, Total) Chloride, Serum (test code = 102 mmol/L 97-108 Chloride, Serum) Creatinine, Serum (test code 0.61 mg/dL 0.57-1.00 = Creatinine, Serum) Globulin, Total (test code = 2.8 g/dL 1.5-4.5 Globulin, Total) Glom Filt Rate, Est (test >60 60-128 code = Glom Filt Rate, Est) Glucose, Serum (test code = 93 mg/dL 65-99 Glucose, Serum) If -Turkish (test >60 60-128 Note: Persistent reduction for code = If -Turkish) 3 mo nths or more in an eGFR <60 mL/min/1.73 m2 defines CKD. Patients wi th eGFR values >/=60 mL/min/1.7 3 m2 may also have CKD if evid ence of persistent prote inuria is present. Additio nal information may be found at [email or web address]. Potassium, Serum (test code 4.3 mmol/L 3.5-5.2 = Potassium, Serum) Protein, Total, Serum (test 7.1 g/dL 6.0-8.5 code = Protein, Total, Serum) Sodium, Serum (test code = 138 mmol/L 135-145 Sodium, Serum) PATIENT WAS FASTINGLipid [id number] 00:00:00 Test Item Value Reference Range Comments Cholesterol, Total (test code = 178 mg/dL 100-199 Cholesterol, Total) HDL Cholesterol (test code = 68 mg/dL 40-59 HDL cholesterol values >59 HDL Cholesterol) mg/dL are assoc iated with reduced cardiac risk. LDL Cholesterol Calc (test code 89 mg/dL 0-99 = LDL Cholesterol Calc) Triglycerides (test code = 107 mg/dL 0-149 Triglycerides) VLDL Cholesterol Erasto (test code 21 mg/dL 5-40 = VLDL Cholesterol Erasto) PATIENT WAS FASTING PERFORMED BY: [facility] [id number], AUTOMATED, W/O MICRO ([id number]) 2007-08-05 00:00:00 Test Item Value Reference Range Comments UA - APPEARANCE (test code = 5767-9) CLEAR UA - BILIRUBIN (test code = 5770-3) NEG UA - BLOOD (test code = 5794-3) NEG UA - COLOR (test code = 5778-6) YELLOW UA - COMMENTS (test code = UA - COMMENTS) . UA - GLUCOSE (test code = 5792-7) NEG UA - KETONES (test code = 2514-8) NEG UA - LEUKOCYTE ESTERASE (test code = 5799-2) NEG UA - NITRITE (test code = 5802-4) NEG UA - PH (test code = 5803-2) NEG 4.6-8.0 UA - PROTEIN (test code = 57396-7) NEG UA - REDUCING SUBSTANCE (test code = 40376-0) . UA - SPECIFIC GRAVITY (test code = 2965-2) NEG 1.001 -1.035 UA - URINE SEDIMENT (test code = 30450-6) . Comp. Metabolic Panel (14)2007-08-01 00:00:00 Test Item Value Reference Range Comments A/G Ratio (test code = A/G Ratio) 1.5 1.1-2.5 Albumin, Serum (test code = Albumin, Serum) 4.2 g/dL 3.5- 5.5 Alkaline Phosphatase, S (test code = Alkaline 77 [iU]/L 25 -150 Phosphatase, S) ALT (SGPT) (test code = ALT (SGPT)) 20 [iU]/L 0-40 AST (SGOT) (test code = AST (SGOT)) 16 [iU]/L 0-40 Bilirubin, Total (test code = Bilirubin, Total) 0.3 mg/dL 0.1-1.2 BUN (test code = BUN) 13 mg/dL 5-26 BUN/Creatinine Ratio (test code = BUN/Creatinine 22 8-27 Ratio) Calcium, Serum (test code = Calcium, Serum) 9.4 mg/dL 8.5- 10.6 Carbon Dioxide, Total (test code = Carbon 23 mmol/L 20-32 Dioxide, Total) Chloride, Serum (test code = Chloride, Serum) 105 mmol/L 97 -108 Creatinine, Serum (test code = Creatinine, Serum) 0.6 mg/dL 0.5-1.5 Globulin, Total (test code = Globulin, Total) 2.8 g/dL 1. 5-4.5 Glucose, Serum (test code = Glucose, Serum) 87 mg/dL 65-9 9 Potassium, Serum (test code = Potassium, Serum) 4.2 mmol/L 3.5-5.2 Protein, Total, Serum (test code = Protein, 7.0 g/dL 6.0- 8.5 Total, Serum) Sodium, Serum (test code = Sodium, Serum) 143 mmol/L 135-14 5 PATIENT WAS FASTINGLipid [id number] 00:00:00 Test Item Value Reference Range Comments Cholesterol, Total (test code = 176 mg/dL 100-199 Cholesterol, Total) Comment (test code = Comment) COMMENT HD L cholesterol values >59 mg/dL are associ ated with reduced cardiac risk. HDL Cholesterol (test code = 75 mg/dL 40-59 HDL Cholesterol) LDL Cholesterol Calc (test code 83 mg/dL 0-99 = LDL Cholesterol Calc) Triglycerides (test code = 88 mg/dL 0-149 Triglycerides) VLDL Cholesterol Erasto (test code 18 mg/dL 5-40 = VLDL Cholesterol Erasto) PATIENT WAS [id number] 00:00:00 Test Item Value Reference Range Comments TSH (test code = TSH) 1.372 uIU/mL 0.350-5.500 PATIENT WAS FASTING PERFORMED BY: [facility] [address] [id number] HEALTH PANEL (ECWC-CBC,CMP,TSH) ([id number])2007-08-01 00:00:00 Test Item Value Reference Range Comments BLOOD COUNT, PLATELET, AUTOMATED (test code = 186 x10^3uL 15 0-400 777-3) CBC COMMENTS (test code = 79179-2) . C SHT GRANULOCYTE # (test code = 751-8) 66.7 % 42.2-75.2 GRANULOCYTE % (test code = 770-8) 3.5 x10^3uL 1.4-6.5 HCT (HEMATOCRIT) (test code = 4544-3) 40.8 % 35.0-60.0 HGB (HEMOGLOBIN) (test code = 718-7) 13.4 g/dL 11.0-18.0 LYMPHOCYTES, TOTAL (test code = 736-9) 1.5 x10^3uL 1.2-3.4 MCH (MEAN CORPUSCULAR HEMOGLOBIN) (test code = 29.6 pg 2 7.0-37.0 785-6) MCHC (MEAN CORPUSCULAR HEMOGLOBIN CONCENTRATI 32.9 g/dL 33 .0-37.0 (test code = 786-4) MCV (MEAN CORPUSCULAR VOLUME) (test code = 90.2 fL 80.0- 99.9 787-2) MONOCYTE # (test code = 742-7) 4.0 % 1.7-9.3 MONOCYTES (test code = 5905-5) 0.2 x10^3uL 0.1-0.6 MPV (test code = 776-5) 8.3 fL 7.8-11.0 RBC (test code = 789-8) 4.52 x10^6uL 4.00-6.00 RDW (RED CELL DISTRIBUTION WIDTH) (test code = 13.3 % 1 1.6-13.7 788-0) WBC (test code = 6690-2) 5.2 x10^3uL 4.5-10.5 Lipid [id number] 00:00:00 Test Item Value Reference Range Comments Cholesterol, Total (test code = 194 mg/dL 100-199 Cholesterol, Total) Comment (test code = Comment) COMMENT HD L cholesterol values >59 mg/dL are associ ated with reduced cardiac risk. HDL Cholesterol (test code = 79 mg/dL 40-59 HDL Cholesterol) LDL Cholesterol Calc (test code 93 mg/dL 0-99 = LDL Cholesterol Calc) Triglycerides (test code = 110 mg/dL 0-149 Triglycerides) VLDL Cholesterol Erasto (test code 22 mg/dL 5-40 = VLDL Cholesterol Erasto) PATIENT WAS FASTING PERFORMED BY: [facility] [id number]. Metabolic Panel (14)2007-01-28 00:00:00 Test Item Value Reference Range Comments A/G Ratio (test code = A/G Ratio) 1.7 1.1-2.5 Alkaline Phosphatase, S (test code = Alkaline 102 [iU]/L 25 -150 Phosphatase, S) ALT (SGPT) (test code = ALT (SGPT)) 40 [iU]/L 0-40 AST (SGOT) (test code = AST (SGOT)) 27 [iU]/L 0-40 Bilirubin, Total (test code = Bilirubin, Total) 0.4 mg/dL 0.1-1.2 Albumin, Serum (test code = Albumin, Serum) 4.3 g/dL 3.5- 5.5 BUN (test code = BUN) 16 mg/dL 5-26 BUN/Creatinine Ratio (test code = BUN/Creatinine 23 8-27 Ratio) Calcium, Serum (test code = Calcium, Serum) 9.2 mg/dL 8.5- 10.6 Carbon Dioxide, Total (test code = Carbon 28 mmol/L 20-32 Dioxide, Total) Chloride, Serum (test code = Chloride, Serum) 104 mmol/L 96 -109 Creatinine, Serum (test code = Creatinine, Serum) 0.7 mg/dL 0.5-1.5 Globulin, Total (test code = Globulin, Total) 2.5 g/dL 1. 5-4.5 Glucose, Serum (test code = Glucose, Serum) 85 mg/dL 65-9 9 Potassium, Serum (test code = Potassium, Serum) 4.7 mmol/L 3.5-5.5 Protein, Total, Serum (test code = Protein, 6.8 g/dL 6.0- 8.5 Total, Serum) Sodium, Serum (test code = Sodium, Serum) 141 mmol/L 135-14 8 PATIENT WAS FASTINGURINALYSIS, AUTOMATED, W/O MICRO ([id number])2006-08-06 00:00:00 Test Item Value Reference Range Comments UA - APPEARANCE (test code = 5767-9) CLEAR UA - BILIRUBIN (test code = 5770-3) NEG UA - BLOOD (test code = 5794-3) NEG UA - COLOR (test code = 5778-6) YELLOW UA - COMMENTS (test code = UA - COMMENTS) NEG UA - GLUCOSE (test code = 5792-7) NEG UA - KETONES (test code = 2514-8) NEG UA - LEUKOCYTE ESTERASE (test code = 5799-2) NEG UA - NITRITE (test code = 5802-4) NEG UA - PH (test code = 5803-2) NEG 4.6-8.0 UA - PROTEIN (test code = 83187-5) NEG UA - REDUCING SUBSTANCE (test code = 36351-5) NEG UA - SPECIFIC GRAVITY (test code = 2965-2) NEG 1.001 -1.035 UA - URINE SEDIMENT (test code = 35817-1) NEG Comp. Metabolic Panel (14)2005-07-24 00:00:00 Test Item Value Reference Range Comments A/G Ratio (test code = A/G Ratio) 1.6 1.1-2.5 Albumin, Serum (test code = Albumin, Serum) 4.6 g/dL 3.5- 5.5 Alkaline Phosphatase, Serum (test code = Alkaline 107 [iU]/L 25-150 Phosphatase, Serum) ALT (SGPT) (test code = ALT (SGPT)) 33 [iU]/L 0-40 AST (SGOT) (test code = AST (SGOT)) 25 [iU]/L 0-40 Bilirubin, Total (test code = Bilirubin, Total) 0.5 mg/dL 0.1-1.2 BUN (test code = BUN) 11 mg/dL 5-26 BUN/Creatinine Ratio (test code = BUN/Creatinine 18 8-27 Ratio) Calcium, Serum (test code = Calcium, Serum) 9.8 mg/dL 8.5- 10.6 Carbon Dioxide, Total (test code = Carbon 27 mmol/L 20-32 Dioxide, Total) Chloride, Serum (test code = Chloride, Serum) 99 mmol/L 96 -109 Creatinine, Serum (test code = Creatinine, Serum) 0.6 mg/dL 0.5-1.5 Globulin, Total (test code = Globulin, Total) 2.9 g/dL 1. 5-4.5 Glucose, Serum (test code = Glucose, Serum) 81 mg/dL 65-9 9 Potassium, Serum (test code = Potassium, Serum) 3.8 mmol/L 3.5-5.5 Protein, Total, Serum (test code = Protein, 7.5 g/dL 6.0- 8.5 Total, Serum) Sodium, Serum (test code = Sodium, Serum) 139 mmol/L 135-14 8 PATIENT NOT FASTINGLipid [id number] 00:00:00 Test Item Value Reference Range Comments Cholesterol, Total (test code = 263 mg/dL 100-199 Cholesterol, Total) Comment (test code = Comment) COMMENT If initial LDL-cholesterol result is >100 m g/dL, assess for risk factors. HDL Cholesterol (test code = HDL 83 mg/dL 40-59 Cholesterol) LDL Cholesterol Calc (test code 155 mg/dL 0-99 = LDL Cholesterol Calc) Triglycerides (test code = 126 mg/dL 0-149 Triglycerides) VLDL Cholesterol Erasto (test code 25 mg/dL 5-40 = VLDL Cholesterol Erasto) PATIENT NOT [id number] 00:00:00 Test Item Value Reference Range Comments TSH (test code = TSH) 2.417 uIU/mL 0.350-5.500 PATIENT NOT FASTING PERFORMED BY: [facility] [address] [id number] HEALTH PANEL (ECWC-CBC,CMP,TSH) ([id number])2005-07-24 00:00:00 Test Item Value Reference Range Comments BLOOD COUNT, PLATELET, AUTOMATED (test code = 262. x10^3uL 15 0-400 777-3) GRANULOCYTE # (test code = 751-8) 61.1 % 42.2-75.2 GRANULOCYTE % (test code = 770-8) 4.4 x10^3uL 1.4-6.5 HCT (HEMATOCRIT) (test code = 4544-3) 44.1 % 35.0-60.0 HGB (HEMOGLOBIN) (test code = 718-7) 14.6 g/dL 11.0-18.0 LYMPHOCYTES, TOTAL (test code = 736-9) 2.1 x10^3uL 1.2-3.4 MCH (MEAN CORPUSCULAR HEMOGLOBIN) (test code = 28.6 pg 2 7.0-37.0 785-6) MCHC (MEAN CORPUSCULAR HEMOGLOBIN CONCENTRATI 33.1 g/dL 33 .0-37.0 (test code = 786-4) MCV (MEAN CORPUSCULAR VOLUME) (test code = 86.4 fL 80.0- 99.9 787-2) MONOCYTE # (test code = 742-7) 9.3 % 1.7-9.3 MONOCYTES (test code = 5905-5) 0.7 x10^3uL 0.1-0.6 MPV (test code = 776-5) 7.9 fL 7.8-11.0 RBC (test code = 789-8) 5.10 x10^6uL 4.00-6.00 RDW (RED CELL DISTRIBUTION WIDTH) (test code = 13.0 % 1 1.6-13.7 788-0) WBC (test code = 6690-2) 7.2 x10^3uL 4.5-10.5 URINALYSIS W/O MICROSCOPY ([id number])2005-07-24 00:00:00 Test Item Value Reference Range Comments UA - BILIRUBIN (test code = 5770-3) NEG UA - BLOOD (test code = 5794-3) NEG UA - COMMENTS (test code = UA - COMMENTS) NEG UA - LEUKOCYTE ESTERASE (test code = 5799-2) NEG UA - NITRITE (test code = 5802-4) NEG UA - PH (test code = 5803-2) NEG 4.6-8.0 UA - PROTEIN (test code = 60871-2) NEG UA - REDUCING SUBSTANCE (test code = 87385-7) NEG UA - SPECIFIC GRAVITY (test code = 2965-2) NEG 1.001 -1.035 UA - URINE SEDIMENT (test code = 37718-9) NEG UA - APPEARANCE (test code = 5767-9) CLEAR UA - COLOR (test code = 5778-6) YELLOW UA - GLUCOSE (test code = 5792-7) NEG UA - KETONES (test code = 2514-8) NEG Comp. Metabolic Panel (14)2004-07-18 00:00:00 Test Item Value Reference Range Comments A/G Ratio (test code = A/G Ratio) 1.5 1.1-2.5 Albumin, Serum (test code = Albumin, Serum) 4.5 g/dL 3.5- 5.5 Alkaline Phosphatase, Serum (test code = Alkaline 84 [iU]/L 25-150 Phosphatase, Serum) ALT (SGPT) (test code = ALT (SGPT)) 21 [iU]/L 0-40 AST (SGOT) (test code = AST (SGOT)) 17 [iU]/L 0-40 Bilirubin, Total (test code = Bilirubin, Total) 0.6 mg/dL 0.1-1.2 BUN (test code = BUN) 11 mg/dL 5-26 BUN/Creatinine Ratio (test code = BUN/Creatinine 18 8-27 Ratio) Calcium, Serum (test code = Calcium, Serum) 9.5 mg/dL 8.5- 10.6 Carbon Dioxide, Total (test code = Carbon 26 mmol/L 20-32 Dioxide, Total) Chloride, Serum (test code = Chloride, Serum) 106 mmol/L 96 -109 Creatinine, Serum (test code = Creatinine, Serum) 0.6 mg/dL 0.5-1.5 Globulin, Total (test code = Globulin, Total) 3.1 g/dL 1. 5-4.5 Glucose, Serum (test code = Glucose, Serum) 86 mg/dL 65-9 9 Potassium, Serum (test code = Potassium, Serum) 3.9 mmol/L 3.5-5.5 Protein, Total, Serum (test code = Protein, 7.6 g/dL 6.0- 8.5 Total, Serum) Sodium, Serum (test code = Sodium, Serum) 135 mmol/L 135-14 8 PATIENT NOT [id number] 00:00:00 Test Item Value Reference Range Comments TSH (test code = TSH) 2.754 uIU/mL 0.350-5.500 PATIENT NOT FASTING PERFORMED BY: [facility] [address] [id number] PANEL ([facility]-CBC,CMP,TSH) ([id number])2004-07-18 00:00:00 Test Item Value Reference Range Comments BLOOD COUNT, PLATELET, AUTOMATED (test code = 264 x10^3uL 15 0-400 777-3) CBC COMMENTS (test code = 21873-9) See Comments C MFR MCH (MEAN CORPUSCULAR HEMOGLOBIN) (test code = 29.0 pg 2 7.0-37.0 785-6) MCHC (MEAN CORPUSCULAR HEMOGLOBIN CONCENTRATI 32.8 g/dL 33 .0-37.0 (test code = 786-4) MPV (test code = 776-5) 7.8 fL 7.8-11.0 RDW (RED CELL DISTRIBUTION WIDTH) (test code = 12.8 % 1 1.6-13.7 788-0) GRANULOCYTE # (test code = 751-8) 64.4 % 42.2-75.2 GRANULOCYTE % (test code = 770-8) 5.5 x10^3uL 1.4-6.5 HCT (HEMATOCRIT) (test code = 4544-3) 42.7 % 35.0-60.0 HGB (HEMOGLOBIN) (test code = 718-7) 14.0 g/dL 11.0-18.0 LYMPHOCYTES, TOTAL (test code = 736-9) 2.3 x10^3uL 1.2-3.4 MCV (MEAN CORPUSCULAR VOLUME) (test code = 88.4 fL 80.0- 99.9 787-2) MONOCYTE # (test code = 742-7) 8.1 % 1.7-9.3 MONOCYTES (test code = 5905-5) 0.7 x10^3uL 0.1-0.6 RBC (test code = 789-8) 4.83 x10^6uL 4.00-6.00 WBC (test code = 6690-2) 8.5 x10^3uL 4.5-10.5 URINALYSIS W/O MICROSCOPY ([id number])2004-07-18 00:00:00 Test Item Value Reference Range Comments UA - APPEARANCE (test code = 5767-9) clear UA - BILIRUBIN (test code = 5770-3) neg UA - BLOOD (test code = 5794-3) neg UA - COLOR (test code = 5778-6) yellow UA - COMMENTS (test code = UA - COMMENTS) neg UA - GLUCOSE (test code = 5792-7) neg UA - KETONES (test code = 2514-8) neg UA - LEUKOCYTE ESTERASE (test code = 5799-2) neg UA - NITRITE (test code = 5802-4) neg UA - PH (test code = 5803-2) neg 4.6-8.0 UA - PROTEIN (test code = 91273-2) neg UA - REDUCING SUBSTANCE (test code = 53577-5) neg UA - SPECIFIC GRAVITY (test code = 2965-2) neg 1.001 -1.035 UA - URINE SEDIMENT (test code = 38958-3) neg SPUN MICROHEMATOCRIT (81706)2003-07-19 00:00:00 Test Item Value Reference Range Comments SPUN MICROHEMATOCRIT (test code = 4545-0) 37 URINALYSIS W/O MICROSCOPY ([id number])2003-07-19 00:00:00 Test Item Value Reference Range Comments UA - APPEARANCE (test code = 5767-9) CLEAR UA - BILIRUBIN (test code = 5770-3) NEG UA - BLOOD (test code = 5794-3) NEG UA - COLOR (test code = 5778-6) YELLOW UA - GLUCOSE (test code = 5792-7) NEG UA - KETONES (test code = 2514-8) NEG UA - LEUKOCYTE ESTERASE (test code = 5799-2) NEG UA - NITRITE (test code = 5802-4) NEG UA - PH (test code = 5803-2) 6 4.6-8.0 UA - PROTEIN (test code = 72547-6) NEG Assessments Condition Name Status Diagnosis Date Treating Clinici an Right upper quadrant pain Active 0 Encounter for screening mammogram for Active 0 malignant neoplasm of breast Total shoulder replacement Active 2019-02-16 10:05:10 Pain of left shoulder joint Active 2018-08-18 10:37:00 Total shoulder replacement Active 2018-08-18 10:37:02 Pain of left shoulder joint Active 2018-08-09 10:35:09 Muscle weakness Active 2018-08-09 10:35:09 Joint stiffness Active 2018-08-09 10:35:09 Abnormal posture Active 2018-08-09 10:35:09 Pain of left shoulder joint Active 2018-08-09 10:35:09 Muscle weakness Active 2018-08-09 10:35:09 Joint stiffness Active 2018-08-09 10:35:09 Abnormal posture Active 2018-08-09 10:35:09 Abnormal posture Active 2018-08-03 10:02:13 Joint stiffness Active 2018-08-03 10:02:13 Muscle weakness Active 2018-08-03 10:02:13 Pain of left shoulder joint Active 2018-08-03 10:02:13 Abnormal posture Active 2018-08-03 10:02:13 Joint stiffness Active 2018-08-03 10:02:13 Muscle weakness Active 2018-08-03 10:02:13 Pain of left shoulder joint Active 2018-08-03 10:02:13 Abnormal posture Active 2018-08-01 09:07:12 Joint stiffness Active 2018-08-01 09:07:12 Muscle weakness Active 2018-08-01 09:07:12 Pain of left shoulder joint Active 2018-08-01 09:07:12 Abnormal posture Active 2018-08-01 09:07:12 Joint stiffness Active 2018-08-01 09:07:12 Muscle weakness Active 2018-08-01 09:07:12 Pain of left shoulder joint Active 2018-08-01 09:07:12 Abnormal posture Active 2018-07-27 09:07:57 Joint stiffness Active 2018-07-27 09:07:57 Muscle weakness Active 2018-07-27 09:07:57 Pain of left shoulder joint Active 2018-07-27 09:07:57 Abnormal posture Active 2018-07-27 09:07:57 Joint stiffness Active 2018-07-27 09:07:57 Muscle weakness Active 2018-07-27 09:07:57 Pain of left shoulder joint Active 2018-07-27 09:07:57 Abnormal posture Active 2018-07-25 10:12:05 Joint stiffness Active 2018-07-25 10:12:05 Muscle weakness Active 2018-07-25 10:12:05 Pain of left shoulder joint Active 2018-07-25 10:12:05 Abnormal posture Active 2018-07-25 10:12:05 Joint stiffness Active 2018-07-25 10:12:05 Muscle weakness Active 2018-07-25 10:12:05 Pain of left shoulder joint Active 2018-07-25 10:12:05 Abnormal posture Active 2018-07-20 09:06:24 Joint stiffness Active 2018-07-20 09:06:24 Muscle weakness Active 2018-07-20 09:06:24 Pain of left shoulder joint Active 2018-07-20 09:06:24 Abnormal posture Active 2018-07-20 09:06:24 Joint stiffness Active 2018-07-20 09:06:24 Muscle weakness Active 2018-07-20 09:06:24 Pain of left shoulder joint Active 2018-07-20 09:06:24 Abnormal posture Active 2018-07-18 10:45:48 Joint stiffness Active 2018-07-18 10:45:48 Muscle weakness Active 2018-07-18 10:45:48 Pain of left shoulder joint Active 2018-07-18 10:45:48 Abnormal posture Active 2018-07-18 10:45:48 Joint stiffness Active 2018-07-18 10:45:48 Muscle weakness Active 2018-07-18 10:45:48 Pain of left shoulder joint Active 2018-07-18 10:45:48 Abnormal posture Active 2018-07-13 09:39:49 Joint stiffness Active 2018-07-13 09:39:49 Muscle weakness Active 2018-07-13 09:39:49 Pain of left shoulder joint Active 2018-07-13 09:39:49 Abnormal posture Active 2018-07-11 09:42:03 Joint stiffness Active 2018-07-11 09:42:03 Muscle weakness Active 2018-07-11 09:42:03 Pain of left shoulder joint Active 2018-07-11 09:42:03 Abnormal posture Active 2018-07-06 09:32:18 Joint stiffness Active 2018-07-06 09:32:18 Muscle weakness Active 2018-07-06 09:32:18 Pain of left shoulder joint Active 2018-07-06 09:32:18 Abnormal posture Active 2018-07-06 09:32:18 Joint stiffness Active 2018-07-06 09:32:18 Muscle weakness Active 2018-07-06 09:32:18 Pain of left shoulder joint Active 2018-07-06 09:32:18 Pain of left shoulder joint Active 2018-07-04 10:04:07 Pain of left shoulder joint Active 2018-07-04 10:04:07 Pain of left shoulder joint Active 2018-06-30 09:06:12 Muscle weakness Active 2018-06-30 09:06:12 Joint stiffness Active 2018-06-30 09:06:12 Abnormal posture Active 2018-06-30 09:06:12 Pain of left shoulder joint Active 2018-06-30 09:06:12 Muscle weakness Active 2018-06-30 09:06:12 Joint stiffness Active 2018-06-30 09:06:12 Abnormal posture Active 2018-06-30 09:06:12 Abnormal posture Active 2018-06-28 09:10:03 Joint stiffness Active 2018-06-28 09:10:03 Muscle weakness Active 2018-06-28 09:10:03 Pain of left shoulder joint Active 2018-06-28 09:10:03 Abnormal posture Active 2018-06-28 09:10:03 Joint stiffness Active 2018-06-28 09:10:03 Muscle weakness Active 2018-06-28 09:10:03 Pain of left shoulder joint Active 2018-06-28 09:10:03 Abnormal posture Active 2018-06-23 11:38:18 Joint stiffness Active 2018-06-23 11:38:18 Muscle weakness Active 2018-06-23 11:38:18 Pain of left shoulder joint Active 2018-06-23 11:38:18 Abnormal posture Active 2018-06-23 11:38:18 Joint stiffness Active 2018-06-23 11:38:18 Muscle weakness Active 2018-06-23 11:38:18 Pain of left shoulder joint Active 2018-06-23 11:38:18 Abnormal posture Active 2018-06-21 09:06:37 Joint stiffness Active 2018-06-21 09:06:37 Muscle weakness Active 2018-06-21 09:06:37 Pain of left shoulder joint Active 2018-06-21 09:06:37 Abnormal posture Active 2018-06-21 09:06:37 Joint stiffness Active 2018-06-21 09:06:37 Muscle weakness Active 2018-06-21 09:06:37 Pain of left shoulder joint Active 2018-06-21 09:06:37 Abnormal posture Active 2018-06-16 08:58:32 Joint stiffness Active 2018-06-16 08:58:32 Muscle weakness Active 2018-06-16 08:58:32 Pain of left shoulder joint Active 2018-06-16 08:58:32 Abnormal posture Active 2018-06-16 08:58:32 Joint stiffness Active 2018-06-16 08:58:32 Muscle weakness Active 2018-06-16 08:58:32 Pain of left shoulder joint Active 2018-06-16 08:58:32 Abnormal posture Active 2018-06-14 09:07:55 Joint stiffness Active 2018-06-14 09:07:55 Muscle weakness Active 2018-06-14 09:07:55 Pain of left shoulder joint Active 2018-06-14 09:07:55 Abnormal posture Active 2018-06-14 09:07:55 Joint stiffness Active 2018-06-14 09:07:55 Muscle weakness Active 2018-06-14 09:07:55 Pain of left shoulder joint Active 2018-06-14 09:07:55 Abnormal posture Active 2018-06-09 10:48:35 Joint stiffness Active 2018-06-09 10:48:35 Muscle weakness Active 2018-06-09 10:48:35 Pain of left shoulder joint Active 2018-06-09 10:48:35 Abnormal posture Active 2018-06-09 10:48:35 Joint stiffness Active 2018-06-09 10:48:35 Muscle weakness Active 2018-06-09 10:48:35 Pain of left shoulder joint Active 2018-06-09 10:48:35 Abnormal posture Active 2018-06-06 13:10:01 Joint stiffness Active 2018-06-06 13:10:01 Muscle weakness Active 2018-06-06 13:10:01 Pain of left shoulder joint Active 2018-06-06 13:10:01 Abnormal posture Active 2018-06-06 13:10:01 Joint stiffness Active 2018-06-06 13:10:01 Muscle weakness Active 2018-06-06 13:10:01 Pain of left shoulder joint Active 2018-06-06 13:10:01 Abnormal posture Active 2018-06-01 11:40:55 Joint stiffness Active 2018-06-01 11:40:55 Muscle weakness Active 2018-06-01 11:40:55 Pain of left shoulder joint Active 2018-06-01 11:40:55 Abnormal posture Active 2018-06-01 11:40:55 Joint stiffness Active 2018-06-01 11:40:55 Muscle weakness Active 2018-06-01 11:40:55 Pain of left shoulder joint Active 2018-06-01 11:40:55 Abnormal posture Active 2018-05-30 08:36:33 Joint stiffness Active 2018-05-30 08:36:33 Muscle weakness Active 2018-05-30 08:36:33 Pain of left shoulder joint Active 2018-05-30 08:36:33 Abnormal posture Active 2018-05-30 08:36:33 Joint stiffness Active 2018-05-30 08:36:33 Muscle weakness Active 2018-05-30 08:36:33 Pain of left shoulder joint Active 2018-05-30 08:36:33 Pain of left shoulder joint Active 2018-05-27 08:40:18 Total shoulder replacement Active 2018-05-27 10:19:30 Muscle weakness Active 2018-05-27 08:40:18 Joint stiffness Active 2018-05-27 08:40:18 Abnormal posture Active 2018-05-27 08:40:18 Pain of left shoulder joint Active 2018-05-27 08:40:18 Total shoulder replacement Active 2018-05-27 10:19:30 Muscle weakness Active 2018-05-27 08:40:18 Joint stiffness Active 2018-05-27 08:40:18 Abnormal posture Active 2018-05-27 08:40:18 Abnormal posture Active 2018-05-23 09:58:52 Joint stiffness Active 2018-05-23 09:58:52 Muscle weakness Active 2018-05-23 09:58:52 Pain of left shoulder joint Active 2018-05-23 09:58:52 Abnormal posture Active 2018-05-23 09:58:52 Joint stiffness Active 2018-05-23 09:58:52 Muscle weakness Active 2018-05-23 09:58:52 Pain of left shoulder joint Active 2018-05-23 09:58:52 Abnormal posture Active 2018-05-19 08:58:47 Joint stiffness Active 2018-05-19 08:58:47 Muscle weakness Active 2018-05-19 08:58:47 Pain of left shoulder joint Active 2018-05-19 08:58:47 Abnormal posture Active 2018-05-19 08:58:47 Joint stiffness Active 2018-05-19 08:58:47 Muscle weakness Active 2018-05-19 08:58:47 Pain of left shoulder joint Active 2018-05-19 08:58:47 Abnormal posture Active 2018-05-13 11:06:09 Joint stiffness Active 2018-05-13 11:06:09 Muscle weakness Active 2018-05-13 11:06:09 Pain of left shoulder joint Active 2018-05-13 11:06:09 Abnormal posture Active 2018-05-13 11:06:09 Joint stiffness Active 2018-05-13 11:06:09 Muscle weakness Active 2018-05-13 11:06:09 Pain of left shoulder joint Active 2018-05-13 11:06:09 Abnormal posture Active 2018-05-11 16:36:49 Joint stiffness Active 2018-05-11 16:36:49 Muscle weakness Active 2018-05-11 16:36:49 Pain of left shoulder joint Active 2018-05-11 16:36:49 Abnormal posture Active 2018-05-11 16:36:49 Joint stiffness Active 2018-05-11 16:36:49 Muscle weakness Active 2018-05-11 16:36:49 Pain of left shoulder joint Active 2018-05-11 16:36:49 Abnormal posture Active 2018-04-28 09:19:15 Joint stiffness Active 2018-04-28 09:19:15 Muscle weakness Active 2018-04-28 09:19:15 Pain of left shoulder joint Active 2018-04-28 09:19:15 Abnormal posture Active 2018-04-28 09:19:15 Joint stiffness Active 2018-04-28 09:19:15 Muscle weakness Active 2018-04-28 09:19:15 Pain of left shoulder joint Active 2018-04-28 09:19:15 Abnormal posture Active 2018-04-26 09:34:09 Joint stiffness Active 2018-04-26 09:34:09 Muscle weakness Active 2018-04-26 09:34:09 Pain of left shoulder joint Active 2018-04-26 09:34:09 Abnormal posture Active 2018-04-26 09:34:09 Joint stiffness Active 2018-04-26 09:34:09 Muscle weakness Active 2018-04-26 09:34:09 Pain of left shoulder joint Active 2018-04-26 09:34:09 Abnormal posture Active 2018-04-21 11:30:10 Joint stiffness Active 2018-04-21 11:30:10 Muscle weakness Active 2018-04-21 11:30:10 Pain of left shoulder joint Active 2018-04-21 11:30:10 Abnormal posture Active 2018-04-19 11:42:41 Joint stiffness Active 2018-04-19 11:42:41 Muscle weakness Active 2018-04-19 11:42:41 Pain of left shoulder joint Active 2018-04-19 11:42:41 Abnormal posture Active 2018-04-15 09:36:59 Joint stiffness Active 2018-04-15 09:36:59 Muscle weakness Active 2018-04-15 09:36:59 Pain of left shoulder joint Active 2018-04-15 09:36:59 Pain of left shoulder joint Active 2018-04-13 14:16:02 Muscle weakness Active 2018-04-13 14:16:02 Joint stiffness Active 2018-04-13 14:16:02 Abnormal posture Active 2018-04-13 14:16:02 ROUTINE GYNECOLOGICAL EXAMINATION Active (V72.31) URINARY, INCONTINENCE, STRESS FEMALE Active SCREENING FOR MALIGNANT NEOPLASMS OF Active THE RECTUM (V76.41) HYPERCHOLESTEREMIA Active ANXIETY AND DEPRESSION Active ELEVATED FASTING BLOOD SUGAR Active POSTMENOPAUSAL ATROPHIC VAGINITIS Active (627.3) DEFICIENCY, VITAMIN D NOS (268.9) Active Pain of left shoulder joint Active 2018-04-06 09:37:46 Muscle weakness Active 2018-04-06 09:37:46 Joint stiffness Active 2018-04-06 09:37:46 Abnormal posture Active 2018-04-06 09:37:46 Pain of left shoulder joint Active 2018-04-04 10:53:12 Muscle weakness Active 2018-04-04 10:53:12 Joint stiffness Active 2018-04-04 10:53:12 Abnormal posture Active 2018-04-04 10:53:12 Pain of left shoulder joint Active 2018-03-30 14:36:22 Muscle weakness Active 2018-03-30 14:36:22 Joint stiffness Active 2018-03-30 14:36:22 Abnormal posture Active 2018-03-30 14:36:22 Pain of left shoulder joint Active 2018-03-28 07:42:19 Muscle weakness Active 2018-03-28 07:42:19 Joint stiffness Active 2018-03-28 07:42:19 Abnormal posture Active 2018-03-28 07:42:19 Pain of left shoulder joint Active 2018-03-23 08:37:38 Muscle weakness Active 2018-03-23 08:37:38 Joint stiffness Active 2018-03-23 08:37:38 Abnormal posture Active 2018-03-23 08:37:38 Pain of left shoulder joint Active 2018-03-21 09:12:24 Muscle weakness Active 2018-03-21 09:12:24 Joint stiffness Active 2018-03-21 09:12:24 Abnormal posture Active 2018-03-21 09:12:24 UNSPECIFIED DISORDER OF LIPOID Active METABOLISM (272.9) ELEVATED FASTING BLOOD SUGAR Active DEFICIENCY, VITAMIN D NOS (268.9) Active Pain of left shoulder joint Active 2018-03-16 14:40:26 Muscle weakness Active 2018-03-16 14:40:26 Joint stiffness Active 2018-03-16 14:40:26 Abnormal posture Active 2018-03-16 14:40:26 Pain of left shoulder joint Active 2018-03-14 09:37:31 Muscle weakness Active 2018-03-14 09:37:31 Joint stiffness Active 2018-03-14 09:37:31 Abnormal posture Active 2018-03-14 09:37:31 Pain of left shoulder joint Active 2018-03-09 08:58:54 Muscle weakness Active 2018-03-09 08:58:54 Joint stiffness Active 2018-03-09 08:58:54 Abnormal posture Active 2018-03-09 08:58:54 Pain of left shoulder joint Active 2018-03-07 15:00:56 Muscle weakness Active 2018-03-07 15:01:42 Joint stiffness Active 2018-03-07 15:01:42 Abnormal posture Active 2018-03-07 15:01:44 Total shoulder replacement Active 2018-03-02 13:54:04 LEFT SHOULDER PAIN Active ABNORMAL MAMMOGRAM Active FIBROCYSTIC BREAST CHANGES, BILATERAL Active ABNORMAL MAMMOGRAM Active FIBROCYSTIC BREAST CHANGES, BILATERAL Active UNSPECIFIED DISORDER OF LIPOID Active METABOLISM (272.9) ANXIETY AND DEPRESSION Active ELEVATED FASTING BLOOD SUGAR Active DEFICIENCY, VITAMIN D NOS (268.9) Active VISIT FOR SCREENING MAMMOGRAM (Renamed Active from ENCOUNTER FOR SCREENING MAMMOGRAM FOR MALIGNANT NEOPLASM OF BREAST) UNSPECIFIED DISORDER OF LIPOID Active METABOLISM (272.9) DEFICIENCY, VITAMIN D NOS (268.9) Active ELEVATED FASTING BLOOD SUGAR Active ROUTINE GYNECOLOGICAL EXAMINATION Active (V72.31) SCREENING FOR MALIGNANT NEOPLASMS OF Active THE RECTUM (V76.41) UNSPECIFIED DISORDER OF LIPOID Active METABOLISM (272.9) ANXIETY AND DEPRESSION Active ELEVATED FASTING BLOOD SUGAR Active POSTMENOPAUSAL ATROPHIC VAGINITIS Active (627.3) DEFICIENCY, VITAMIN D NOS (268.9) Active ELEVATED FASTING BLOOD SUGAR Active UNSPECIFIED DISORDER OF LIPOID Active METABOLISM (272.9) DEFICIENCY, VITAMIN D NOS (268.9) Active ANXIETY AND DEPRESSION Active UNSPECIFIED DISORDER OF LIPOID Active METABOLISM (272.9) DEFICIENCY, VITAMIN D NOS (268.9) Active ELEVATED FASTING BLOOD SUGAR Active VISIT FOR SCREENING MAMMOGRAM (Renamed Active from ENCOUNTER FOR SCREENING MAMMOGRAM FOR MALIGNANT NEOPLASM OF BREAST) HYPERCHOLESTEREMIA Active DEFICIENCY, VITAMIN D NOS (268.9) Active UNSPECIFIED DISORDER OF LIPOID Active METABOLISM (272.9) ANXIETY AND DEPRESSION Active ROUTINE GYNECOLOGICAL EXAMINATION Active (V72.31) SCREENING FOR MALIGNANT NEOPLASMS OF Active THE RECTUM (V76.41) ANXIETY AND DEPRESSION Active DEFICIENCY, VITAMIN D NOS (268.9) Active UNSPECIFIED DISORDER OF LIPOID Active METABOLISM (272.9) POSTMENOPAUSAL ATROPHIC VAGINITIS Active (627.3) UNSPECIFIED DISORDER OF LIPOID Active METABOLISM (272.9) DEFICIENCY, VITAMIN D NOS (268.9) Active DISORDER, MENOPAUSAL NEC (627.8) Active ANXIETY AND DEPRESSION Active DISORDER, MENOPAUSAL NEC (627.8) Active ANXIETY AND DEPRESSION Active DEFICIENCY, VITAMIN D NOS (268.9) Active UNSPECIFIED DISORDER OF LIPOID Active METABOLISM (272.9) DISORDER, MENOPAUSAL NEC (627.8) Active VISIT FOR SCREENING MAMMOGRAM (Renamed Active from ENCOUNTER FOR SCREENING MAMMOGRAM FOR MALIGNANT NEOPLASM OF BREAST) UNSPECIFIED DISORDER OF LIPOID Active METABOLISM (272.9) DEFICIENCY, VITAMIN D NOS (268.9) Active ROUTINE GYNECOLOGICAL EXAMINATION Active (V72.31) SCREENING FOR MALIGNANT NEOPLASMS OF Active THE RECTUM (V76.41) DEFICIENCY, VITAMIN D NOS (268.9) Active UNSPECIFIED DISORDER OF LIPOID Active METABOLISM (272.9) POSTMENOPAUSAL ATROPHIC VAGINITIS Active (627.3) neg genetic screen Active UNSPECIFIED DISORDER OF LIPOID Active METABOLISM (272.9) DEFICIENCY, VITAMIN D NOS (268.9) Active DEFICIENCY, VITAMIN D NOS (268.9) Active UNSPECIFIED DISORDER OF LIPOID Active METABOLISM (272.9) SPECIAL SCREENING FOR MALIGNANT Active NEOPLASMS, MAMMOGRAM, OTHER (V76.12) UNSPECIFIED DISORDER OF LIPOID Active METABOLISM (272.9) DEFICIENCY, VITAMIN D NOS (268.9) Active ROUTINE GYNECOLOGICAL EXAMINATION Active (V72.31) SCREENING FOR MALIGNANT NEOPLASMS OF Active THE RECTUM (V76.41) DEFICIENCY, VITAMIN D NOS (268.9) Active POSTMENOPAUSAL ATROPHIC VAGINITIS Active (627.3) UNSPECIFIED DISORDER OF LIPOID Active METABOLISM (272.9) REFUSES FLU VACC Active UNSPECIFIED DISORDER OF LIPOID Active METABOLISM (272.9) DEFICIENCY, VITAMIN D NOS (268.9) Active UNSPECIFIED DISORDER OF LIPOID Active METABOLISM (272.9) DEFICIENCY, VITAMIN D NOS (268.9) Active POSTMENOPAUSAL ATROPHIC VAGINITIS Active (627.3) UNSPECIFIED DISORDER OF LIPOID Active METABOLISM (272.9) DEFICIENCY, VITAMIN D NOS (268.9) Active ROUTINE GYNECOLOGICAL EXAMINATION Active (V72.31) SCREENING FOR MALIGNANT NEOPLASMS OF Active THE RECTUM (V76.41) SPECIAL SCREENING FOR MALIGNANT Active NEOPLASMS, MAMMOGRAM, OTHER (V76.12) DEFICIENCY, VITAMIN D NOS (268.9) Active UNSPECIFIED DISORDER OF LIPOID Active METABOLISM (272.9) POSTMENOPAUSAL ATROPHIC VAGINITIS Active (627.3) UNSPECIFIED DISORDER OF LIPOID Active METABOLISM (272.9) DEFICIENCY, VITAMIN D NOS (268.9) Active DEFICIENCY, VITAMIN D NOS (268.9) Active UNSPECIFIED DISORDER OF LIPOID Active METABOLISM (272.9) POSTMENOPAUSAL ATROPHIC VAGINITIS Active (627.3) UNSPECIFIED DISORDER OF LIPOID Active METABOLISM (272.9) DEFICIENCY, VITAMIN D NOS (268.9) Active ROUTINE GYNECOLOGICAL EXAMINATION Active (V72.31) SCREENING FOR MALIGNANT NEOPLASMS OF Active THE RECTUM (V76.41) SPECIAL SCREENING FOR MALIGNANT Active NEOPLASMS, MAMMOGRAM, OTHER (V76.12) DEFICIENCY, VITAMIN D NOS (268.9) Active POSTMENOPAUSAL ATROPHIC VAGINITIS Active (627.3) UNSPECIFIED DISORDER OF LIPOID Active METABOLISM (272.9) UNSPECIFIED DISORDER OF LIPOID Active METABOLISM (272.9) DEFICIENCY, VITAMIN D NOS (268.9) Active DEFICIENCY, VITAMIN D NOS (268.9) Active UNSPECIFIED DISORDER OF LIPOID Active METABOLISM (272.9) SPECIAL SCREENING FOR MALIGNANT Active NEOPLASMS, MAMMOGRAM, OTHER (V76.12) POSTMENOPAUSAL ATROPHIC VAGINITIS Active (627.3) 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 DEFICIENCY, VITAMIN D NOS (268.9) Active ROUTINE GYNECOLOGICAL EXAMINATION Active (V72.31) DEFICIENCY, VITAMIN D NOS (268.9) Active 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 STRESS INCONTINENCE, FEMALE (625.6) Active POSTMENOPAUSAL ATROPHIC VAGINITIS Active (627.3) DEFICIENCY, VITAMIN D NOS (268.9) Active UNSPECIFIED DISORDER OF LIPOID Active METABOLISM (272.9) UNSPECIFIED DISORDER OF LIPOID Active METABOLISM (272.9) DEFICIENCY, VITAMIN D NOS (268.9) Active DEFICIENCY, VITAMIN D NOS (268.9) Active FOLLOW-UP EXAMINATION, AFTER SURGERY Active NOS (V67.00) [NEED FOR] PROPHYLACTIC POSTMENOPAUSAL Active HORMONE REPLACEMENT THERAPY (V07.4) STRESS INCONTINENCE, FEMALE (625.6) Active STRESS INCONTINENCE, FEMALE (625.6) Active POSTMENOPAUSAL ATROPHIC VAGINITIS Active (627.3) STRESS INCONTINENCE, FEMALE (625.6) Active POSTMENOPAUSAL ATROPHIC VAGINITIS Active (627.3) UNSPECIFIED DISORDER OF LIPOID Active METABOLISM (272.9) DEFICIENCY, VITAMIN D NOS (268.9) Active STRESS INCONTINENCE, FEMALE (625.6) Active UNSPECIFIED DISORDER OF LIPOID Active METABOLISM (272.9) UNSPECIFIED DISORDER OF LIPOID Active METABOLISM (272.9) DEFICIENCY, VITAMIN D NOS (268.9) Active STRESS INCONTINENCE, FEMALE (625.6) Active STRESS INCONTINENCE, FEMALE (625.6) Active STRESS INCONTINENCE, FEMALE (625.6) Active ROUTINE GYNECOLOGICAL EXAMINATION Active (V72.31) DEFICIENCY, VITAMIN D NOS (268.9) Active UNSPECIFIED DISORDER OF LIPOID Active METABOLISM (272.9) STRESS INCONTINENCE, FEMALE (625.6) Active rtc for UDT Active DEFICIENCY, VITAMIN D NOS (268.9) Active DISORDER, MENOPAUSAL NEC (627.8) Active UNSPECIFIED DISORDER OF LIPOID Active METABOLISM (272.9) SYMPTOM, MALAISE AND FATIGUE NEC Active (780.79) DISORDER, MENOPAUSAL NEC (627.8) Active SYMPTOM, MALAISE AND FATIGUE NEC Active (780.79) UNSPECIFIED DISORDER OF LIPOID Active METABOLISM (272.9) UNSPECIFIED DISORDER OF LIPOID Active METABOLISM (272.9) SYMPTOM, MALAISE AND FATIGUE NEC Active (780.79) DISORDER, MENOPAUSAL NEC (627.8) Active UNSPECIFIED DISORDER OF LIPOID Active METABOLISM (272.9) GENERAL SYMPTOMS; DIZZINESS AND Active GIDDINESS (780.4) ROUTINE GYNECOLOGICAL EXAMINATION Active (.) ROUTINE GYNECOLOGICAL EXAMINATION Active () UNSPECIFIED DISORDER OF LIPOID Active METABOLISM (272.9) [NEED FOR] PROPHYLACTIC POSTMENOPAUSAL Active HORMONE REPLACEMENT THERAPY (V07.4) POSTMENOPAUSAL ATROPHIC VAGINITIS Active (627.3) GENERAL SYMPTOMS; DIZZINESS AND Active GIDDINESS (780.4) SYMPTOMS INVOLVING CARDIOVASCULAR Active SYSTEM; TACHYCARDIA, UNSPECIFIED (785.0) STRESS INCONTINENCE, FEMALE (625.6) Active GENERAL SYMPTOMS; DIZZINESS AND Active GIDDINESS (780.4) SYMPTOMS INVOLVING CARDIOVASCULAR Active SYSTEM; TACHYCARDIA, UNSPECIFIED (785.0) UNSPECIFIED DISORDER OF LIPOID Active METABOLISM (272.9) [NEED FOR] PROPHYLACTIC POSTMENOPAUSAL Active HORMONE REPLACEMENT THERAPY (V07.4) [NEED FOR] PROPHYLACTIC POSTMENOPAUSAL Active HORMONE REPLACEMENT THERAPY (V07.4) UNSPECIFIED DISORDER OF LIPOID Active METABOLISM (272.9) UNSPECIFIED DISORDER OF LIPOID Active METABOLISM (272.9) [NEED FOR] PROPHYLACTIC POSTMENOPAUSAL Active HORMONE REPLACEMENT THERAPY (V07.4) UNSPECIFIED DISORDER OF LIPOID Active METABOLISM (272.9) ROUTINE GYNECOLOGICAL EXAMINATION Active () ROUTINE GYNECOLOGICAL EXAMINATION Active () ROUTINE GYNECOLOGICAL EXAMINATION Active () UNSPECIFIED DISORDER OF LIPOID Active METABOLISM (272.9) [NEED FOR] PROPHYLACTIC POSTMENOPAUSAL Active HORMONE REPLACEMENT THERAPY (V07.4) POSTMENOPAUSAL ATROPHIC VAGINITIS Active (627.3) STRESS INCONTINENCE, FEMALE (625.6) Active UNSPECIFIED DISORDER OF LIPOID Active METABOLISM (272.9) 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 [NEED FOR] PROPHYLACTIC POSTMENOPAUSAL Active HORMONE REPLACEMENT THERAPY (V07.4) 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 [NEED FOR] PROPHYLACTIC POSTMENOPAUSAL Active HORMONE REPLACEMENT THERAPY (V07.4) ROUTINE GYNECOLOGICAL EXAMINATION Active () ROUTINE GYNECOLOGICAL EXAMINATION Active (V72.31) UNSPECIFIED DISORDER OF LIPOID Active METABOLISM (272.9) [NEED FOR] PROPHYLACTIC POSTMENOPAUSAL Active HORMONE REPLACEMENT THERAPY (V07.4) POSTMENOPAUSAL ATROPHIC VAGINITIS Active (627.3) ROUTINE GYNECOLOGICAL EXAMINATION Active (V72.31) 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 ROUTINE GYNECOLOGICAL EXAMINATION Active (V72.31) [NEED FOR] PROPHYLACTIC POSTMENOPAUSAL Active HORMONE REPLACEMENT THERAPY (V07.4) POSTMENOPAUSAL ATROPHIC VAGINITIS Active (627.3) 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 Unspecified Diagnosis Active Unspecified Diagnosis Active ROUTINE GYNECOLOGICAL EXAMINATION Active (V72.31) 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 [NEED FOR] PROPHYLACTIC POSTMENOPAUSAL Active HORMONE REPLACEMENT THERAPY (V07.4) POSTMENOPAUSAL ATROPHIC VAGINITIS Active (627.3) Unspecified Diagnosis Active 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 GYNECOLOGICAL EXAMINATION (V72.3) Active SPECIAL SCREENING FOR MALIGNANT Active NEOPLASMS, MAMMOGRAM, OTHER (V76.12) SCREENING FOR MALIGNANT NEOPLASMS OF Active THE CERVIX (V76.2) SCREENING FOR MALIGNANT NEOPLASMS OF Active THE RECTUM (V76.41) [NEED FOR] PROPHYLACTIC POSTMENOPAUSAL Active HORMONE REPLACEMENT THERAPY (V07.4) 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 2018-08-18 2018-08-18 Francisco J De La Rosa [id number]_ [id number] 00:00:00 00:00:00 MD Stephie: Surgical Surgical 0411 2145 [facility], [address] [address], Ph. [phone] 2018-08-09 2018-08-09 Zaynab Courtneyt [id number] 00:00:00 00:00:00 EMILY BinghamT: Surgical Surgical 0402 [address] [place] [address], Ph. 2018-08-09 2018-08-09 Zaynab De La Rosa [id number] 00:00:00 00:00:00 EMILY BinghamT: Surgical Surgical 0402 [address] [place] [address], Ph. 2018-08-03 2018-08-03 Zaynab De La Rosa [id number] 00:00:00 00:00:00 EMILY BinghamT: Surgical Surgical 0327 [address] [place] [address], Ph. 2018-08-03 2018-08-03 Zaynab Gomezeret [id number] 00:00:00 00:00:00 EMILY BinghamT: Surgical Surgical [address] [place] [address], Ph. 2018-08-01 2018-08-01 Crystal Estrella Gomezeret [id number] 00:00:00 00:00:00 Lin, MOBILE SALES EXPERT: Surgical Surgical 0325 [address] [place] [address], Ph. 2018-08-01 2018-08-01 Crystal Estrella Gomezeret [id number] 00:00:00 00:00:00 Lin, MOBILE SALES EXPERT: Surgical Surgical 0325 [address] [place] [address], Ph. 2018-07-27 2018-07-27 [place] [id number] 00:00:00 00:00:00 Lin, MOBILE SALES EXPERT: Surgical Surgical 0320 [address] [place] [address], Ph. 2018-07-27 2018-07-27 Crystal Estrella Gomezeret [id number] 00:00:00 00:00:00 Lin, MOBILE SALES EXPERT: Surgical Surgical 0320 [address] [place] [address], Ph. 2018-07-25 2018-07-25 Crystal Estrella Gomezeret [id number] 00:00:00 00:00:00 Mcconnell, MOBILE SALES EXPERT: Surgical Surgical 0318 [address] [facility], [place] [address], Ph. 2018-07-25 2018-07-25 Crystal Estrella Gomezeret [id number] 00:00:00 00:00:00 Mcconnell, MOBILE SALES EXPERT: Surgical Surgical 0318 [address] [place] [address], Ph. 2018-07-20 2018-07-20 Crystal Estrella Gomezeret [id number] 00:00:00 00:00:00 Lin, MOBILE SALES EXPERT: Surgical Surgical 0313 [address] [place] [address], Ph. 2018-07-20 2018-07-20 Crystal Estrella Gomezeret [id number] 00:00:00 00:00:00 Lin, MOBILE SALES EXPERT: Surgical Surgical 0313 [address] [place] [address], Ph. 2018-07-18 2018-07-18 Zaynab Gomezeret [place] [id number] 00:00:00 00:00:00 AUDREY Bingham: Surgical Surgical [address] [place] [address], Ph. 2018-07-18 2018-07-18 Zaynab Gomezeret [place] [id number] 00:00:00 00:00:00 EMILY BinghamT: Surgical Surgical 0311 [address] [place] [address], Ph. 2018-07-13 2018-07-13 Cydney Courtneyt [id number] 00:00:00 00:00:00 Mcconnell, MOBILE SALES EXPERT: Surgical Surgical 0306 [address] [facility], [place] [address], Ph. 2018-07-11 2018-07-11 Crystal Estrella Gomezeret [id number] 00:00:00 00:00:00 Mcconnell, MOBILE SALES EXPERT: Surgical Surgical 0304 [address] [facility], [place] [address], Ph. 2018-07-06 2018-07-06 Crystal Estrella Gomezeret [id number] 00:00:00 00:00:00 Mcconnell, MOBILE SALES EXPERT: Surgical Surgical 0227 [address] [facility], [place] [address], Ph. 2018-07-06 2018-07-06 Cydney Gomezeret [id number] 00:00:00 00:00:00 Mcconnell, MOBILE SALES EXPERT: Surgical Surgical [address] [place] [address], Ph. 2018-07-04 2018-07-04 Jdmercedes Gomezeret [place] 245 _2018 00:00:00 00:00:00 Ladan Tovar Surgical Surgical 0225 MD: [facility], [address] [address], Ph. [phone] 2018-07-04 2018-07-04 Jd Gomezeret [place] [id number] 00:00:00 00:00:00 Ladan Tovar Surgical Surgical 0225 MD: [facility], [address] [address], Ph. [phone] 2018-06-30 2018-06-30 Zaynab Gomezeret [id number] 00:00:00 00:00:00 Bingham, DPT: Surgical Surgical 0221 [address] [place] [address], Ph. 2018-06-30 2018-06-30 Zaynab De La Rosa [id number] 00:00:00 00:00:00 Zachery DPT: Surgical Surgical 0221 [address] [facility], [place] [address], Ph. 2018-06-28 2018-06-28 Crystal Estrella Gomezeret [id number] 00:00:00 00:00:00 Mcconnell, MOBILE SALES EXPERT: Surgical Surgical 0219 [address] [place] [address], Ph. 2018-06-28 2018-06-28 Crystal Estrella Courtne[place] [id number] 00:00:00 00:00:00 Mcconnell, MOBILE SALES EXPERT: Surgical Surgical [address] [place] [address], Ph. 2018-06-23 2018-06-23 Crystal Estrella Gomezeret [id number] 00:00:00 00:00:00 Lin, MOBILE SALES EXPERT: Surgical Surgical 0214 [address] [facility], [place] [address], Ph. 2018-06-23 2018-06-23 Crystal Estrella Gomezeret [id number] 00:00:00 00:00:00 Lin, MOBILE SALES EXPERT: Surgical Surgical 0214 [address] [place] [address], Ph. 2018-06-21 2018-06-21 Crystal Estrella Gomezeret [id number] 00:00:00 00:00:00 Mcconnell, MOBILE SALES EXPERT: Surgical Surgical 0212 [address] [place] [address], Ph. 2018-06-21 2018-06-21 Crystal Estrella Gomezeret [id number] 00:00:00 00:00:00 Mcconnell, MOBILE SALES EXPERT: Surgical Surgical 0212 [address] [facility], [place] [address], Ph. 2018-06-16 2018-06-16 Crystal Estrella Courtneyt [id number] 00:00:00 00:00:00 Lin, MOBILE SALES EXPERT: Surgical Surgical 0207 [address] [facility], [place] [address], Ph. 2018-06-16 2018-06-16 Crystal Estrella Gomezeret [id number] 00:00:00 00:00:00 Mcconnell, MOBILE SALES EXPERT: Surgical Surgical 0207 [address] [facility], [place] [address], Ph. 2018-06-14 2018-06-14 Zaynab Ahuja [place] Gomezeret [id number] 00:00:00 00:00:00 EMILY BinghamT: Surgical Surgical 0205 [address] [place] [address], Ph. 2018-06-14 2018-06-14 Zaynab Gomezeret [id number] 00:00:00 00:00:00 EMILY BinghamT: Surgical Surgical 0205 [address] [facility], [place] [address], Ph. 2018-06-09 2018-06-09 Crystal Estrella Gomezeret [id number] 00:00:00 00:00:00 Mcconnell, MOBILE SALES EXPERT: Surgical Surgical 0131 [address] [facility], [place] [address], Ph. 2018-06-09 2018-06-09 Crystal Estrella Gomeze[place] [id number] 00:00:00 00:00:00 Lin, MOBILE SALES EXPERT: Surgical Surgical 0131 [address] [place] [address], Ph. 2018-06-06 2018-06-06 Crystal Estrella Gomezeret [id number] 00:00:00 00:00:00 Mcconnell, MOBILE SALES EXPERT: Surgical Surgical 0128 [address] [facility], [place] [address], Ph. 2018-06-06 2018-06-06 Cydney Courtneyt [id number] 00:00:00 00:00:00 Lin, MOBILE SALES EXPERT: Surgical Surgical 0128 [address] [facility], [place] [address], Ph. 2018-06-01 2018-06-01 Cydney Courtneyt [id number] 00:00:00 00:00:00 Lin, MOBILE SALES EXPERT: Surgical Surgical 0123 [address] [place] [address], Ph. 2018-06-01 2018-06-01 Cydney Courtneyt [id number] 00:00:00 00:00:00 Mcconnell, MOBILE SALES EXPERT: Surgical Surgical 0123 [address] [place] [address], Ph. 2018-05-30 2018-05-30 Cydney Courtneyt [id number] 00:00:00 00:00:00 Mcconnell, MOBILE SALES EXPERT: Surgical Surgical 0121 [address] [place] [address], Ph. 2018-05-30 2018-05-30 Cydney Courtneyt [id number] 00:00:00 00:00:00 Lin, MOBILE SALES EXPERT: Surgical Surgical 0121 [address] [facility], [place] [address], Ph. 2018-05-27 2018-05-27 Zaynab [place]ome[place]bora [place] [id number] 00:00:00 00:00:00 EMILY BinghamT: Surgical Surgical 0118 [address] [place] [address], Ph. 2018-05-27 2018-05-27 Zaynab Gomezeret [place] [id number] 00:00:00 00:00:00 Zachery, DPT: Surgical Surgical 0118 [address] [facility], [place] [address], Ph. 2018-05-23 2018-05-23 Aysha Courtneyt [id number] 00:00:00 00:00:00 Llyod, MOBILE SALES EXPERT: Surgical Surgical 0114 [address] [facility], [place] [address], Ph. 2018-05-23 2018-05-23 Aysha Gomezeret [id number] 00:00:00 00:00:00 Llyod, MOBILE SALES EXPERT: Surgical Surgical 0114 [address] [facility], [place] [address], Ph. 2018-05-19 2018-05-19 Cydney De La Rosa [id number] 00:00:00 00:00:00 Lin, MOBILE SALES EXPERT: Surgical Surgical 0110 [address] [facility], [place] [address], Ph. 2018-05-19 2018-05-19 Cydney Courtneyt [id number] 00:00:00 00:00:00 Mcconnell, MOBILE SALES EXPERT: Surgical Surgical 0110 [address] [facility], [place] [address], Ph. 2018-05-13 2018-05-13 Aysha Gomezeret [id number] 00:00:00 00:00:00 Llyod, MOBILE SALES EXPERT: Surgical Surgical 0104 [address] [facility], [place] [address], Ph. 2018-05-13 2018-05-13 Aysha Gomezeret [id number] 00:00:00 00:00:00 Llyod, MOBILE SALES EXPERT: Surgical Surgical 0104 [address] [facility], [place] [address], Ph. 2018-05-11 2018-05-11 Zaynab Gomezeret [id number] 00:00:00 00:00:00 EMILY BinghamT: Surgical Surgical 0102 [address] [place] [address], Ph. 2018-05-11 2018-05-11 Zaynab Gomezeret [id number] 00:00:00 00:00:00 EMILY BinghamT: Surgical Surgical 0102 [address] [place] [address], Ph. 2018-04-28 2018-04-28 Zaynab Gomezeret [id number] 00:00:00 00:00:00 EMILY BinghamT: Surgical Surgical 1220 [address] [place] [address], Ph. 2018-04-28 2018-04-28 Zaynab Gomezeret [id number] 00:00:00 00:00:00 EMILY BinghamT: Surgical Surgical 1220 [address] [place] [address], Ph. 2018-04-26 2018-04-26 Zaynab Gomezeret [id number] 00:00:00 00:00:00 EMILY BinghamT: Surgical Surgical 1218 [address] [place] [address], Ph. 2018-04-26 2018-04-26 Zaynab Gomezeret [id number] 00:00:00 00:00:00 EMILY BinghamT: Surgical Surgical 1218 [address] [place] [address], Ph. 2018-04-21 2018-04-21 Aysha Gomezeret [id number] 00:00:00 00:00:00 Mateusz MOBILE SALES EXPERT: Surgical Surgical 1213 [address] [place] [address], Ph. 2018-04-19 2018-04-19 Cydney De La Rosa [id number] 00:00:00 00:00:00 Lin MOBILE SALES EXPERT: Surgical Surgical 1211 [address] [place] [address], Ph. 2018-04-15 2018-04-15 Zaynab Ahuja [place] [id number] 00:00:00 00:00:00 EMILY BinghamT: Surgical Surgical 1207 [address] [place] [address], Ph. 2018-04-13 2018-04-13 Zaynab Ahuja [place] [id number] 00:00:00 00:00:00 EMILY BinghamT: Surgical Surgical 1205 [address] [place] [address], Ph. 2018-04-07 2018-04-08 Office Visit [place] [id number] 07:42:15 11:31:16 [facility] 2018-04-06 2018-04-06 Zaynab L [place] [id number] 00:00:00 00:00:00 EMILY BinghamT: Surgical Surgical 1128 [address] [place] [address], Ph. 2018-04-04 2018-04-04 Zaynab L Estrella Gomezeret [id number] 00:00:00 00:00:00 EMILY BinghamT: Surgical Surgical 1126 [address] [place] [address], Ph. 2018-03-30 2018-03-30 Zaynab Leigha Estrella De La Rosa [id number] 00:00:00 00:00:00 EMILY BinghamT: Surgical Surgical 1121 [address] [place] [address], Ph. 2018-03-28 2018-03-28 Zaynab Gomezeret [id number] 00:00:00 00:00:00 EMILY BinghamT: Surgical Surgical 1119 [address] [place] [address], Ph. 2018-03-23 2018-03-23 Zaynab Gomezeret [id number] 00:00:00 00:00:00 EMILY BinghamT: Surgical Surgical 1114 [address] [place] [address], Ph. 2018-03-21 2018-03-21 Azynab L [place] G[place] [id number] 00:00:00 00:00:00 EMILY BinghamT: Surgical Surgical 1112 [address] [place] [address], Ph. 2018-03-18 2018-03-18 [facility] [id number] 08:34:19 09:06:12 [facility] 2018-03-16 2018-03-16 Talia Courtneyt [id number] 00:00:00 00:00:00 Barley, MOBILE SALES EXPERT: Surgical Surgical 1107 [address] [place] [address], Ph. 2018-03-14 2018-03-14 Zaynab Gomezeret [id number] 00:00:00 00:00:00 EMILY BinghamT: Surgical Surgical 1105 [address] [place] [address], Ph. 2018-03-09 2018-03-09 Zaynab L [place] [id number] 00:00:00 00:00:00 AUDREY Bingham: Surgical Surgical 1031 [address] [place] [address], Ph. 2018-03-07 2018-03-07 Zaynab L [place] [id number] 00:00:00 00:00:00 Bingham, DPT: Surgical Surgical 1029 [address] [facility], [place] [address], Ph. 2018-03-02 2018-03-02 Jd Bai Estrella De La Rosa [id number]_2018 00:00:00 00:00:00 Ladan Tovar, Surgical Surgical 1024 MD: [address] [facility], [address], [place] [address], Ph. [phone] 2018-02-07 2018-02-07 Office Visit [place] [id number] 07:45:13 07:45:13 [facility] 2018-01-28 2018-01-28 Phone [facility] [id number] 09:03:31 09:03:31 Encounter [facility] 2017-11-11 2017-11-11 Annotation/A [place] [id number] 15:31:44 15:31:44 ddendum [facility] 2017-11-08 2017-11-08 Office Visit [place] [id number] 07:41:52 07:41:52 [facility] 2017-10-15 2017-10-15 Office Visit [place] [id number] 07:33:22 07:33:22 [facility] 2017-09-20 2017-09-20 Historical [facility] [id number] 09:20:57 09:20:57 Summary [facility] 2017-03-23 2017-03-23 Office Visit [place] [id number] 07:40:28 07:40:28 [facility] 2017-03-17 2017-03-17 Historical [facility] [id number] 09:05:10 09:05:10 Summary [facility] 2016-09-24 2016-09-24 Office Visit [place] [id number] 07:59:31 07:59:31 [facility] 2016-09-17 2016-09-17 Historical [facility] [id number] 08:23:28 08:23:28 Summary [facility] 2016-09-17 2016-09-17 Historical [facility] [id number] 08:18:17 08:18:17 Summary [facility] 2016-07-07 2016-07-07 Annotation/A [place] [id number] 14:01:24 14:01:24 ddendum [facility] 2016-03-20 2016-03-20 Office Visit [place] [id number] 09:08:06 09:08:06 [facility] 2016-03-13 2016-03-13 Historical [facility] [id number] 08:44:20 08:44:20 Summary [facility] 2015-12-24 2015-12-24 Office Visit [place] [id number] 09:52:59 09:52:59 [facility] 2015-11-21 2015-11-21 Office Visit [place] [id number] 10:12:53 10:12:53 [facility] 2015-09-23 2015-09-23 Office Visit [place] [id number] 09:05:20 09:05:20 [facility] 2015-09-16 2015-09-16 Historical [facility] [id number] 09:02:21 09:02:21 Summary [facility] 2015-03-18 2015-03-18 Office Visit [facility] [id number] 09:22:50 09:22:50 [facility] 2015-03-05 2015-03-05 Historical [facility] [id number] 08:56:57 08:56:57 Summary [facility] 2014-09-10 2014-09-10 Office Visit [place] [id number] 09:11:37 09:11:37 [facility] 2014-09-03 2014-09-03 Historical [facility] [id number] 08:53:25 08:53:25 Summary [facility] 2014-03-12 2014-03-12 Office Visit [place] [id number] 08:54:51 08:54:51 [facility] 2014-03-01 2014-03-01 Historical [facility] [id number] 08:55:26 08:55:26 Summary [facility] [place] 2013-08-22 2013-08-22 Office Visit [facility] [id number] [id number] 09:11:01 09:11:01 [facility] 2013-08-17 2013-08-17 Historical [facility] [id number] 09:01:03 09:01:03 Summary [facility] 2013-03-10 2013-03-10 Office Visit [place] [id number] 08:47:30 08:47:30 [facility] [place] 2013-02-24 2013-02-24 Historical [facility] [id number] 09:26:57 09:26:57 Summary [facility] 2012-09-02 2012-09-02 Office Visit [place] [id number] 08:58:52 08:58:52 [facility] 2012-08-24 2012-08-24 Historical [facility] [id number] 08:38:45 08:38:45 Summary [facility] 2012-03-04 2012-03-04 Office Visit [facility] [id number] 09:34:33 09:34:33 [facility] 2012-02-26 2012-02-26 Historical [facility] [id number] 08:36:27 08:36:27 Summary [facility] 2011-09-04 2011-09-04 Office Visit [facility] [id number] 09:15:13 09:15:13 [facility] 2011-08-28 2011-08-28 Historical [facility] [id number] 08:48:21 08:48:21 Summary [facility] 2011-02-27 2011-02-27 Office Visit [facility] [id number] 09:42:37 09:42:37 [facility] 2011-02-16 2011-02-16 Historical [facility] [id number] 09:29:16 09:29:16 Summary [facility] 2011-02-12 2011-02-12 Annotation/A [facility] [id number] 10:46:52 10:46:52 ddendum [facility] 2010-08-04 2010-08-04 Medications [facility] [id number] 10:14:45 10:14:45 [facility] 2010-07-25 2010-07-25 Office Visit [place] [id number] 14:07:39 14:07:39 [facility] 2010-07-23 2010-07-23 Historical [facility] [id number] 10:17:39 10:17:39 Summary [facility] 2010-07-23 2010-07-23 Historical [facility] [id number] 09:22:55 09:22:55 Summary [facility] 2010-06-27 2010-06-27 Office Visit [place] [id number] 10:06:20 10:06:20 [facility] 2010-06-27 2010-06-27 Office Visit [place] [id number] 09:05:03 09:05:03 [facility] 2010-06-03 2010-06-03 Office Visit [place] [id number] 09:06:20 09:06:20 [facility] 2010-03-07 2010-03-07 Office Visit [place] [id number] 09:23:42 09:23:42 [facility] 2010-02-27 2010-02-27 Medications [facility] [id number] 11:39:18 11:39:18 [facility] 2010-02-21 2010-02-21 Historical [facility] [id number] 08:50:31 08:50:31 Summary [facility] 2009-09-17 2009-09-17 Office Visit [place] [id number] 13:55:54 13:55:54 [facility] 2009-09-11 2009-09-11 Annotation/A [place] [id number] 14:41:09 14:41:09 ddendum [facility] 2009-09-11 2009-09-11 Office Visit [place] [id number] 13:56:00 13:56:00 [facility] 2009-08-30 2009-08-30 Office Visit [place] [id number] 10:38:13 10:38:13 [facility] [place] 2009-08-26 2009-08-26 Annotation/A [place] [id number] 09:40:41 09:40:41 ddendum [facility] [place] 2009-08-23 2009-08-23 Office Visit [place] [id number] 09:41:16 09:41:16 [facility] [place] 2009-08-23 2009-08-23 Historical [facility] [id number] 09:33:43 09:33:43 Summary [facility] [place] 2009-02-15 2009-02-15 Office Visit [facility] [id number] 11:41:53 11:41:53 [facility] [place] 2009-02-08 2009-02-08 Historical [facility] [id number] 09:02:52 09:02:52 Summary [facility] 2008-09-21 2008-09-21 Letter [facility] [id number] 15:55:11 15:55:11 [facility] 2008-09-11 2008-09-11 Letter [facility] [id number] 10:48:47 10:48:47 [facility] 2008-08-24 2008-08-24 Office Visit [facility] [id number] 11:56:30 11:56:30 [facility] 2008-08-03 2008-08-03 Office Visit [facility] [id number] 10:48:47 10:48:47 [facility] [place] 2008-07-23 2008-07-23 [facility] [facility] [id number] 14:10:42 14:10:42 Encounter [facility] 2008-07-20 2008-07-20 Historical [facility] [id number] 08:33:21 08:33:21 Summary [facility] [place] 2008-01-27 2008-01-27 Office Visit [facility] [id number] 10:26:36 10:26:36 [facility] [place] 2008-01-20 2008-01-20 Historical [facility] [id number] 08:55:00 08:55:00 Summary [facility] [place] 2007-08-23 2007-08-23 Letter [facility] [id number] 10:21:32 10:21:32 [facility] 2007-08-12 2007-08-12 Letter [facility] [id number] 11:43:50 11:43:50 [facility] 2007-08-05 2007-08-05 Office Visit [facility] [id number] 10:10:54 10:10:54 [facility] 2007-08-01 2007-08-01 Lab Visit [facility] [id number] 13:36:11 13:36:11 [facility] [place] 2007-08-01 2007-08-01 Historical [facility] [id number] 09:32:46 09:32:46 Summary [facility] 2007-02-04 2007-02-04 Office Visit [place] [id number] 15:16:16 15:16:16 [facility] 2007-01-28 2007-01-28 Historical [facility] [id number] 08:35:32 08:35:32 Summary [facility] 2006-09-24 2006-09-24 Phone [facility] [id number] 16:53:27 16:53:27 Encounter [facility] 2006-09-08 2006-09-08 Letter [facility] [id number] 15:46:58 15:46:58 [facility] 2006-08-06 2006-08-06 Office Visit [facility] [id number] 15:47:18 15:47:18 [facility] [place] 2005-07-27 2005-07-27 Letter [facility] [id number] 12:37:01 12:37:01 [facility] [place] 2005-07-27 2005-07-27 Annotation/A [place] [id number] 12:33:58 12:33:58 ddendum [facility] 2005-07-24 2005-07-24 Office Visit [place] [id number] 11:05:59 11:05:59 [facility] 2004-08-26 2004-08-26 Letter [facility] [id number] 11:53:18 11:53:18 [facility] 2004-08-04 2004-08-04 Letter [facility] [id number] 15:19:15 15:19:15 [facility] 2004-07-18 2004-07-18 Office Visit [facility] [id number] 15:30:35 15:30:35 [facility] 2003-08-06 2003-08-06 Letter [facility] [id number] 15:05:42 15:05:42 [facility] 2003-07-23 2003-07-23 Letter [facility] [id number] 22:12:27 22:12:27 [facility] 2003-07-19 2003-07-19 Office Visit [facility] [id number] 10:48:33 10:48:33 [facility] Family History Family Member Diagnosis Comments Start Date Stop Date Unspecified Breast Cancer Maternal Grandmother. Payers Payer Name Policy Type Policy Number Effective Date Expiration D ate Medicare OT BCBS Federal Employee OT Benefit Plan FEP STANDARD OPTION OT FORMULARY Plan of Treatment Planned Activity Planned Date Details Comments Future Scheduled Test [code = ] Future Scheduled Test [code = ] Future Scheduled Test [code = ] Future Scheduled Test [code = ] Future Scheduled Test [code = ] Future Scheduled Test [code = ] Future Scheduled Test [code = ] Future Scheduled Test [code = ] Future Scheduled Test [code = ] Future Scheduled Test [code = ] Future Scheduled Test [code = ] Future Scheduled Test [code = ] Future Scheduled Test [code = ] Future Scheduled Test [code = ] Future Scheduled Test [code = ] Future Scheduled Test [code = ] Future Scheduled Test [code = ] Future Scheduled Test [code = ] Future Scheduled Test [code = ] Future Scheduled Test [code = ] Future Scheduled Test [code = ] Future Scheduled Test [code = ] Future Scheduled Test [code = ] Future Scheduled Test [code = ] Future Scheduled Test [code = ] Future Scheduled Test [code = ] Future Scheduled Test [code = ] Future Scheduled Test [code = ] Future Scheduled Test [code = ] Future Scheduled Test [code = ] Future Scheduled Test [code = ] Future Scheduled Test [code = ] Future Scheduled Test [code = ] Future Scheduled Test [code = ] Future Scheduled Test [code = ] Future Scheduled Test [code = ] Future Scheduled Test [code = ] Future Scheduled Test [code = ] Future Scheduled Test [code = ] Future Scheduled Test [code = ] Future Scheduled Test [code = ] Future Scheduled Test [code = ] Future Scheduled Test [code = ] Future Scheduled Test [code = ] Future Scheduled Test [code = ] Future Scheduled Test [code = ] Future Scheduled Test [code = ] Future Scheduled Test [code = ] Future Scheduled Test [code = ] Future Scheduled Test [code = ] Future Scheduled Test [code = ] Future Scheduled Test [code = ] Future Scheduled Test [code = ] Future Scheduled Test [code = ] Future Scheduled Test [code = ] Future Scheduled Test [code = ] Future Scheduled Test [code = ] Future Scheduled Test [code = ] Future Scheduled Test [code = ] Future Scheduled Test [code = ] Future Scheduled Test [code = ] Future Scheduled Test [code = ] Future Scheduled Test [code = ] Future Scheduled Test [code = ] Future Scheduled Test [code = ] Future Scheduled Test [code = ] Future Scheduled Test [code = ] Social History Social Habit Start Date Stop Date Comments Tobacco Use Alcohol Use Drug Use Primary Control Method Non Smoker/No Tobacco Use Smoking Status Start Date Stop Date Never smoker Social History Observation Description Sex Female Vital Signs Vital Name Observation Time Observation Value Comments BP Diastolic 2019-02-16 00:00:00 85 mm[Hg] Height 2019-02-16 00:00:00 67 [in_i] BMI (Body Mass Index) 2019-02-16 00:00:00 29 kg/m2 BP Systolic 2019-02-16 00:00:00 124 mm[Hg] Body Weight 2019-02-16 00:00:00 185 [lb_av] Height 2018-08-18 00:00:00 67 [in_i] BMI (Body Mass Index) 2018-08-18 00:00:00 29 kg/m2 Body Weight 2018-08-18 00:00:00 185 [lb_av] BP Diastolic 2018-07-04 00:00:00 80 mm[Hg] Height 2018-07-04 00:00:00 67 [in_i] BMI (Body Mass Index) 2018-07-04 00:00:00 29 kg/m2 BP Systolic 2018-07-04 00:00:00 160 mm[Hg] Body Weight 2018-07-04 00:00:00 185 [lb_av] BP Diastolic 2018-05-27 00:00:00 92 mm[Hg] Height 2018-05-27 00:00:00 67 [in_i] BMI (Body Mass Index) 2018-05-27 00:00:00 29 kg/m2 BP Systolic 2018-05-27 00:00:00 162 mm[Hg] Body Weight 2018-05-27 00:00:00 185 [lb_av] BP Systolic 2018-04-07 09:46:52 148 mm[Hg] Patient Posi tion: Sitting; Cuff Location: Left A rm; Cuff Size: Stand quinten BP Diastolic 2018-04-07 09:46:52 90 mm[Hg] Patient Posi tion: Sitting; Cuff Location: Left A rm; Cuff Size: Stand quinten Weight 2018-04-07 09:46:52 199 [lb_av] Height 2018-04-07 09:46:52 66 [in_us] Body Mass Index Calculated 2018-04-07 09:46:52 32.12 kg/m2 BP Systolic 2018-02-07 13:15:20 128 mm[Hg] Patient Posi tion: Sitting; Cuff Location: Left A rm; Cuff Size: Stand quinten BP Diastolic 2018-02-07 13:15:20 78 mm[Hg] Patient Posi tion: Sitting; Cuff Location: Left A rm; Cuff Size: Stand quinten Weight 2018-02-07 13:15:20 197.375 [lb_av] Height 2018-02-07 13:15:20 66 [in_us] Body Mass Index Calculated 2018-02-07 13:15:20 31.86 kg/m2 BP Systolic 2017-11-08 09:30:43 128 mm[Hg] Patient Posi tion: Sitting; Cuff Location: Left A rm; Cuff Size: Stand quinten BP Diastolic 2017-11-08 09:30:43 62 mm[Hg] Patient Posi tion: Sitting; Cuff Location: Left A rm; Cuff Size: Stand quinten Weight 2017-11-08 09:30:43 193 [lb_av] Height 2017-11-08 09:30:43 66 [in_us] Body Mass Index Calculated 2017-11-08 09:30:43 31.15 kg/m2 BP Systolic 2017-10-15 09:05:16 124 mm[Hg] Patient Posi tion: Sitting; Cuff Location: Left A rm; Cuff Size: Stand quinten BP Diastolic 2017-10-15 09:05:16 68 mm[Hg] Patient Posi tion: Sitting; Cuff Location: Left A rm; Cuff Size: Stand quinten Weight 2017-10-15 09:05:16 191.375 [lb_av] Height 2017-10-15 09:05:16 66 [in_us] Body Mass Index Calculated 2017-10-15 09:05:16 30.89 kg/m2 BP Systolic 2017-03-23 09:24:55 132 mm[Hg] Patient Posi tion: Sitting; Cuff Location: Left A rm; Cuff Size: Stand quinten BP Diastolic 2017-03-23 09:24:55 78 mm[Hg] Patient Posi tion: Sitting; Cuff Location: Left A rm; Cuff Size: Stand quinten Weight 2017-03-23 09:24:55 189.375 [lb_av] Height 2017-03-23 09:24:55 66 [in_us] Body Mass Index Calculated 2017-03-23 09:24:55 30.57 kg/m2 BP Systolic 2016-09-24 09:19:32 132 mm[Hg] Patient Posi tion: Sitting; Cuff Location: Left A rm; Cuff Size: Stand quinten BP Diastolic 2016-09-24 09:19:32 86 mm[Hg] Patient Posi tion: Sitting; Cuff Location: Left A rm; Cuff Size: Stand quinten Weight 2016-09-24 09:19:32 189.375 [lb_av] Height 2016-09-24 09:19:32 66 [in_us] Body Mass Index Calculated 2016-09-24 09:19:32 30.57 kg/m2 Temperature 2016-03-20 09:13:23 98.3 [degF] BP Systolic 2016-03-20 09:13:23 132 mm[Hg] BP Diastolic 2016-03-20 09:13:23 88 mm[Hg] Weight 2016-03-20 09:13:23 135.375 [lb_av] Height 2016-03-20 09:13:23 66 [in_us] Body Mass Index Calculated 2016-03-20 09:13:23 21.85 kg/m2 BP Systolic 2015-12-24 09:53:54 124 mm[Hg] Patient Posi tion: Sitting BP Diastolic 2015-12-24 09:53:54 80 mm[Hg] Patient Posi tion: Sitting Weight 2015-12-24 09:53:54 176.5 [lb_av] Height 2015-12-24 09:53:54 66 [in_us] Body Mass Index Calculated 2015-12-24 09:53:54 28.49 kg/m2 BP Systolic 2015-11-21 10:14:48 126 mm[Hg] Patient Posi tion: Sitting; Cuff Location: Left A rm; Cuff Size: Stand quinten BP Diastolic 2015-11-21 10:14:48 80 mm[Hg] Patient Posi tion: Sitting; Cuff Location: Left A rm; Cuff Size: Stand quinten Weight 2015-11-21 10:14:48 176.25 [lb_av] Height 2015-11-21 10:14:48 66 [in_us] Body Mass Index Calculated 2015-11-21 10:14:48 28.45 kg/m2 BP Systolic 2015-09-23 09:07:31 114 mm[Hg] Patient Posi tion: Sitting; Cuff Location: Left A rm; Cuff Size: Stand quinten BP Diastolic 2015-09-23 09:07:31 86 mm[Hg] Patient Posi tion: Sitting; Cuff Location: Left A rm; Cuff Size: Stand quinten Weight 2015-09-23 09:07:31 201 [lb_av] Height 2015-09-23 09:07:31 66.5 [in_us] Body Mass Index Calculated 2015-09-23 09:07:31 31.96 kg/m2 BP Systolic 2015-03-18 09:27:33 128 mm[Hg] Patient Posi tion: Sitting; Cuff Location: Left A rm; Cuff Size: Stand quinten BP Diastolic 2015-03-18 09:27:33 76 mm[Hg] Patient Posi tion: Sitting; Cuff Location: Left A rm; Cuff Size: Stand quinten Weight 2015-03-18 09:27:33 193.5 [lb_av] Height 2015-03-18 09:27:33 66.5 [in_us] Body Mass Index Calculated 2015-03-18 09:27:33 30.76 kg/m2 BP Systolic 2014-09-10 09:11:43 124 mm[Hg] BP Diastolic 2014-09-10 09:11:43 80 mm[Hg] Weight 2014-09-10 09:11:43 199 [lb_av] Height 2014-09-10 09:11:43 66.5 [in_us] Body Mass Index Calculated 2014-09-10 09:11:43 31.64 kg/m2 BP Systolic 2014-03-12 08:56:59 126 mm[Hg] Patient Posi tion: Sitting; Cuff Location: Left A rm; Cuff Size: Stand quinten BP Diastolic 2014-03-12 08:56:59 86 mm[Hg] Patient Posi tion: Sitting; Cuff Location: Left A rm; Cuff Size: Stand quinten Weight 2014-03-12 08:56:59 200 [lb_av] Height 2014-03-12 08:56:59 66.5 [in_us] Body Mass Index Calculated 2014-03-12 08:56:59 31.8 kg/m2 BP Systolic 2013-08-22 09:14:40 170 mm[Hg] Patient Posi tion: Sitting; Cuff Location: Left A rm; Cuff Size: Stand quinten BP Diastolic 2013-08-22 09:14:40 80 mm[Hg] Patient Posi tion: Sitting; Cuff Location: Left A rm; Cuff Size: Stand quinten Weight 2013-08-22 09:14:40 195 [lb_av] BP Systolic 2013-03-10 08:50:49 142 mm[Hg] Patient Posi tion: Sitting; Cuff Location: Left A rm; Cuff Size: Stand quinten BP Diastolic 2013-03-10 08:50:49 80 mm[Hg] Patient Posi tion: Sitting; Cuff Location: Left A rm; Cuff Size: Stand quinten Weight 2013-03-10 08:50:49 193 [lb_av] Height 2013-03-10 08:50:49 66.5 [in_us] Body Mass Index Calculated 2013-03-10 08:50:49 30.68 kg/m2 BP Systolic 2012-09-02 09:03:03 148 mm[Hg] Patient Posi tion: Sitting; Cuff Location: Left A rm; Cuff Size: Stand quinten BP Diastolic 2012-09-02 09:03:03 80 mm[Hg] Patient Posi tion: Sitting; Cuff Location: Left A rm; Cuff Size: Stand quinten Weight 2012-09-02 09:03:03 189 [lb_av] Height 2012-09-02 09:03:03 61.75 [in_us] Body Mass Index Calculated 2012-09-02 09:03:03 34.85 kg/m2 Temperature 2012-03-04 09:39:59 97.5 [degF] Method: Oral BP Systolic 2012-03-04 09:39:59 144 mm[Hg] Patient Posi tion: Sitting; Cuff Location: Left A rm; Cuff Size: Stand quinetn BP Diastolic 2012-03-04 09:39:59 90 mm[Hg] Patient Posi tion: Sitting; Cuff Location: Left A rm; Cuff Size: Stand quinten Weight 2012-03-04 09:39:59 183.1875 [lb_av] Height 2012-03-04 09:39:59 61.75 [in_us] Body Mass Index Calculated 2012-03-04 09:39:59 33.78 kg/m2 Temperature 2011-09-04 09:17:19 98.2 [degF] Method: Oral BP Systolic 2011-09-04 09:17:19 142 mm[Hg] Patient Posi tion: Sitting; Cuff Location: Left A rm; Cuff Size: Stand quinten BP Diastolic 2011-09-04 09:17:19 90 mm[Hg] Patient Posi tion: Sitting; Cuff Location: Left A rm; Cuff Size: Stand quinten Weight 2011-09-04 09:17:19 182.125 [lb_av] Height 2011-09-04 09:17:19 67 [in_us] Body Mass Index Calculated 2011-09-04 09:17:19 28.52 kg/m2 Temperature 2011-02-27 09:43:01 97.9 [degF] Method: Oral BP Systolic 2011-02-27 09:43:01 120 mm[Hg] Patient Posi tion: Sitting; Cuff Location: Left A rm; Cuff Size: Stand quinten BP Diastolic 2011-02-27 09:43:01 80 mm[Hg] Patient Posi tion: Sitting; Cuff Location: Left A rm; Cuff Size: Stand quinten Weight 2011-02-27 09:43:01 180 [lb_av] Height 2011-02-27 09:43:01 67 [in_us] Body Mass Index Calculated 2011-02-27 09:43:01 28.19 kg/m2 BP Systolic 2010-07-25 14:07:57 132 mm[Hg] Patient Posi tion: Sitting; Cuff Location: Left A rm; Cuff Size: Stand quinten BP Diastolic 2010-07-25 14:07:57 80 mm[Hg] Patient Posi tion: Sitting; Cuff Location: Left A rm; Cuff Size: Stand quinten Weight 2010-07-25 14:07:57 180 [lb_av] Height 2010-07-25 14:07:57 67 [in_us] Body Mass Index Calculated 2010-07-25 14:07:57 28.19 kg/m2 Temperature 2010-06-27 09:15:31 97.5 [degF] Respiration Rate 2010-06-27 09:15:31 20 /min Pattern: Un labored BP Systolic 2010-06-27 09:15:31 132 mm[Hg] Patient Posi tion: Sitting; Cuff Location: Left A rm; Cuff Size: Stand quinten BP Diastolic 2010-06-27 09:15:31 80 mm[Hg] Patient Posi tion: Sitting; Cuff Location: Left A rm; Cuff Size: Stand quinten Weight 2010-06-27 09:15:31 179 [lb_av] Height 2010-06-27 09:15:31 66 [in_us] Body Mass Index Calculated 2010-06-27 09:15:31 28.89 kg/m2 Temperature 2010-06-03 09:06:26 98.5 [degF] Pulse 2010-06-03 09:06:26 60 /min Pattern: Reg ular Respiration Rate 2010-06-03 09:06:26 16 /min Pattern: Un labored BP Systolic 2010-06-03 09:06:26 140 mm[Hg] Patient Posi tion: Sitting; Cuff Location: Left A rm; Cuff Size: Stand quinten BP Diastolic 2010-06-03 09:06:26 80 mm[Hg] Patient Posi tion: Sitting; Cuff Location: Left A rm; Cuff Size: Stand quinten Weight 2010-06-03 09:06:26 179 [lb_av] Height 2010-06-03 09:06:26 67 [in_us] Body Mass Index Calculated 2010-06-03 09:06:26 28.04 kg/m2 BP Systolic 2010-03-07 09:26:38 120 mm[Hg] Patient Posi tion: Sitting; Cuff Location: Left A rm; Cuff Size: Stand quinten BP Diastolic 2010-03-07 09:26:38 74 mm[Hg] Patient Posi tion: Sitting; Cuff Location: Left A rm; Cuff Size: Stand quinten Weight 2010-03-07 09:26:38 178 [lb_av] Height 2010-03-07 09:26:38 67 [in_us] Body Mass Index Calculated 2010-03-07 09:26:38 27.88 kg/m2 Temperature 2009-08-30 10:50:58 97.3 [degF] BP Systolic 2009-08-30 10:50:58 118 mm[Hg] Patient Posi tion: Sitting; Cuff Location: Left A rm; Cuff Size: Stand quinten BP Diastolic 2009-08-30 10:50:58 76 mm[Hg] Patient Posi tion: Sitting; Cuff Location: Left A rm; Cuff Size: Stand quinten Weight 2009-08-30 10:50:58 180 [lb_av] Height 2009-08-30 10:50:58 67 [in_us] Body Mass Index Calculated 2009-08-30 10:50:58 28.19 kg/m2 BP Systolic 2009-08-23 09:42:27 120 mm[Hg] Patient Posi tion: Sitting; Cuff Location: Left A rm; Cuff Size: Stand quinten BP Diastolic 2009-08-23 09:42:27 78 mm[Hg] Patient Posi tion: Sitting; Cuff Location: Left A rm; Cuff Size: Stand quinten Weight 2009-08-23 09:42:27 180 [lb_av] BP Systolic 2009-02-15 11:46:10 116 mm[Hg] Patient Posi tion: Sitting; Cuff Location: Left A rm; Cuff Size: Stand quinten BP Diastolic 2009-02-15 11:46:10 78 mm[Hg] Patient Posi tion: Sitting; Cuff Location: Left A rm; Cuff Size: Stand quinten Weight 2009-02-15 11:46:10 180 [lb_av] Height 2009-02-15 11:46:10 67 [in_us] Body Mass Index Calculated 2009-02-15 11:46:10 28.19 kg/m2 Temperature 2008-08-24 11:58:00 98.4 [degF] Method: Unde fined BP Systolic 2008-08-24 11:58:00 128 mm[Hg] Patient Posi tion: Undefined; Cuff Location: Undefi jasmine; Cuff Size: Undef ined BP Diastolic 2008-08-24 11:58:00 76 mm[Hg] Patient Posi tion: Undefined; Cuff Location: Undefi jasmine; Cuff Size: Undef ined Weight 2008-08-24 11:58:00 179 [lb_av] Height 2008-08-24 11:58:00 67 [in_us] Body Mass Index Calculated 2008-08-24 11:58:00 28.04 kg/m2 Head Circumference 2008-08-24 11:58:00 0.00 cm Temperature 2008-08-03 10:49:00 97.1 [degF] Method: Unde fined BP Systolic 2008-08-03 10:49:00 130 mm[Hg] Patient Posi tion: Undefined; Cuff Location: Undefi jasmine; Cuff Size: Undef ined BP Diastolic 2008-08-03 10:49:00 82 mm[Hg] Patient Posi tion: Undefined; Cuff Location: Undefi jasmine; Cuff Size: Undef ined Weight 2008-08-03 10:49:00 182 [lb_av] Height 2008-08-03 10:49:00 67 [in_us] Body Mass Index Calculated 2008-08-03 10:49:00 28.5 kg/m2 Head Circumference 2008-08-03 10:49:00 0.00 cm Temperature 2007-08-05 10:14:00 98.1 [degF] Method: Unde fined BP Systolic 2007-08-05 10:14:00 122 mm[Hg] Patient Posi tion: Undefined; Cuff Location: Undefi jasmine; Cuff Size: Undef ined BP Diastolic 2007-08-05 10:14:00 80 mm[Hg] Patient Posi tion: Undefined; Cuff Location: Undefi jasmine; Cuff Size: Undef ined Weight 2007-08-05 10:14:00 176 [lb_av] Height 2007-08-05 10:14:00 67 [in_us] Body Mass Index Calculated 2007-08-05 10:14:00 27.57 kg/m2 Head Circumference 2007-08-05 10:14:00 0.00 cm BP Systolic 2006-08-06 15:48:00 120 mm[Hg] Patient Posi tion: Undefined; Cuff Location: Undefi jasmine; Cuff Size: Undef ined BP Diastolic 2006-08-06 15:48:00 80 mm[Hg] Patient Posi tion: Undefined; Cuff Location: Undefi jasmine; Cuff Size: Undef ined Weight 2006-08-06 15:48:00 173 [lb_av] Height 2006-08-06 15:48:00 67 [in_us] Body Mass Index Calculated 2006-08-06 15:48:00 27.1 kg/m2 Head Circumference 2006-08-06 15:48:00 0.00 cm Temperature 2005-07-24 11:06:00 97.1 [degF] Method: Unde fined BP Systolic 2005-07-24 11:06:00 110 mm[Hg] Patient Posi tion: Undefined; Cuff Location: Undefi jasmine; Cuff Size: Undef ined BP Diastolic 2005-07-24 11:06:00 70 mm[Hg] Patient Posi tion: Undefined; Cuff Location: Undefi jasmine; Cuff Size: Undef ined Weight 2005-07-24 11:06:00 170 [lb_av] Height 2005-07-24 11:06:00 67 [in_us] Body Mass Index Calculated 2005-07-24 11:06:00 26.63 kg/m2 Head Circumference 2005-07-24 11:06:00 0.00 cm Temperature 2004-07-18 15:31:00 97.2 [degF] Method: Unde fined BP Systolic 2004-07-18 15:31:00 120 mm[Hg] Patient Posi tion: Undefined; Cuff Location: Undefi jasmine; Cuff Size: Undef ined BP Diastolic 2004-07-18 15:31:00 80 mm[Hg] Patient Posi tion: Undefined; Cuff Location: Undefi jasmine; Cuff Size: Undef ined Weight 2004-07-18 15:31:00 170 [lb_av] Height 2004-07-18 15:31:00 67 [in_us] Body Mass Index Calculated 2004-07-18 15:31:00 26.63 kg/m2 Head Circumference 2004-07-18 15:31:00 0.00 cm Temperature 2003-07-19 10:48:00 97.6 [degF] Method: Unde fined BP Systolic 2003-07-19 10:48:00 110 mm[Hg] Patient Posi tion: Sitting; Cuff Location: Undefi jasmine; Cuff Size: Undef ined BP Diastolic 2003-07-19 10:48:00 80 mm[Hg] Patient Posi tion: Sitting; Cuff Location: Undefi jasmine; Cuff Size: Undef ined Weight 2003-07-19 10:48:00 167 [lb_av] Height 2003-07-19 10:48:00 67 [in_us] Body Mass Index Calculated 2003-07-19 10:48:00 26.16 kg/m2 Head Circumference 2003-07-19 10:48:00 0.00 cm Hospital Discharge Instructions No data available for this sectionNo data available for this section1. Total shoulder replacement XR, shoulder Discussion Note There is no sign of complication. H er motion is still quite limited. She says this is all she will.after physical therapy. She will follow-up in a year with repeat radiographs. She is happy with the surgery and that her pain is resolved. P atient educational handouts: No information available.No Instruction Information AvailableNo Instruction Information AvailableNo Instruction Information AvailableNo Instruction Information Available
[2020-06-04] MEDS: HYDROMORPHONE HCL INJ/PF 2 MG/ML AMPULE IV PRN ×2 (14:01→20:05)
[2020-06-04] MEDS ORDERED: IBUPROFEN 400 MG TABLET PO PRN (14:20)
[2020-06-04] MEDS: ACETAMINOPHEN 325 MG TABLET PO PRN (17:07)
[2020-06-04] MEDS: ONDANSETRON HCL INJ/PF 4 MG/2 ML SDV IV PRN (18:28)
--- NOTE | 2020-06-04 18:44 | PDOC PROGRESS REPORT ---
Subjective Date:: 06/04/20 Subjective:: Patient feels better today. She would like to try to get off the narcotics and try something else besides the Dilaudid. She tolerated her clear liquid diet today with breakfast and lunch. Reason For Visit: ACUTE PANCREATITIS Physical Exam Vital Signs: Temp Pulse Resp BP Pulse Ox 97.7 F 75 18 159/62 H 91 L 06/04/20 15:52 06/04/20 15:52 06/04/20 15:52 06/04/20 15:52 06/04/20 15:52 Intake & Output 06/03/20 06/04/20 06/05/20 06:59 06:59 06:59 Intake Total 4000 1650 630 Output Total 1150 600 Balance 4000 500 30 Weight 85 kg 84.2 kg General appearance: PRESENT: no acute distress, cooperative Neck exam: ABSENT: JVD Respiratory exam: PRESENT: clear to auscultation regine, unlabored. ABSENT: tachypnea, wheezes Cardiovascular exam: PRESENT: RRR, +S1, +S2. ABSENT: tachycardia GI/Abdominal exam: PRESENT: soft, tenderness. ABSENT: distended, firm, guarding, rebound, rigid Neurological exam: PRESENT: alert, awake, oriented to person, oriented to place, oriented to time, oriented to situation Psychiatric exam: ABSENT: agitated, anxious Results Laboratory Results: 06/04/20 05:00 06/04/20 05:00 06/04/20 06/04/20 05:00 05:00 WBC 17.3 H RBC 4.11 Hgb 11.9 L Hct 35.0 L MCV 85 MCH 28.9 MCHC 33.9 RDW 13.8 Plt Count 197 Seg Neutrophils % Not Reportable Sodium 136.8 L Potassium 3.9 Chloride 102 Carbon Dioxide 27 Anion Gap 8 BUN 12 Creatinine 0.45 L Est GFR ( Amer) > 60 Glucose 122 H Calcium 8.6 Phosphorus 3.1 Magnesium 1.9 Total Bilirubin 1.0 AST 67 H Alkaline Phosphatase 286 H Total Protein 5.6 L Albumin 3.0 L Impressions: Abdomen/Pelvis CT 06/02/20 00:35 IMPRESSION: Acute pancreatitis. Abdomen MRI 06/02/20 12:28 IMPRESSION: No ductal stones -defects identified. Diffuse inflammatory changes - fluid around the pancreas. Catheter Placement 06/03/20 00:00 IMPRESSION: IMAGE(S) OBTAINED DURING PROCEDURE. Fluoroscopy 06/03/20 00:00 IMPRESSION: IMAGE(S) OBTAINED DURING PROCEDURE. Assessment and Plan - Diagnosis (1) Acute pancreatitis Qualifiers: Pancreatitis type: unspecified pancreatitis type Acute pancreatitis complication: no infection or necrosis Qualified Code(s): K85.90 - Acute pancreatitis without necrosis or infection, unspecified Is this a current diagnosis for this admission?: Yes Plan: Acute gallstone pancreatitis. - s/p lap juan ramon May 28 with lipase of 59,[address] showed evidence of acute pancreatitis. MRCP shows peripancreatic fluid, acute pancreatitis but no evidence of necrosis/infection. Also normal common bile duct. ERCP revealed sludge in the common bile duct-extraction and sphincterotomy were performed Continue IV fluids for today. Labs look to be improving. Tolerated clear liquid diet so we will advance to GI soft diet for dinner. Continue pain medications. (2) Transaminitis Is this a current diagnosis for this admission?: Yes Plan: 2/2 post juan ramon complications, possible retained stone. Transaminases and bilirubin have shown remarkable improvement. Will monitor. (3) Leukocytosis Qualifiers: Leukocytosis type: unspecified Qualified Code(s): D72.829 - Elevated white blood cell count, unspecified Is this a current diagnosis for this admission?: Yes Plan: I suspect that this is likely inflammatory secondary to patient's acute pancreatitis. Notably no evidence of intra-abdominal or peripancreatic infection noted on abdominal CT and MRCP. Blood cultures are currently negative after 24 hours so I will go ahead and discontinue IV antibiotics. (4) Status post laparoscopic cholecystectomy Is this a current diagnosis for this admission?: Yes - Time Time Spent with patient: 15-24 minutes Anticipated Discharge Disposition: Home, Self Care Anticipated Discharge Timeframe: within 36 hours
[2020-06-05] MEDS: HYDROMORPHONE HCL INJ/PF 2 MG/ML AMPULE IV PRN ×4 (00:11→16:25)
[2020-06-05] MEDS: RINGERS SOLUTION,LACTATED 1,000 ML IV PRN ×2 (04:23→16:11)
[2020-06-05] MEDS: ONDANSETRON HCL INJ/PF 4 MG/2 ML SDV IV PRN (04:23)
[2020-06-05 05:09] LABS: ABSOLUTE BASOPHILS # (AUTO) 0.1 10^3/uL (0.0-0.2); ABSOLUTE EOSINOPHILS # (AUTO) 0.2 10^3/uL (0.0-0.6); ABSOLUTE NEUT (AUTO) 12.8 10^3/uL (1.7-8.2); BASOPHILS % (AUTO) 0.3 % (0-2); EOSINOPHILS % (AUTO) 1.5 % (0-6); HEMATOCRIT 35.7 % (36.0-47.0); HEMOGLOBIN 11.9 g/dL (12.0-15.5); LYMPHOCYTES % (AUTO) 6.8 % (13-45); MEAN CORPUSCULAR HEMOGLOBIN 28.5 pg (27.0-33.4); MEAN CORPUSCULAR HGB CONC 33.5 g/dL (32.0-36.0); MEAN CORPUSCULAR VOLUME 85 fl (80-97); MONOCYTES % (AUTO) 6.8 % (3-13); PLATELET COUNT 216 10^3/uL (150-450); RED BLOOD COUNT 4.18 10^6/uL (3.72-5.28); RED CELL DISTRIBUTION WIDTH 13.8 % (11.5-14.0); SEGMENTED NEUTROPHILS % (AUTO) 84.6 % (42-78); TOTAL CELLS COUNTED % (AUTO) 100 %; WHITE BLOOD COUNT 15.2 10^3/uL (4.0-10.5)
[2020-06-05 05:36] LABS: ALKALINE PHOSPHATASE 255 U/L (38-126); ANION GAP 7 (5-19); ASPARTATE AMINO TRANSFERASE 30 U/L (14-36); BILIRUBIN,DIRECT 0.4 mg/dL (0.0-0.4); BILIRUBIN,TOTAL 0.7 mg/dL (0.2-1.3); BLOOD UREA NITROGEN 12 mg/dL (7-20); CARBON DIOXIDE 28 mmol/L (22-30); CHLORIDE 101 mmol/L (98-107); GLUCOSE 111 mg/dL (75-110); POTASSIUM 3.7 mmol/L (3.6-5.0); TOTAL PROTEIN 5.6 g/dL (6.3-8.2)
[2020-06-05] MEDS: FAMOTIDINE INJ/PF 20 MG/2 ML SDV IV SCH ×2 (09:19→22:46)
[2020-06-05] MEDS: ENOXAPARIN SODIUM INJ 40 MG/0.4 ML DISP.SYRIN SUBCUT SCH (09:20)
--- NOTE | 2020-06-05 11:43 | PDOC PROGRESS REPORT ---
Subjective Date:: 06/05/20 Subjective:: Patient had a good amount of pain after having mechanical soft diet with dinner last night. As a result she was reluctant to eat breakfast this morning. I will de-escalate her diet back to full liquid diet. This morning her pain feels better but she has not eating any meals. She is not having any nausea or vomiting. She denies shortness of breath. Reason For Visit: ACUTE PANCREATITIS Physical Exam Vital Signs: Temp Pulse Resp BP Pulse Ox 99.6 F 90 20 174/71 H 90 L 06/05/20 07:24 06/05/20 07:24 06/05/20 07:24 06/05/20 07:24 06/05/20 07:24 Intake & Output 06/04/20 06/05/20 06/06/20 06:59 06:59 06:59 Intake Total 1650 1630 100 Output Total 1150 1250 400 Balance 500 380 -300 Weight 85 kg 87.4 kg 89.7 kg General appearance: PRESENT: no acute distress, cooperative Neck exam: ABSENT: JVD Respiratory exam: PRESENT: crackles, symmetrical, unlabored. ABSENT: tachypnea, wheezes Cardiovascular exam: PRESENT: RRR, +S1, +S2. ABSENT: tachycardia GI/Abdominal exam: PRESENT: soft, tenderness - Right upper quadrant. ABSENT: rebound, rigid Neurological exam: PRESENT: alert, awake, oriented to person, oriented to place, oriented to time, oriented to situation Results Laboratory Results: 06/05/20 04:56 06/05/20 04:56 06/05/20 06/05/20 04:56 04:56 WBC 15.2 H RBC 4.18 Hgb 11.9 L Hct 35.7 L MCV 85 MCH 28.5 MCHC 33.5 RDW 13.8 Plt Count 216 Seg Neutrophils % 84.6 H Sodium 136.4 L Potassium 3.7 Chloride 101 Carbon Dioxide 28 Anion Gap 7 BUN 12 Creatinine 0.44 L Est GFR ( Amer) > 60 Glucose 111 H Calcium 8.0 L Magnesium 1.9 Total Bilirubin 0.7 AST 30 Alkaline Phosphatase 255 H Total Protein 5.6 L Albumin 3.0 L Impressions: Abdomen/Pelvis CT 06/02/20 00:35 IMPRESSION: Acute pancreatitis. Abdomen MRI 06/02/20 12:28 IMPRESSION: No ductal stones -defects identified. Diffuse inflammatory changes - fluid around the pancreas. Catheter Placement 06/03/20 00:00 IMPRESSION: IMAGE(S) OBTAINED DURING PROCEDURE. Fluoroscopy 06/03/20 00:00 IMPRESSION: IMAGE(S) OBTAINED DURING PROCEDURE. Assessment and Plan - Diagnosis (1) Acute pancreatitis Qualifiers: Pancreatitis type: unspecified pancreatitis type Acute pancreatitis complication: no infection or necrosis Qualified Code(s): K85.90 - Acute pancreatitis without necrosis or infection, unspecified Is this a current diagnosis for this admission?: Yes Plan: Acute gallstone pancreatitis. - s/p lap juan ramon May 28 with lipase of 59,[address] showed evidence of acute pancreatitis. MRCP shows peripancreatic fluid, acute pancreatitis but no evidence of necrosis/infection. Also normal common bile duct. ERCP revealed sludge in the common bile duct-extraction and sphincterotomy were performed De-escalate diet back to full liquid diet. Did not tolerate GI soft diet yesterday evening. I will decrease her fluid rate from 125cc to 50 cc/h given development of crackles on lung auscultation. Currently not hypoxic however. Incentive spirometer and ambulation will be encouraged. Should she develop any respiratory issues, will discontinue IV fluids. (2) Transaminitis Is this a current diagnosis for this admission?: Yes Plan: 2/2 post juan ramon complications, possible retained stone. Transaminases and bilirubin have shown remarkable improvement and almost back to normal at this point (3) Leukocytosis Qualifiers: Leukocytosis type: unspecified Qualified Code(s): D72.829 - Elevated white blood cell count, unspecified Is this a current diagnosis for this admission?: Yes Plan: I suspect that this is likely inflammatory secondary to patient's acute pancreatitis. Notably no evidence of intra-abdominal or peripancreatic infection noted on abdominal CT and MRCP. Blood cultures are currently negative after 24 hours so I will go ahead and discontinue IV antibiotics. Check chest x-ray (4) Status post laparoscopic cholecystectomy Is this a current diagnosis for this admission?: Yes - Time Time Spent with patient: 15-24 minutes Anticipated Discharge Disposition: Home, Self Care Anticipated Discharge Timeframe: within 36 hours
--- NOTE | 2020-06-05 14:18 | RADIOLOGY REPORT (SQ) ---
EXAM DESCRIPTION: CHEST 2 VIEWS IMAGES COMPLETED DATE/TIME: 06/05/2020 2:00 pm REASON FOR STUDY: crackles COMPARISON: 02/03/2018. EXAM PARAMETERS: NUMBER OF VIEWS: two views TECHNIQUE: Digital Frontal and Lateral radiographic views of the chest acquired. RADIATION DOSE: NA LIMITATIONS: none FINDINGS: LUNGS AND PLEURA: Diffuse interstitial prominence. Scattered linear and curvilinear densi ties in the lung bases. Small pleural effusions. MEDIASTINUM AND HILAR STRUCTURES: No masses or contour abnormalities. HEART AND VASCULAR STRUCTURES: Mild cardiomegaly. No evidence for failure. BONES: No acute findings. HARDWARE: None in the chest. Hardware in the left shoulder. OTHER: No other significant finding. IMPRESSION: MILD CARDIOMEGALY. INTERSTITIAL PROMINENCE MAY BE DUE TO DEVELOPING INTERSTITIAL EDEMA. SMALL PLEURAL EFFUSIONS. BASILAR ATELECTASIS. TECHNICAL DOCUMENTATION: JOB ID: [id number] 2010 [employer]- All Rights Reserved Reading location - IP/workstation name: [email or web address]
[2020-06-05] MEDS ORDERED: NIFEDIPINE 10 MG CAPSULE PO ONE (21:30)
[2020-06-06] MEDS: HYDROMORPHONE HCL INJ/PF 2 MG/ML AMPULE IV PRN (07:32)
[2020-06-06 08:06] LABS: ALBUMIN 2.6 g/dL (3.5-5.0); ALKALINE PHOSPHATASE 202 U/L (38-126); ANION GAP 8 (5-19); ASPARTATE AMINO TRANSFERASE 29 U/L (14-36); BILIRUBIN,DIRECT 0.5 mg/dL (0.0-0.4); BILIRUBIN,TOTAL 0.9 mg/dL (0.2-1.3); BLOOD UREA NITROGEN 8 mg/dL (7-20); CALCIUM 8.1 mg/dL (8.4-10.2); CARBON DIOXIDE 26 mmol/L (22-30); CHLORIDE 99 mmol/L (98-107); GLUCOSE 89 mg/dL (75-110); TOTAL PROTEIN 5.1 g/dL (6.3-8.2)
[2020-06-06 09:23] LABS: ABSOLUTE BASOPHILS # (AUTO) 0.1 10^3/uL (0.0-0.2); ABSOLUTE EOSINOPHILS # (AUTO) 0.2 10^3/uL (0.0-0.6); ABSOLUTE LYMPHOCYTES (AUTO) 1.3 10^3/uL (0.5-4.7); ABSOLUTE MONOCYTES (AUTO) 1.4 10^3/uL (0.1-1.4); ABSOLUTE NEUT (AUTO) 13.4 10^3/uL (1.7-8.2); BASOPHILS % (AUTO) 0.4 % (0-2); EOSINOPHILS % (AUTO) 1.4 % (0-6); HEMOGLOBIN 11.4 g/dL (12.0-15.5); MEAN CORPUSCULAR HEMOGLOBIN 28.4 pg (27.0-33.4); MEAN CORPUSCULAR HGB CONC 33.6 g/dL (32.0-36.0); MEAN CORPUSCULAR VOLUME 85 fl (80-97); MONOCYTES % (AUTO) 8.5 % (3-13); PLATELET COUNT 245 10^3/uL (150-450); RED BLOOD COUNT 4.03 10^6/uL (3.72-5.28); RED CELL DISTRIBUTION WIDTH 13.9 % (11.5-14.0); SEGMENTED NEUTROPHILS % (AUTO) 81.7 % (42-78); TOTAL CELLS COUNTED % (AUTO) 100 %; WHITE BLOOD COUNT 16.4 10^3/uL (4.0-10.5)
[2020-06-06] MEDS: FAMOTIDINE INJ/PF 20 MG/2 ML SDV IV SCH (10:36)
[2020-06-06] MEDS: ENOXAPARIN SODIUM INJ 40 MG/0.4 ML DISP.SYRIN SUBCUT SCH (10:36)
[2020-06-06] MEDS ORDERED: FUROSEMIDE INJ/PF 20 MG/2 ML SDV IV ONE (11:32)
[2020-06-06] MEDS: ACETAMINOPHEN 325 MG TABLET PO PRN (12:10)
[2020-06-06 13:21] VITALS: BP 159/78
--- NOTE | 2020-06-06 14:01 | PDOC DISCHARGE SUMMARY ---
Impression - Admit/DC Date/PCP Admission Date/Primary Care Provider: 06/03/20 11:16 CHIO MCINTYRE PA-C Discharge Date: 06/06/20 - Discharge Diagnosis (1) Acute pancreatitis Is this a current diagnosis for this admission?: Yes (2) Transaminitis Is this a current diagnosis for this admission?: Yes (3) Leukocytosis Is this a current diagnosis for this admission?: Yes (4) Status post laparoscopic cholecystectomy Is this a current diagnosis for this admission?: Yes - Additional Information Resuscitation Status: Full Code Discharge Diet: Other (Comments) Discharge Activity: Activity As Tolerated Referrals: SHREYAS WALKER MD [ACTIVE STAFF] - Follow up as needed Prescriptions: Oxycodone HCl/Acetaminophen [Percocet 5-325 mg Tablet] 1 tab PO Q6HP PRN #10 tab PRN Reason: Home Medications: Acetaminophen [Tylenol 325 mg Tablet] 650 mg PO Q4HP PRN 02/17/18 Atorvastatin Calcium [Lipitor 10 mg Tablet] 10 mg PO QHS 02/17/18 Escitalopram Oxalate [Lexapro 10 mg Tablet] 10 mg PO DAILY 02/17/18 Naproxen Sodium [Aleve] 220 mg PO Q8HP PRN 02/17/18 Ondansetron HCl [Zofran 4 mg Tablet] 1 - 2 tab PO Q6HP PRN #20 tablet 02/18/18 Oxycodone HCl/Acetaminophen [Percocet 5-325 mg Tablet] 1 tab PO Q6HP PRN #10 tab 06/06/20 History of Present Illiness History of Present Illness: SONA DE LA PAZ is a 69 year old female with history of wheeze since laparoscopic cholecystectomy at [facility] 6 days ago, hyperlipidemia, who presented to the ER 2 days ago with complaints of abdominal pain. Patient was also experiencing nausea and vomiting. The pain was mostly epigastric and periumbilical but with some radiation to her chest region. She denies any history of heartburn or reflux. She denies any fever or chills. Had some episodes of nonbloody vomiting. She has been diagnosed with acute pancreatitis and has been receiving treatment while in the ER awaiting transfer to [facility]. She also denies using more than 2 to 3 tablets of Tylenol daily. Notably she had profound transaminitis, hyperbilirubinemia and lipase of over 50,000 upon initial presentation. Patient has been accepted into [facility] but awaiting bed. Plan was for possible ERCP. However, after multiple discussions between ER and hospital administration, decision was taken to admit patient here. Patient currently states her pain is improved but still present. She is currently n.p.o. Her nausea and vomiting have resolved. She denies prior history of pancreatitis. She drinks alcohol only once in a while. Hospital Course Hospital Course: Patient was admitted to the hospital for evaluation of abdominal pain. On presentation, blood work revealed significant transaminitis with AST and ALT of 1000 accompanied with hyperbilirubinemia and elevated lipase of over 59,000. There was high suspicion for gallstone pancreatitis as patient had recently just had a cholecystectomy at [facility]. It was suspected that there was remnant stones/sludge in the common bile duct hence the presentation. Abdominal CT was done which confirmed pancreatitis. MRCP was subsequently performed which did not show any common bile duct dilation but could not of course rule out gallstones. GI was consulted who proceeded with ERCP presence of biliary sludge within the common bile duct. Bile sludge extraction was performed along with sphincterotomy. Evaluation of her pancreatic duct was adequate. Patient is continued on treatment for pancreatitis with IV fluids and pain medications. Notably, despite her leukocytosis and there was no evidence of infection. Her liver enzymes improved significantly. Her lipase trended down and normalized at last measurement was 33 today. Her transaminases are almost back to normal at this point. Her bilirubinemia has resolved. She is tolerating full liquid diet with soft starches. We did have to discontinue fluids yesterday because she was developing crackles. She was given a dose of Lasix today. She remains on room air and oxygenating fine. He has no evidence of shortness of breath. She is ready to go home. I have encouraged her to take bland diet Low-fat and low-cholesterol for the next week and gradually advancing diet. She will be discharged on pain medication. She will follow-up with her primary care provider further care. Physical Exam Vital Signs: Temp Pulse Resp BP Pulse Ox 97.6 F 77 17 159/78 H 93 06/06/20 13:17 06/06/20 13:17 06/06/20 13:17 06/06/20 13:17 06/06/20 13:17 Intake & Output 06/05/20 06/06/20 06/07/20 06:59 06:59 06:59 Intake Total 1630 2530 350 Output Total 1250 550 350 Balance 380 1980 0 Weight 87.4 kg 89.5 kg General appearance: PRESENT: no acute distress, cooperative Neck exam: ABSENT: JVD Respiratory exam: PRESENT: crackles - Mild, unlabored. ABSENT: tachypnea, wheezes Cardiovascular exam: PRESENT: RRR, +S1, +S2. ABSENT: tachycardia GI/Abdominal exam: PRESENT: soft, tenderness - In right upper quadrant but much improved. ABSENT: distended, firm, guarding, rebound, rigid Neurological exam: PRESENT: alert, awake, oriented to person, oriented to place, oriented to time, oriented to situation Psychiatric exam: ABSENT: agitated, anxious Results Laboratory Results: WBC 16.4 10^3/uL (4.0-10.5) H 06/06/20 09:14 RBC 4.03 10^6/uL (3.72-5.28) 06/06/20 09:14 Hgb 11.4 g/dL (12.0-15.5) L 06/06/20 09:14 Hct 34.0 % (36.0-47.0) L 06/06/20 09:14 MCV 85 fl (80-97) 06/06/20 09:14 MCH 28.4 pg (27.0-33.4) 06/06/20 09:14 MCHC 33.6 g/dL (32.0-36.0) 06/06/20 09:14 RDW 13.9 % (11.5-14.0) 06/06/20 09:14 Plt Count 245 10^3/uL (150-450) 06/06/20 09:14 Lymph % (Auto) 8.0 % (13-45) L 06/06/20 09:14 [place] % (Auto) 8.5 % (3-13) 06/06/20 09:14 Eos % (Auto) 1.4 % (0-6) 06/06/20 09:14 Baso % (Auto) 0.4 % (0-2) 06/06/20 09:14 Absolute Neuts (auto) 13.4 10^3/uL (1.7-8.2) H 06/06/20 09:14 Absolute Lymphs (auto) 1.3 10^3/uL (0.5-4.7) 06/06/20 09:14 Absolute Monos (auto) 1.4 10^3/uL (0.1-1.4) 06/06/20 09:14 Absolute Eos (auto) 0.2 10^3/uL (0.0-0.6) 06/06/20 09:14 Absolute Basos (auto) 0.1 10^3/uL (0.0-0.2) 06/06/20 09:14 Total Counted 100 06/04/20 05:00 Seg Neuts % (Manual) 94 % (42-78) H 06/04/20 05:00 Seg Neutrophils % 81.7 % (42-78) H 06/06/20 09:14 Lymphocytes % (Manual) 3 % (13-45) L 06/04/20 05:00 Monocytes % (Manual) 3 % (3-13) 06/04/20 05:00 Eosinophils % (Manual) 0 % (0-6) 06/04/20 05:00 Basophils % (Manual) 0 % (0-2) 06/04/20 05:00 Abs Neuts (Manual) 16.3 10^3/uL (1.7-8.2) H 06/04/20 05:00 Abs Lymphs (Manual) 0.5 10^3/uL (0.5-4.7) 06/04/20 05:00 Abs Monocytes (Manual) 0.5 10^3/uL (0.1-1.4) 06/04/20 05:00 Absolute Eos (Manual) 0.0 10^3/uL (0.0-0.6) 06/04/20 05:00 Abs Basophils (Manual) 0.0 10^3/uL (0.0-0.2) 06/04/20 05:00 Platelet Estimate Cancelled 06/06/20 06:50 Platelet Comment ADEQUATE 06/04/20 05:00 Anisocytosis SLIGHT 06/03/20 06:09 Tear Drop Cells Not Reportable 06/03/20 02:27 Ovalocytes SLIGHT 06/03/20 02:27 Schistocytes SLIGHT 06/03/20 06:09 RBC Morph Comment NORMO-CYTIC/CHROMIC 06/04/20 05:00 PT 13.5 SEC (11.4-15.4) 06/03/20 08:30 INR 1.01 06/03/20 08:30 INR (Anticoag Therapy) Cancelled 06/03/20 08:04 APTT 21.7 SEC (23.5-35.8) L 06/03/20 08:30 Sodium 133.1 mmol/L (137-145) L 06/06/20 06:50 Potassium 4.0 mmol/L (3.6-5.0) 06/06/20 06:50 Chloride 99 mmol/L (98-107) 06/06/20 06:50 Carbon Dioxide 26 mmol/L (22-30) 06/06/20 06:50 Anion Gap 8 (5-19) 06/06/20 06:50 BUN 8 mg/dL (7-20) 06/06/20 06:50 Creatinine 0.34 mg/dL (0.52-1.25) L 06/06/20 06:50 Est GFR ( Amer) > 60 (>60) 06/06/20 06:50 Est GFR (MDRD) Non-Af > 60 (>60) 06/06/20 06:50 Glucose 89 mg/dL (75-110) 06/06/20 06:50 POC Glucose 89 mg/dL (70-110) 06/06/20 11:17 Calcium 8.1 mg/dL (8.4-10.2) L 06/06/20 06:50 Phosphorus 3.1 mg/dL (2.5-4.5) 06/04/20 05:00 Magnesium 1.8 mg/dL (1.6-2.3) 06/06/20 06:50 Total Bilirubin 0.9 mg/dL (0.2-1.3) 06/06/20 06:50 Direct Bilirubin 0.5 mg/dL (0.0-0.4) H 06/06/20 06:50 Neonat Total Bilirubin Not Reportable 06/06/20 06:50 Neonat Direct Bilirubin Not Reportable 06/06/20 06:50 Neonat Indirect Bili Not Reportable 06/06/20 06:50 AST 29 U/L (14-36) 06/06/20 06:50 ALT 130 U/L (<35) H 06/06/20 06:50 Alkaline Phosphatase 202 U/L (38-126) H 06/06/20 06:50 Total Protein 5.1 g/dL (6.3-8.2) L 06/06/20 06:50 Albumin 2.6 g/dL (3.5-5.0) L 06/06/20 06:50 Triglycerides 84 mg/dL (<150) 06/03/20 06:09 Lipase 33.4 U/L (23-300) 06/06/20 06:50 Urine Color DENISE 06/02/20 05:52 Urine Appearance CLEAR 06/02/20 05:52 Urine pH 5.0 (5.0-9.0) 06/02/20 05:52 Ur Specific [place] 1.057 06/02/20 05:52 Urine Protein NEGATIVE mg/dL (NEGATIVE) 06/02/20 05:52 Urine Glucose (UA) NEGATIVE mg/dL (NEGATIVE) 06/02/20 05:52 Urine Ketones TRACE mg/dL (NEGATIVE) H 06/02/20 05:52 Urine Blood NEGATIVE (NEGATIVE) 06/02/20 05:52 Urine Nitrite NEGATIVE (NEGATIVE) 06/02/20 05:52 Urine Bilirubin NEGATIVE (NEGATIVE) 06/02/20 05:52 Urine Urobilinogen 4.0 mg/dL (<2.0) H 06/02/20 05:52 Ur Leukocyte Esterase NEGATIVE (NEGATIVE) 06/02/20 05:52 Urine WBC (Auto) 2 /HPF 06/02/20 05:52 Urine RBC (Auto) 1 /HPF 06/02/20 05:52 Squamous Epi Cells Auto <1 /HPF 06/02/20 05:52 Urine Mucus (Auto) RARE /LPF 06/02/20 05:52 Urine Ascorbic Acid NEGATIVE (NEGATIVE) 06/02/20 05:52 Influenza A (RT-PCR) NEGATIVE (NEGATIVE) 06/03/20 11:49 Influenza B (RT-PCR) NEGATIVE (NEGATIVE) 06/03/20 11:49 RSV (RT-PCR) NEGATIVE (NEGATIVE) 06/03/20 11:49 SARS-CoV-2 Rap RNA(RT-PCR) NEGATIVE (NEGATIVE) 06/03/20 11:49 Slides for Path Review Cancelled 06/06/20 06:50 Impressions: Abdomen/Pelvis CT 06/02/20 00:35 IMPRESSION: Acute pancreatitis. Abdomen MRI 06/02/20 12:28 IMPRESSION: No ductal stones -defects identified. Diffuse inflammatory changes - fluid around the pancreas. Catheter Placement 06/03/20 00:00 IMPRESSION: IMAGE(S) OBTAINED DURING PROCEDURE. Fluoroscopy 06/03/20 00:00 IMPRESSION: IMAGE(S) OBTAINED DURING PROCEDURE. Chest X-Ray 06/05/20 00:00 IMPRESSION: MILD CARDIOMEGALY. INTERSTITIAL PROMINENCE MAY BE DUE TO DEVELOPING INTERSTITIAL EDEMA. SMALL PLEURAL EFFUSIONS. BASILAR ATELECTASIS. Plan Time Spent: Greater than 30 Minutes Stroke Is this a Stroke Patient?: No Acute Heart Failure Is this a Heart Failure Patient?: No
== END 2020-06-06 14:18 | disposition home or self-care (01) | DRG 440 ==
LOC: ER 23:17 → EH 06-03 11:16 → 4N 06-03 13:23 → 2N 06-06 04:07
PROVIDERS: ADMIT Internal Medicine; ATTEND Internal Medicine
PROC: 0F798ZZ Dilation of Common Bile Duct, Via Natural or Artificial Opening Endoscopic (ICD-10-PCS; principal; 2020-06-03 18:00)
DX: K85.90 Acute pancreatitis without necrosis or infection, unspecified (principal); K83.8 Other specified diseases of biliary tract; Z90.49 Acquired absence of other specified parts of digestive tract; E78.5 Hyperlipidemia, unspecified; Z98.890 Other specified postprocedural states; R74.01 Elevation of levels of liver transaminase levels; D72.821 Monocytosis (symptomatic); Z20.822 Contact with and (suspected) exposure to COVID-19
CPT/HCPCS: 36415; 43262; 43277; 71046; 732; 74328; 80053; 81001; 82962; 83690; 83735; 84100; 84478; 85025; 85610; 85730; 87040; 87070; 96361; 96365; 96375; 96376; 99285; 0241U; C9803; J0171; J0330; J1100; J1170; J1610; J1650; J1940; J2250; J2270; J2370; J2405; J2543; J2704; J3010; J3490; J7030; J7050; J7120; Q9967; S0028